=== PATIENT | male | born 1955 | race African-American/Black ===

== ENCOUNTER 2016-06-17 12:38 | Observation (INO) | payer OTHER ==
[2016-06-17] MEDS ORDERED: ADENOSINE 6 MG/2 ML VIAL IVPUSH ONE ×4 (13:07→13:23)
[2016-06-17 13:19] LABS: EOSINOPHIL 0.9 % (0-4.5); MCH 30.2 pg (25.7-33.7); MCHC 32.7 g/dl (32.0-35.9); MEAN CELL VOLUME 92.3 fl (80-96); MEAN PLT VOLUME 9.3 fl (7.5-11.1); NEUTROPHILS 72.1 % (42.8-82.8); PLATELET COUNT 75 K/MM3 (134-434); RDW 15.6 % (11.9-15.9); WHITE BLOOD COUNT 5.2 K/mm3 (4.0-10.0)
[2016-06-17 13:32] LABS: INR 1.28 (0.82-1.09); PROTHROMBIN TIME (PATIENT) 14.1 SEC (9.98-11.88)
[2016-06-17 13:36] LABS: ALBUMIN 2.8 g/dl (3.4-5.0); ANION GAP 9 (8-16); BILIRUBIN,TOTAL 0.4 mg/dL (0.2-1.0); CALCIUM 8.6 mg/dL (8.5-10.1); CO2 25 mmol/L (21-32); CREATININE 1.7 mg/dL (0.7-1.3); GLUCOSE,RANDOM 125 mg/dL (74-106); SGOT/AST 24 U/L (15-37); SGPT/ALT 16 U/L (12-78)
[2016-06-17 13:38] LABS: ALK PHOS 133 U/L (45-117); TROPONIN I < 0.02 ng/ml (0.00-0.05)
--- NOTE | 2016-06-17 14:32 | PDOC ---
History of Present Illness - General Chief Complaint: Irregular Heart Beat Stated Complaint: FAST HEARTBEAT Time Seen by Provider: 06/17/16 12:47 History Source: Patient Exam Limitations: No Limitations - History of Present Illness Initial Comments: 06/17/16 14:26 61-year-old male with the ED with complaints of palpitations, and dizziness. Patient states the past 2 days has been constipated and has been taking over-the -counter medication which did alleviate his constipation but today at his day program after leaving the bathroom he had felt suddenly hot and dizzy. The staff at the day program where he goes to for his methadone and therapy. He currently denies chest pain or dizziness upon arrival. Patient denies previous symptoms in the past and denies cardiac history. Patient does of his of HIV, hep C and IVDA with heroin but currently on methadone. Presenting Symptoms: Dizziness Timing/Duration: reports: resolved prior to arrival Prior Chest Pain/Cardiac Workup: reports: No prior chest pain Associated Symptoms: Yes: Dizziness, Palpitations Past History - Past Medical History Allergies/Adverse Reactions: Allergies Allergy/AdvReac Type Severity Reaction Status Date / Time No Known Allergies Allergy Verified 02/15/16 04:25 Home Medications: Ambulatory Orders Methadone [Dolophine] 40 mg PO DAILY 01/28/13 Abacavir/Dolutegravir/Lamivudi [Triumeq Tablet] 1 each PO DAILY #30 tablet 02/21 Oxycodone HCl/Acetaminophen [Oxycodone-Acetaminophen 10-325] 1 each PO DAILY #7 tablet MDD 1 02/22/16 Elbasvir/Grazoprevir [Zepatier 50-100 mg Tablet] 1 each PO DAILY 05/01/16 Hydrocortisone 1% Ointment [Hytone 1% Ointment -] 1 applic TP BID #1 tube Clotrimazole/Betamet Diprop [Lotrisone Cream (Small Tube)] 1 applic TP BID #1 tube 05/06/16 Loratadine [Claritin] 10 mg PO DAILY #30 tablet 06/09/16 Tamsulosin HCl [Flomax] 0.4 mg PO DAILY #30 cap.er.24h 06/09/16 Valsartan/Hydrochlorothiazide [Diovan Hct 160-25 mg Tablet] 1 combo PO DAILY # 30 tablet 06/13/16 Docusate Sodium [Colace -] 100 mg PO BID #60 capsule 06/16/16 Anemia: Yes Asthma: No Cancer: No Cardiac Disorders: No CVA: No COPD: No CHF: No Dementia: No Diabetes: No GI Disorders: No Disorders: Yes HTN: Yes Hypercholesterolemia: No HIV: Yes Kidney Stones: Yes Liver Disease: Yes (Elevated LFTs, Heroin, Hep C and Alcohol) Suicide Attempt (Hx): No Seizures: No Other medical history: hep C - Immunization History Td Vaccination: Yes TDAP Vaccination: Yes Immunization Up to Date: Yes (FLU AND PNA UP TO DATE) - Psycho/Social/Smoking Cessation Hx Anxiety: No Suicidal Ideation: No Smoking Status: No Smoking History: Former smoker Have you smoked in the past 12 months: No Number of Cigarettes Smoked Daily: 0 If you are a former smoker, when did you quit?: 2YRS Cigars Per Day: 0 Information on smoking cessation initiated: No Hx Alcohol Use: No Drug/Substance Use Hx: Yes Substance Use Type: Heroin Hx Substance Use Treatment: Yes Patient Lives Alone: No Cardiac Specific PMH - Complaint Specific PMHX Pacemaker: No Review of Systems - Review of Systems Able to Perform ROS?: Yes Constitutional: No: Symptoms Reported HEENTM: No: Symptoms Reported Respiratory: No: Symptoms reported Cardiac (ROS): Yes: Lightheadedness, Palpitations ABD/GI: No: Symptoms Reported Musculoskeletal: No: Symptoms Reported Integumentary: No: Symptoms Reported Neurological: Yes: Dizziness Endocrine: No: Symptoms Reported Hematologic/Lymphatic: No: Symptoms Reported *Physical Exam - Vital Signs Last Vital Signs Temp Pulse Resp BP Pulse Ox 98.1 F 98 H 18 138/87 100 06/17/16 12:59 06/17/16 13:46 06/17/16 13:38 06/17/16 13:38 06/17/16 13:38 - Physical Exam General Appearance: Yes: Nourished, Appropriately Dressed. No: Apparent Distress HEENT: negative: Pale Conjunctivae Neck: positive: Supple Respiratory/Chest: positive: Lungs Clear, Normal Breath Sounds. negative: Respiratory Distress, Accessory Muscle Use Cardiovascular: positive: Regular Rhythm, Tachycardia. negative: Murmur Gastrointestinal/Abdominal: positive: Soft. negative: Tenderness Extremity: positive: Normal Capillary Refill. negative: Pedal Edema Integumentary: positive: Normal Color, Warm, Moist Neurologic: positive: Normal Mood/Affect, Motor Strength 5/5 (ambulatory) Heart Score/ECG Review - ECG Impressions Tachycardia: Ventricullar Tachycardia (rate 150.) ED Treatment Course - LABORATORY CBC & Chemistry Diagram: 06/17/16 13:10 06/17/16 13:10 - ADDITIONAL ORDERS Additional order review: Laboratory Results 06/17/16 06/17/16 06/17/16 13:10 13:10 13:10 INR Sodium 137 Potassium 3.5 Chloride 103 Carbon Dioxide 25 Anion Gap 9 BUN 21 H D Creatinine 1.7 H Creat Clearance w eGFR 41.04 Random Glucose 125 H D Calcium 8.6 Total Bilirubin 0.4 D AST 24 D ALT 16 D Alkaline Phosphatase 133 H Creatine Kinase 182 D Creatine Kinase Index 1.3 CK-MB (CK-2) 2.443 CK-MB (CK-2) Rel Index Cancelled Troponin I < 0.02 Total Protein 8.0 Albumin 2.8 L Urine Color Urine Appearance Urine pH Ur Specific [place] Urine Protein Urine Glucose (UA) Urine Ketones Urine Blood Urine Nitrite Urine Bilirubin Urine Urobilinogen Ur Leukocyte Esterase Blood Type A NEGATIVE Antibody Screen Negative 06/17/16 06/17/16 13:10 13:10 INR 1.28 H Sodium Potassium Chloride Carbon Dioxide Anion Gap BUN Creatinine Creat Clearance w eGFR Random Glucose Calcium Total Bilirubin AST ALT Alkaline Phosphatase Creatine Kinase Creatine Kinase Index CK-MB (CK-2) CK-MB (CK-2) Rel Index Troponin I Total Protein Albumin Urine Color Straw Urine Appearance Clear Urine pH 6.0 Ur Specific [place] 1.006 Urine Protein Negative Urine Glucose (UA) Negative Urine Ketones Negative Urine Blood Negative Urine Nitrite Negative Urine Bilirubin Negative Urine Urobilinogen Negative Ur Leukocyte Esterase Negative Blood Type Antibody Screen 06/17/16 13:10 RBC 3.60 L MCV 92.3 MCHC 32.7 RDW 15.6 MPV 9.3 D Neutrophils % 72.1 Lymphocytes % 17.7 Monocytes % 8.3 Eosinophils % 0.9 Basophils % 1.0 - RADIOLOGY Radiology Studies Ordered: Category Date Time Status CHEST X-RAY PORTABLE* [RAD] Stat Radiology 06/17/16 13:08 Completed - Medications Given in the ED: ED Medications Discontinued Medications Generic Name Dose Route Start Last Admin Trade Name Freq PRN Reason Stop Dose Admin Adenosine 6 mg 06/17/16 13:07 06/17/16 13:20 Adenocard - IVPUSH 06/17/16 13:08 6 mg ONCE ONE Administration Adenosine 12 mg 06/17/16 13:23 06/17/16 13:25 Adenocard - IVPUSH 06/17/16 13:24 12 mg ONCE ONE Administration Diltiazem HCl 30 mg 06/17/16 14:41 06/17/16 15:02 Cardizem - PO 06/17/16 14:42 30 mg ONCE ONE Administration Medical Decision Making - Medical Decision Making 06/17/16 13:30 Patient arrives for evaluation of palpitations and elevated heart rate noted in day program where she receives her methadone. Patient denies previous symptoms and currently is asymptomatic. Patient initially had dizziness with palpitations after moving her bowels. Patient found to be in SVT on EKG and monitor. Attempted vagal manuever/massage with no improvment. IV access was established by EMS. Patient was ordered for adenosine 6 mg IVP, placed on EKG and oxygen. Patient with normal blood pressure. 06/17/16 13:37 Patient did not improve so was given an additional dose of adenosine 12 mg IV push. Patient then converted to normal sinus rhythm with a rate of 106. Patient remains asymptomatic. IV fluids running. Blood pressure 139/74. Call placed to Dr. Fernández. Will admit to the hospitalist. 06/17/16 14:40 chest x-ray negative Laboratory Tests 06/17/16 06/17/16 06/17/16 13:10 13:10 13:10 WBC 5.2 Hgb 10.9 L Hct 33.2 L Neutrophils % 72.1 INR 1.28 H Sodium Potassium Chloride Carbon Dioxide Anion Gap BUN Creatinine Creat Clearance w eGFR Random Glucose Calcium AST ALT Alkaline Phosphatase Troponin I Urine Ketones Negative Urine Nitrite Negative Ur Leukocyte Esterase Negative Blood Type 06/17/16 06/17/16 13:10 13:10 WBC Hgb Hct Neutrophils % INR Sodium 137 Potassium 3.5 Chloride 103 Carbon Dioxide 25 Anion Gap 9 BUN 21 H D Creatinine 1.7 H Creat Clearance w eGFR 41.04 Random Glucose 125 H D Calcium 8.6 AST 24 D ALT 16 D Alkaline Phosphatase 133 H Troponin I < 0.02 Urine Ketones Urine Nitrite Ur Leukocyte Esterase Blood Type A NEGATIVE Spoke to Dr. Fernández who states to give Cardizem 30 mg now by mouth and to continue every 6 hours *DC/Admit/Observation/Transfer Diagnosis at time of Disposition: SVT (supraventricular tachycardia) - Discharge Dispostion Admit: Yes Decision to Admit order Date/Time: Decision to Admit Order Category Date Time Status Decision to Admit to Hospital Routine Admission 06/17/16 14:42 Active
[2016-06-17 14:33] LABS: URINE APPEARANCE CLEAR; URINE BILIRUBIN NEGATIVE (NEGATIVE); URINE BLOOD NEGATIVE (NEGATIVE); URINE COLOR STRAW; URINE GLUCOSE (UA) NEGATIVE (NEGATIVE); URINE KETONE NEGATIVE (NEGATIVE); URINE LEUK ESTERASE NEGATIVE (NEGATIVE); URINE NITRITE NEGATIVE (NEGATIVE); URINE PROTEIN NEGATIVE (NEGATIVE); URINE UROBILINOGEN NEGATIVE E.U./dl (0.2-1.0)
[2016-06-17] MEDS ORDERED: dilTIAZem HCL 30 MG TABLET (FP) PO ONE (14:41)
--- NOTE | 2016-06-17 14:42 | PDOC ---
*Physical Exam - Vital Signs Last Vital Signs Temp Pulse Resp BP Pulse Ox 98.1 F 98 H 18 138/87 100 06/17/16 12:59 06/17/16 13:46 06/17/16 13:38 06/17/16 13:38 06/17/16 13:38 ED Treatment Course - LABORATORY CBC & Chemistry Diagram: 06/17/16 13:10 06/17/16 13:10 - ADDITIONAL ORDERS Additional order review: Laboratory Results 06/17/16 06/17/16 06/17/16 13:10 13:10 13:10 INR Sodium 137 Potassium 3.5 Chloride 103 Carbon Dioxide 25 Anion Gap 9 BUN 21 H D Creatinine 1.7 H Creat Clearance w eGFR 41.04 Random Glucose 125 H D Calcium 8.6 Total Bilirubin 0.4 D AST 24 D ALT 16 D Alkaline Phosphatase 133 H Creatine Kinase 182 D Creatine Kinase Index 1.3 CK-MB (CK-2) 2.443 CK-MB (CK-2) Rel Index Cancelled Troponin I < 0.02 Total Protein 8.0 Albumin 2.8 L Urine Color Urine Appearance Urine pH Ur Specific [place] Urine Protein Urine Glucose (UA) Urine Ketones Urine Blood Urine Nitrite Urine Bilirubin Urine Urobilinogen Ur Leukocyte Esterase Blood Type A NEGATIVE Antibody Screen Negative 06/17/16 06/17/16 13:10 13:10 INR 1.28 H Sodium Potassium Chloride Carbon Dioxide Anion Gap BUN Creatinine Creat Clearance w eGFR Random Glucose Calcium Total Bilirubin AST ALT Alkaline Phosphatase Creatine Kinase Creatine Kinase Index CK-MB (CK-2) CK-MB (CK-2) Rel Index Troponin I Total Protein Albumin Urine Color Straw Urine Appearance Clear Urine pH 6.0 Ur Specific [place] 1.006 Urine Protein Negative Urine Glucose (UA) Negative Urine Ketones Negative Urine Blood Negative Urine Nitrite Negative Urine Bilirubin Negative Urine Urobilinogen Negative Ur Leukocyte Esterase Negative Blood Type Antibody Screen 06/17/16 13:10 RBC 3.60 L MCV 92.3 MCHC 32.7 RDW 15.6 MPV 9.3 D Neutrophils % 72.1 Lymphocytes % 17.7 Monocytes % 8.3 Eosinophils % 0.9 Basophils % 1.0 - Medications Given in the ED: ED Medications Discontinued Medications Generic Name Dose Route Start Last Admin Trade Name Freq PRN Reason Stop Dose Admin Adenosine 6 mg 06/17/16 13:07 06/17/16 13:20 Adenocard - IVPUSH 06/17/16 13:08 6 mg ONCE ONE Administration Adenosine 12 mg 06/17/16 13:23 06/17/16 13:25 Adenocard - IVPUSH 06/17/16 13:24 12 mg ONCE ONE Administration Medical Decision Making - Medical Decision Making 06/17/16 14:41 61y M hx of HIV, HCV on meds, IVDA on methadone, presents with tachcyardia - pt was at his day program, was having a BM and was straining, then felt hot and dizzy. The staffa t the day program noted that he was tachycardic. ON arrival the pts HR was in the 150s, bp was normal. His EKG showed SVT. Vagal maneuvers were attemped without success. The pt was given 6mg of adenosine w/o improvement followed by 12mg of adenosine which broke the pts HR into a NSR. BP stable throughout. CRITICAL CARE DOCUMENTATION: I spent ~35 minutes of Critical Care time, excluding separately billable procedures, involving high complexity decision making to assess, manipulate and support vital system function(s) to treat single or multiple vital organ system failure and/or to prevent further life threatening deterioration of the patient' s condition. *DC/Admit/Observation/Transfer Diagnosis at time of Disposition: SVT (supraventricular tachycardia) - Referrals Referrals: Marcus Garza MD [Primary Care Provider] -
[2016-06-17] MEDS ORDERED: dilTIAZem HCL 30 MG TABLET (FP) ONE (14:59)
[2016-06-17 17:29] VITALS: BMI 27.7
--- NOTE | 2016-06-17 18:48 | CON.CARD ---
Consult Consult Specialty:: cardiology Reason for Consultation:: arrhythmia - History of Present Illness History of Present Illness: 61-year-old male came to the ER with complaints of palpitations and dizziness. Patient stated that for the past 2 days he has been constipated and has been taking a [id number] medication which helped, but today at his day program , after leaving the bathroom, he felt suddenly hot and dizzy, and had palpitations. He currently denies chest pain or dizziness upon arrival. Patient denies previous symptoms in the past and denies cardiac history. Patient has PMHx of HIV, hep C and IVDA with heroin; currently on methadone. Pt was found to be in SVT; the arrhythmia was converted to sinus rhythm with IV adenosine. - History Source History Provided By: Patient, Medical Record - Past Medical History Hepatobiliary: Yes: Hepatitis C Infectious Disease: Yes: HIV Psych: Yes: Other (substance abuse) - Alcohol/Substance Use Hx Alcohol Use: No - Smoking History Smoking history: Former smoker Have you smoked in the past 12 months: No Aproximately how many cigarettes per day: 0 If you are a former smoker, when did you quit?: 2YRS Home Medications - Allergies Allergies/Adverse Reactions: Allergies Allergy/AdvReac Type Severity Reaction Status Date / Time No Known Allergies Allergy Verified 02/15/16 04:25 - Home Medications Home Medications: Ambulatory Orders Methadone [Dolophine] 50 mg PO DAILY 01/28/13 Abacavir/Dolutegravir/Lamivudi [Triumeq Tablet] 1 each PO DAILY #30 tablet 02/21 Elbasvir/Grazoprevir [Zepatier 50-100 mg Tablet] 1 each PO DAILY 05/01/16 Tamsulosin HCl [Flomax] 0.4 mg PO DAILY #30 cap.er.24h 06/09/16 Valsartan/Hydrochlorothiazide [Diovan Hct 160-25 mg Tablet] 1 combo PO DAILY # 30 tablet 06/13/16 Vital Signs: Vital Signs Temperature 97.5 F L 06/17/16 17:00 Pulse Rate 85 06/17/16 17:00 Respiratory Rate 20 06/17/16 17:00 Blood Pressure 143/84 06/17/16 17:00 O2 Sat by Pulse Oximetry (%) 100 06/17/16 16:16 - Other Data Labs, Other Data: INR, PTT INR 1.28 (0.82-1.09) H 06/17/16 13:10 Imaging - Results Chest X-ray: Image Reviewed (normal study) Problem List - Problems (1) BPH (benign prostatic hyperplasia) Code(s): N40.0 - BENIGN PROSTATIC HYPERPLASIA WITHOUT LOWER URINRY TRACT SYMP (2) SVT (supraventricular tachycardia) Assessment/Plan: Start diltiazem 30 mg q6h; change to long-acting tomorrow if the medication is tolerated. ECHO for LVEF, chamber sizes, valve status. TSH Code(s): I47.1 - SUPRAVENTRICULAR TACHYCARDIA (3) HIV (human immunodeficiency virus infection) Assessment/Plan: f/u with ID. Code(s): Z21 - ASYMPTOMATIC HUMAN IMMUNODEFICIENCY VIRUS INFECTION STATUS (4) Hepatitis C Code(s): B19.20 - UNSPECIFIED VIRAL HEPATITIS C WITHOUT HEPATIC COMA (5) Hypertension Assessment/Plan: On valsartan/HCTZ at home (f/u renal insufficiency). Now on diltiazem for HR control; F/u BP and HR. ECHO for LVEF, wall motion thickness, chamber sizes. TSH WNL in 2016. Code(s): I10 - ESSENTIAL (PRIMARY) HYPERTENSION (6) Methadone maintenance therapy patient Code(s): F11.20 - OPIOID DEPENDENCE, UNCOMPLICATED (7) Hypotestosteronemia Code(s): E29.1 - TESTICULAR HYPOFUNCTION
--- NOTE | 2016-06-17 19:10 | HP ---
CHIEF COMPLAINT: Palpitations and dizziness PCP: Dr. Garza HISTORY OF PRESENT ILLNESS: 61 y/o M with PMH of HIV, HCV, hx of IVDA, on methadone presents to ER after c/ o palpitations and dizziness. Pt was at drug rehab program where he had to use bathroom and had BM after having 2 days of constipation. Pt got up from toilet and began feeling hot. Soon afterwards he began feeling dizziness and palpitations and nurse there measured his BP (systolic 140s), and pulse which he states was "fast" but does not recall the pulse rate. EMS was called when he did not begin to feel better. He denied any CP, SOB, pain radiating to jaw or arms, abd pain. He began feeling better before EMS arrived. He states he has been in the methadone program for 6-7 months but still intermittently uses heroin. Last time he used was 5 days ago via sniffing. He denies ever having similar symptoms. He says he is compliant with all his medications and follows with Dr. Garza regularly. In ER he was found to have SVT and was given 6mg adenosine with no conversion then given 12 mg adenosine with successful conversion to NSR. He currently feels back at baseline. Denies any CP, SOB, abd pain, N/V/F/C, palpitations, light-headedness, dizziness, and has no trouble ambulating currently. ER course was notable for: (1) Adenosine 6mg IV, Adenosine 12mg IV (2) (3) Recent Travel: denies PAST MEDICAL HISTORY: HIV, HCV, hx of IVDA PAST SURGICAL HISTORY: denies any surgeries Social History: Smoking: quit 2 years ago, smoked 1ppd for 20 years Alcohol: denies Drugs: heroin use, on methadone Family History: Mother: HTN Allergies No Known Allergies Allergy (Verified 02/15/16 04:25) HOME MEDICATIONS: Medication Instructions Recorded Methadone [Dolophine] 50 mg PO DAILY 01/28/13 Abacavir/Dolutegravir/Lamivudi 1 each PO DAILY #30 tablet 02/22/16 [Triumeq Tablet] Elbasvir/Grazoprevir [Zepatier 1 each PO DAILY 05/01/16 50-100 mg Tablet] Tamsulosin HCl [Flomax] 0.4 mg PO DAILY #30 cap.er.24h 01/23/17 Valsartan/Hydrochlorothiazide 1 combo PO DAILY #30 tablet 06/13/16 [Diovan Hct 160-25 mg Tablet] REVIEW OF SYSTEMS CONSTITUTIONAL: Absent: fever, chills, diaphoresis, generalized weakness, malaise, loss of appetite, weight change HEENT: Absent: rhinorrhea, nasal congestion, throat pain, throat swelling, difficulty swallowing, mouth swelling, ear pain, eye pain, visual changes CARDIOVASCULAR: Absent: chest pain, syncope, palpitations, irregular heart rate, lightheadedness , peripheral edema RESPIRATORY: Absent: cough, shortness of breath, dyspnea with exertion, orthopnea, wheezing, stridor, hemoptysis GASTROINTESTINAL: Absent: abdominal pain, abdominal distension, nausea, vomiting, diarrhea, constipation, melena, hematochezia GENITOURINARY: Absent: dysuria, frequency, urgency, hesitancy, hematuria, flank pain, genital pain MUSCULOSKELETAL: Absent: myalgia, arthralgia, joint swelling, back pain, neck pain SKIN: Absent: rash, itching, pallor HEMATOLOGIC/IMMUNOLOGIC: Absent: easy bleeding, easy bruising, lymphadenopathy, frequent infections ENDOCRINE: Absent: unexplained weight gain, unexplained weight loss, heat intolerance, cold intolerance NEUROLOGIC: Absent: headache, focal weakness or paresthesias, dizziness, unsteady gait, seizure, mental status changes, bladder or bowel incontinence PSYCHIATRIC: Absent: anxiety, depression, suicidal or homicidal ideation, hallucinations. PHYSICAL EXAMINATION Vital Signs - 24 hr 06/17/16 06/17/16 06/17/16 15:45 16:16 17:00 Temperature 97.5 F L Pulse Rate 105 H 85 Pulse Rate [ 105 H Apical] Respiratory 18 18 20 Rate Blood Pressure 148/92 143/84 Blood Pressure 148/92 [Right Arm] O2 Sat by Pulse 100 100 Oximetry (%) GENERAL: Awake, alert, and fully oriented, in no acute distress. HEAD: Normal with no signs of trauma. EYES: Pupils equal, round and reactive to light, extraocular movements intact, sclera anicteric, conjunctiva clear. No lid lag. EARS, NOSE, THROAT: Ears normal, nares patent, oropharynx clear without exudates. Moist mucous membranes. NECK: Normal range of motion, supple without lymphadenopathy, JVD, or masses. LUNGS: Breath sounds equal, clear to auscultation bilaterally. No wheezes, and no crackles. No accessory muscle use. HEART: Regular rate and rhythm, normal S1 and S2 without murmur, rub or gallop. ABDOMEN: Soft, nontender, not distended, normoactive bowel sounds, no guarding, no rebound, no masses. No hepatomegaly or splenomegaly. MUSCULOSKELETAL: Normal range of motion at all joints. No bony deformities or tenderness. No CVA tenderness. UPPER EXTREMITIES: 2+ pulses, warm, well-perfused. No cyanosis. No clubbing. Cap refill <2 seconds. No peripheral edema. LOWER EXTREMITIES: 2+ pulses, warm, well-perfused. No calf tenderness. No peripheral edema. NEUROLOGICAL: Cranial nerves II-XII intact. Normal speech. Normal gait. PSYCHIATRIC: Cooperative. Good eye contact. Appropriate mood and affect. SKIN: Warm, dry, normal turgor, no rashes or lesions noted. CBCD WBC 5.2 K/mm3 (4.0-10.0) 06/17/16 13:10 RBC 3.60 M/mm3 (4.00-5.60) L 06/17/16 13:10 Hgb 10.9 GM/dL (11.7-16.9) L 06/17/16 13:10 Hct 33.2 % (35.4-49) L 06/17/16 13:10 MCV 92.3 fl (80-96) 06/17/16 13:10 MCHC 32.7 g/dl (32.0-35.9) 06/17/16 13:10 RDW 15.6 % (11.9-15.9) 06/17/16 13:10 Plt Count 75 K/MM3 (134-434) L 06/17/16 13:10 MPV 9.3 fl (7.5-11.1) D 06/17/16 13:10 CMP Sodium 137 mmol/L (136-145) 06/17/16 13:10 Potassium 3.5 mmol/L (3.5-5.1) 06/17/16 13:10 Chloride 103 mmol/L (98-107) 06/17/16 13:10 Carbon Dioxide 25 mmol/L (21-32) 06/17/16 13:10 Anion Gap 9 (8-16) 06/17/16 13:10 BUN 21 mg/dL (7-18) H D 06/17/16 13:10 Creatinine 1.7 mg/dL (0.7-1.3) H 06/17/16 13:10 Creat Clearance w eGFR 41.04 (>60) 06/17/16 13:10 Random Glucose 125 mg/dL (74-106) H D 06/17/16 13:10 Calcium 8.6 mg/dL (8.5-10.1) 06/17/16 13:10 Total Bilirubin 0.4 mg/dL (0.2-1.0) D 06/17/16 13:10 AST 24 U/L (15-37) D 06/17/16 13:10 ALT 16 U/L (12-78) D 06/17/16 13:10 Alkaline Phosphatase 133 U/L (45-117) H 06/17/16 13:10 Total Protein 8.0 g/dl (6.4-8.2) 06/17/16 13:10 Albumin 2.8 g/dl (3.4-5.0) L 06/17/16 13:10 CARDIAC ENZYMES Creatine Kinase 182 IU/L (39-308) D 06/17/16 13:10 Troponin I < 0.02 ng/ml (0.00-0.05) 06/17/16 13:10 ASSESSMENT/PLAN: 61 y/o M w/PMH of HIV (on meds), HCV (on meds), IVDA, on methadone presented to ER with SVT and was successfully converted to NSR and currently in obs on tele. -SVT -Successful conversion via adenosine -Monitor on tele -Trops neg X1, will continue to trend -Echo ordered -Currently in NSR, denies any palpitations, CP -TSH -cardio on board -HTN -c/w diovan 160/25 po qd -HIV -c/w meds -HCV -c/w meds -Dispo: -Monitor on tele overnight, most likely will be able to discharge tomorrow if he continues to stay in NSR Visit type - Emergency Visit Emergency Visit: Yes ED Registration Date: 06/17/16 Care time: The patient presented to the Emergency Department on the above date and was hospitalized for further evaluation of their emergent condition. - New Patient This patient is new to me today: Yes Date on this admission: 06/17/16 - Critical Care Critical Care patient: No
--- NOTE | 2016-06-17 19:58 | PN ---
Teaching Attending Note Name of Resident: Jorge Luis Haynes ATTENDING PHYSICIAN STATEMENT I saw and evaluated the patient. I reviewed the resident's note and discussed the case with the resident. I agree with the resident's findings and plan as documented. SUBJECTIVE: This is a 61-year-old man with a history of HIV, hepatitis C, HTN, BPH, IV drug use who was at [facility] for Methadone today when he suddenly became hot and dizzy. He had palpitations. He was found to be tachycardic and was sent to the ER. In the ER, he was found to be in SVT. He was treated with Adenosine 6 mg IV without results then 12 mg IV, after which he converted to sinus rhythm. He currently feels well. OBJECTIVE: Vital Signs Period Temp Pulse Resp BP Sys/Skinner Pulse Ox Last 24 Hr 97.5 F-98.1 F 85-148 18-20 137-148/84-95 100-100 HEART: S1 S2, RRR LUNGS: Clear ABDOMEN: Soft, non-tender, non-distended, normal BS EXTREMITIES: No edema ASSESSMENT AND PLAN: 1. SVT - Converted to sinus rhythm with Adenosine - Observe on telemetry - Serial troponins - Echocardiogram - Cardiology consult 2. HIV - Continue Triumeq 3. Hepatitis C - Continue Zepatier 4. Hypertension - Continue Diovan HCT 5. Opiate dependence - Continue Methadone 6. BPH - Continue Flomax
--- NOTE | 2016-06-17 23:14 | EKG ---
Test Reason : Blood Pressure : / mmHG Vent. Rate : 145 BPM Atrial Rate : 147 BPM P-R Int : 000 ms QRS Dur : 086 ms QT Int : 290 ms P-R-T Axes : 000 040 -72 degrees QTc Int : 450 ms SUPRAVENTRICULAR TACHYCARDIA WITH OCCASIONAL PREMATURE VENTRICULAR COMPLEXES NONSPECIFIC ST AND T WAVE ABNORMALITY ABNORMAL ECG WHEN COMPARED WITH ECG OF 28-JAN-2013 21:38, NOTE RHYTHM CHANGE VENT. RATE HAS INCREASED Confirmed by MINE PADGETT, MCKINLEY ([id number]) on 06/17/2016 11:14:27 PM Referred By: Confirmed By:MCKINLEY BLOUNT MD
[2016-06-18 08:01] LABS: TROPONIN I 0.02 ng/ml (0.00-0.05)
[2016-06-18 08:21] LABS: THYROID STIMULATING HORMONE 3.78 uIU/ml (0.358-3.74)
[2016-06-18] MEDS ORDERED: TAMSULOSIN HCL 0.4 MG CAP.ER.24H (FP) PO SCH (10:00)
[2016-06-18] MEDS ORDERED: PATIENT'S OWN MEDICATION (NON-FORMULARY) (Valsartan/Hydrochlorothiazide [Diovan Hct 160-25 PO SCH (10:00)
[2016-06-18] MEDS ORDERED: METHADONE HCL 40 MG DISPERSABLE TABLET PO SCH (10:00)
[2016-06-18] MEDS ORDERED: HYDROCHLOROTHIAZIDE 25 MG TABLET (FP) PO SCH (10:00)
[2016-06-18] MEDS ORDERED: VALSARTAN 160 MG TABLET (UD) PO SCH (10:00)
--- NOTE | 2016-06-18 11:23 | PN ---
Progress Note, Physician History of Present Illness: 61-year-old male came to the ER with complaints of palpitations and dizziness. Patient stated that for the past 2 days he has been constipated and has been taking a [id number] medication which helped, but today at his day program , after leaving the bathroom, he felt suddenly hot and dizzy, and had palpitations. He currently denies chest pain or dizziness upon arrival. Patient denies previous symptoms in the past and denies cardiac history. Patient has PMHx of HIV, hep C and IVDA with heroin; currently on methadone. Pt was found to be in SVT; the arrhythmia was converted to sinus rhythm with IV adenosine. - Current Medication List Current Medications: Active Medications Hydrochlorothiazide (Hctz -) 25 mg PO DAILY [facility] Last Admin: 06/18/16 10:04 Dose: 25 mg Methadone HCl (Dolophine -) 50 mg PO DAILY [facility] Stop: 06/19/16 09:59 Tamsulosin HCl (Flomax -) 0.4 mg PO DAILY [facility] Last Admin: 06/18/16 10:04 Dose: 0.4 mg Valsartan (Diovan -) 160 mg PO DAILY [facility] Last Admin: 06/18/16 10:03 Dose: 160 mg - Objective Vital Signs: Vital Signs Temperature 98.2 F 06/18/16 10:00 Pulse Rate 76 06/18/16 10:00 Respiratory Rate 14 06/18/16 10:00 Blood Pressure 118/62 06/18/16 10:00 O2 Sat by Pulse Oximetry (%) 98 06/18/16 06:00 Eyes: Yes: WNL, Conjunctiva Clear, EOM Intact HENT: Yes: WNL, Atraumatic, Normocephalic Neck: Yes: WNL, Supple, Trachea Midline Cardiovascular: Yes: WNL, Regular Rate and Rhythm Respiratory: Yes: WNL, Regular, CTA Bilaterally Gastrointestinal: Yes: WNL, Normal Bowel Sounds Genitourinary: Yes: WNL Musculoskeletal: Yes: WNL Extremities: Yes: WNL Edema: No Integumentary: Yes: WNL Neurological: Yes: WNL, Alert, Oriented ...Motor Strength: WNL Psychiatric: Yes: WNL Labs: INR, PTT INR 1.28 (0.82-1.09) H 06/17/16 13:10 Assessment/Plan Problems (1) BPH (benign prostatic hyperplasia) Code(s): N40.0 - BENIGN PROSTATIC HYPERPLASIA WITHOUT LOWER URINRY TRACT SYMP (2) SVT (supraventricular tachycardia) Assessment/Plan: Start diltiazem 30 mg q6h; change to long-acting tomorrow if the medication is tolerated. ECHO for LVEF, chamber sizes, valve status. TSH Code(s): I47.1 - SUPRAVENTRICULAR TACHYCARDIA (3) HIV (human immunodeficiency virus infection) Assessment/Plan: f/u with ID. Code(s): Z21 - ASYMPTOMATIC HUMAN IMMUNODEFICIENCY VIRUS INFECTION STATUS (4) Hepatitis C Code(s): B19.20 - UNSPECIFIED VIRAL HEPATITIS C WITHOUT HEPATIC COMA (5) Hypertension Assessment/Plan: On valsartan/HCTZ at home (f/u renal insufficiency). Now on diltiazem for HR control; F/u BP and HR. ECHO for LVEF, wall motion thickness, chamber sizes. TSH WNL in 2016. Code(s): I10 - ESSENTIAL (PRIMARY) HYPERTENSION (6) Methadone maintenance therapy patient Code(s): F11.20 - OPIOID DEPENDENCE, UNCOMPLICATED (7) Hypotestosteronemia Code(s): E29.1 - TESTICULAR HYPOFUNCTION
[2016-06-18 13:22] VITALS: PULSE 74; TEMP 97.8
--- NOTE | 2016-06-18 13:42 | EKG ---
Test Reason : Blood Pressure : / mmHG Vent. Rate : 088 BPM Atrial Rate : 088 BPM P-R Int : 228 ms QRS Dur : 078 ms QT Int : 384 ms P-R-T Axes : 069 032 023 degrees QTc Int : 464 ms SINUS RHYTHM WITH 1ST DEGREE A-V BLOCK OTHERWISE NORMAL ECG WHEN COMPARED WITH ECG OF 17-JUN-2016 13:30, PREMATURE VENTRICULAR COMPLEXES ARE NO LONGER PRESENT Confirmed by DEBBIE PADGETT, SHILPA ([id number]) on 06/18/2016 1:41:47 PM Referred By: CLARISSE BOLDEN DR Confirmed By:SHILPA LEWIS MD
--- NOTE | 2016-06-18 14:16 | DS ---
Physical Exam: ATTENDING PHYSICIAN STATEMENT I saw and evaluated the patient. I reviewed the resident's note and discussed the case with the resident. I agree with the resident's findings and plan as documented. SUBJECTIVE: seen and evaluated at the bedside OBJECTIVE: resting comfortably in bed ASSESSMENT AND PLAN: 61 y/o M with PMH of HIV, HCV, hx of IVDA, on methadone admitted for SVT -pt converted to NSR after adenosine 6mg and then 12mg was given -remained in NSR on telemetry overnight -trops negative and no ischemic changes on EKG -no mention of gross valvular dysfunction or atrial dilation noted on 2D echo -recommendation from cardio attending yesterday was to start diltiazem 30 Q6 but this was not done and pt has still remained in NSR; follow up with cardio if this is still needed -pt is currently asymptomatic and will be discharged home today after discussing with cardio attending <Hever Gold - Last Filed: 06/18/16 15:29> Physical Exam: SUBJECTIVE: Patient seen and examined at bedside. Feels well today. Denies any chest pain, tightness, palpitations, N/V/F/C, light-headedness, dizziness. OBJECTIVE: Vital Signs Temperature 97.8 F 06/18/16 13:20 Pulse Rate 74 06/18/16 13:20 Respiratory Rate 14 06/18/16 13:20 Blood Pressure 154/79 06/18/16 13:20 O2 Sat by Pulse Oximetry (%) 96 06/18/16 10:00 PHYSICAL EXAM GENERAL: Awake, alert, and fully oriented, in no acute distress. HEAD: Normal with no signs of trauma. EYES: Pupils equal, round and reactive to light, extraocular movements intact, sclera anicteric, conjunctiva clear. No lid lag. EARS, NOSE, THROAT: Ears normal, nares patent, oropharynx clear without exudates. Moist mucous membranes. NECK: Normal range of motion, supple without lymphadenopathy, JVD, or masses. LUNGS: Breath sounds equal, clear to auscultation bilaterally. No wheezes, and no crackles. No accessory muscle use. HEART: Regular rate and rhythm, normal S1 and S2 without murmur, rub or gallop. ABDOMEN: Soft, nontender, not distended, normoactive bowel sounds, no guarding, no rebound, no masses. No hepatomegaly or splenomegaly. MUSCULOSKELETAL: Normal range of motion at all joints. No bony deformities or tenderness. No CVA tenderness. UPPER EXTREMITIES: 2+ pulses, warm, well-perfused. No cyanosis. No clubbing. Cap refill <2 seconds. No peripheral edema. LOWER EXTREMITIES: 2+ pulses, warm, well-perfused. No calf tenderness. No peripheral edema. NEUROLOGICAL: Cranial nerves II-XII intact. Normal speech. Normal gait. PSYCHIATRIC: Cooperative. Good eye contact. Appropriate mood and affect. SKIN: Warm, dry, normal turgor, no rashes or lesions noted. LABS Laboratory Results - last 24 hr 06/17/16 06/18/16 18:35 05:35 Troponin I 0.02 0.02 TSH 3.78 H D HOSPITAL COURSE: Date of Admission:06/17/16 Date of Discharge: 06/18/16 61 y/o M with PMH of HIV, HCV, hx of IVDA, on methadone presents to ER after c/ o palpitations and dizziness. Pt was at drug rehab program where he had to use bathroom and had BM after having 2 days of constipation. Pt got up from toilet and began feeling hot. Soon afterwards he began feeling dizziness and palpitations and nurse there measured his BP (systolic 140s), and pulse which he states was "fast" but does not recall the pulse rate. EMS was called when he did not begin to feel better. He denied any CP, SOB, pain radiating to jaw or arms, abd pain. He began feeling better before EMS arrived. He states he has been in the methadone program for 6-7 months but still intermittently uses heroin. Last time he used was 5 days ago via sniffing. He denies ever having similar symptoms. He says he is compliant with all his medications and follows with Dr. Garza regularly. In ER he was found to have SVT and was given 6mg adenosine with no conversion then given 12 mg adenosine with successful conversion to NSR. Pt was observed overnight in hospital and on tele monitor had no episodes of SVT , only PVCs were noted. He had echo done which was unremarkable with normal EF and no LV wall abnormalities. He did not have any symptoms over night or the next morning and felt that he was back at baseline. Pt was discharged and told to f/u with PCP in 1 week and Cardiology (Dr. Mascitelli) in 2 weeks. Minutes to complete discharge: 35 <Jorge Luis Haynes - Last Filed: 06/18/16 17:24> Discharge Summary Current Active Problems Hypertension complications (Acute) BPH (benign prostatic hyperplasia) (Chronic) HIV (human immunodeficiency virus infection) (Chronic) Hepatitis C (Chronic) Hypertension (Chronic) Methadone maintenance therapy patient (Chronic) - Home Medications Comprehensive Discharge Medication List: Ambulatory Orders Methadone [Dolophine] 50 mg PO DAILY 01/28/13 Abacavir/Dolutegravir/Lamivudi [Triumeq Tablet] 1 each PO DAILY #30 tablet 02/21 Elbasvir/Grazoprevir [Zepatier 50-100 mg Tablet] 1 each PO DAILY 05/01/16 Tamsulosin HCl [Flomax] 0.4 mg PO DAILY #30 cap.er.24h 06/09/16 Valsartan/Hydrochlorothiazide [Diovan Hct 160-25 mg Tablet] 1 combo PO DAILY # 30 tablet 06/13/16 <Hever Gold - Last Filed: 06/18/16 15:29> Reason For Visit: SUPRAVENTRICULAR TACYCARDIA Current Active Problems Hypertension complications (Acute) SVT (supraventricular tachycardia) (Acute) BPH (benign prostatic hyperplasia) (Chronic) HIV (human immunodeficiency virus infection) (Chronic) Hepatitis C (Chronic) Hypertension (Chronic) Hypotestosteronemia (Chronic) Methadone maintenance therapy patient (Chronic) - Home Medications Comprehensive Discharge Medication List: Ambulatory Orders Methadone [Dolophine] 50 mg PO DAILY 01/28/13 Abacavir/Dolutegravir/Lamivudi [Triumeq Tablet] 1 each PO DAILY #30 tablet 02/21 Elbasvir/Grazoprevir [Zepatier 50-100 mg Tablet] 1 each PO DAILY 05/01/16 Tamsulosin HCl [Flomax] 0.4 mg PO DAILY #30 cap.er.24h 06/09/16 Valsartan/Hydrochlorothiazide [Diovan Hct 160-25 mg Tablet] 1 combo PO DAILY # 30 tablet 06/13/16 <Jorge Luis Haynes - Last Filed: 06/18/16 17:24> Condition: Improved - Instructions Diet, Activity, Other Instructions: Please follow with your primary care doctor within 1 week. If you begin to feel chest pain, dizziness, feel faint please come back to the ER. Continue taking your medications as prescribed before coming to the hospital. Referrals: Marcus Garza MD [Primary Care Provider] - Disposition: HOME This patient is new to me today: No Emergency Visit: Yes ED Registration Date: 06/17/16 Care time: The patient presented to the Emergency Department on the above date and was hospitalized for further evaluation of their emergent condition. Critical Care patient: No - Discharge Referral Referred to [facility] No <Jorge Luis Haynes - Last Filed: 06/18/16 17:24>
[2016-06-18 14:43] VITALS: BP 154/79
--- NOTE | 2016-06-24 17:50 | EKG ---
Test Reason : Blood Pressure : / mmHG Vent. Rate : 106 BPM Atrial Rate : 106 BPM P-R Int : 208 ms QRS Dur : 068 ms QT Int : 336 ms P-R-T Axes : 064 044 031 degrees QTc Int : 446 ms SINUS TACHYCARDIA WITH OCCASIONAL PREMATURE VENTRICULAR COMPLEXES NONSPECIFIC T WAVE ABNORMALITY ABNORMAL ECG WHEN COMPARED WITH ECG OF 17-JUN-2016 13:00, T WAVE VARIATION Confirmed by MCKINLEY BLOUNT MD ([id number]) on 06/24/2016 5:49:48 PM Referred By: Confirmed By:MCKINLEY BLOUNT MD
== END 2016-06-18 15:02 | disposition home or self-care (01) ==
LOC: JER 12:38 → JERBED 14:42 → INTOOBSV 14:50 → UNDOADMOB 14:50 → J4W 17:15
PROVIDERS: ADMIT Internal Medicine; ATTEND Internal Medicine
DX: I47.1 Supraventricular tachycardia (principal); B19.20 Unspecified viral hepatitis C without hepatic coma; N40.0 Benign prostatic hyperplasia without lower urinary tract symptoms; Z21 Asymptomatic human immunodeficiency virus [HIV] infection status; I10 Essential (primary) hypertension; F11.20 Opioid dependence, uncomplicated
CPT/HCPCS: 36415; 71010-TC; 80053; 81003; 82550; 82553; 84443; 84484; 85025; 85610; 86850; 86900; 86901; 93005; 93010; 93306-TC; 99285-25; G0378

== ENCOUNTER 2017-10-15 14:24 | Inpatient (IN) | payer OTHER ==
[2017-10-15 17:57] VITALS: BMI 27.1
--- NOTE | 2017-10-15 20:47 | HP ---
Admission ROS [facility] Chief Complaint: COURT MANDATED TO INPATIENT REHAB FOR HX/O OPIATE USE Allergies/Adverse Reactions: Allergies Allergy/AdvReac Type Severity Reaction Status Date / Time No Known Allergies Allergy Verified 10/15/17 19:20 History of Present Illness: 62Y.O. MALE WITH LONG HX/O OPIOID DEPDENCE HERE FOR INPATIENT REHAB SERVICES. CLIENT REPORTS HE WAS DC FROM [place] YESTERDAY AND HAS BEEN COURT MANDATED TO INPATIENT REHAB. HE REPORTS HIS LAST USE OF HEROIN WAS A MONTH AGO. REPORTS LONGEST CLEAN TIME 5 YEARS WHILE INCARCERATED. DENIES PAST OD, SI/HI. PMHX: HIV, BPH, HTN PSYCH:DENIES Exam Limitations: No Limitations - Ebola screening Have you traveled outside of the country in the last 21 days: No Have you had contact with anyone from an Ebola affected area: No Have you been sick,other than usual withdrawal symptoms: No Do you have a fever: No - Review of Systems Constitutional: Changes in sleep EENT: reports: No Symptoms Reported Respiratory: reports: No Symptoms reported Cardiac: reports: No Symptoms Reported GI: reports: No Symptoms Reported : reports: Frequency Musculoskeletal: reports: No Symptoms Reported Integumentary: reports: No Symptoms Reported Neuro: reports: No Symptoms reported Endocrine: reports: No Symptoms Reported Hematology: reports: No Symptoms Reported Psychiatric: reports: No Sypmtoms Reported Other Systems: Reviewed and Negative Patient History - Patient Medical History Hx Anemia: Yes Hx Asthma: No Hx Chronic Obstructive Pulmonary Disease (COPD): No Hx Cancer: No Hx Cardiac Disorders: No Hx Congestive Heart Failure: No Hx Hypertension: Yes Hx Hypercholesterolemia: No Hx Pacemaker: No HX Cerebrovascular Accident: No Hx Seizures: No Hx Dementia: No Hx Diabetes: No Hx Gastrointestinal Disorders: No Hx Liver Disease: Yes (HX/O HEPC) Hx Genitourinary Disorders: No Hx Renal Disease (ESRD): No Hx Thyroid Disease: No Hx Human Immunodeficiency Virus (HIV): Yes (TRIUMEQ) Hx Hepatitis C: Yes (treated w/ zepatier x 12 wks) Hx Depression: No Hx Suicide Attempt: No Hx Bipolar Disorder: No Hx Schizophrenia: No Other Medical History: DENIES - Patient Surgical History Past Surgical History: No Anesthesia Reaction: No - PPD History Previous Implant?: Yes Documented Results: Negative w/proof Implanted On Prior R Admission?: Yes Date: 07/02/16 Results: 0MM PPD to be Administered?: Yes - Smoking Cessation Smoking history: Former smoker Have you smoked in the past 12 months: No Aproximately how many cigarettes per day: 0 If you are a former smoker, when did you quit?: 6 YEARS AGO Cigars Per Day: 0 Hx Chewing Tobacco Use: No Initiated information on smoking cessation: No 'Breaking Loose' booklet given: 10/15/17 - Substance & Tx. History Hx Alcohol Use: No Hx Substance Use: Yes Substance Use Type: Heroin Hx Substance Use Treatment: Yes ([facility]) - Substances Abused HEROIN Route: Inhalation Frequency: 1-2 times per week Amount used: 1 BAG Age of first use: 21 Date of Last Use: 09/14/17 Family Disease History - Family Disease History Family Disease History: Diabetes: Brother (d. DC, age 67), Heart Disease: Mother (CKD on HD, pacemaker), Brother, Other: Grandparent (MGM - d. CKD), Mother, Sister (multiple sclerosis), Daughter (lupus) Admission Physical Exam [facility] - Vital Signs Vital Signs: Vital Signs - 24 hr 10/15/17 17:55 Temperature 97.4 F L Pulse Rate 80 Respiratory 18 Rate Blood Pressure 149/93 - Physical General Appearance: Yes: No Apparent Distress, Appropriately Dressed HEENTM: Yes: Normocephalic, Normal Voice, VARSHA, Pharynx Normal, Other (MISSING TEETH) Respiratory: Yes: Chest Non-Tender, Lungs Clear, Normal Breath Sounds, No Respiratory Distress, No Accessory Muscle Use Neck: Yes: No masses,lesions,Nodules, Supple, Trachea in good position Breast: Yes: Breast Exam Deferred Cardiology: Yes: Regular Rhythm, Regular Rate, S1, S2 Abdominal: Yes: Normal Bowel Sounds, Non Tender, Soft, Protuberent Genitourinary: Yes: Within Normal Limits Back: Yes: Normal Inspection Musculoskeletal: Yes: full range of Motion, Gait Steady Extremities: Yes: Normal Capillary Refill, Normal Range of Motion, Non-Tender Neurological: Yes: Fully Oriented, Alert, Motor Strength 5/5 Integumentary: Yes: Normal Color, Dry, Warm Lymphatic: Yes: Within Normal Limits - Diagnostic (1) Uncomplicated opioid dependence Current Visit: Yes Status: Chronic (2) BPH (benign prostatic hyperplasia) Current Visit: Yes Status: Chronic (3) HIV (human immunodeficiency virus infection) Current Visit: Yes Status: Chronic (4) Hypertension Current Visit: Yes Status: Chronic Qualifiers: Hypertension type: essential hypertension Qualified Code(s): I10 - Essential (primary) hypertension Cleared for Admission [facility] - Detox or Rehab Detox Regimen/Protocol: Not Applicable Claeared for Rehab Admission: Yes [facility] Breath Alcohol Content Breath Alcohol Content: 0 Urine Drug Screen - Results Drug Screen Negative: Yes Inpatient Rehab Admission - Initial Determination Are CD services needed?: Yes Free of communicable disease: Yes Not in need of hospitalization: Yes - Rehab Admission Criteria Previous failed treatment: Yes Poor recovery environment: Yes Comorbidities: Yes Lacks judgement: Yes Patient is meeting Inpatient Rehab admission criteria:: Yes
[2017-10-15] MEDS ORDERED: MAGNESIUM HYDROX 2400MG/30ML ORAL SUSPENSION 30 ML CUP PO PRN (20:59)
[2017-10-15] MEDS ORDERED: hydrOXYzine PAMOATE 50 MG CAPSULE (FP) PO PRN (20:59)
[2017-10-15] MEDS ORDERED: IBUPROFEN 400 MG TABLET (FP) PO PRN (20:59)
[2017-10-15] MEDS ORDERED: MAGNESIUM CITRATE 300 ML BOTTLE PO PRN (20:59)
[2017-10-15] MEDS ORDERED: guaiFENesin/D-METHORPHAN HB 10 ML UNIT-DOSE CUPS PO PRN (20:59)
[2017-10-15] MEDS ORDERED: LOPERAMIDE HCL 2 MG CAPSULE PO PRN (20:59)
[2017-10-15] MEDS ORDERED: P-EPHED 60MG/TRIPROLIDI 2.5MG TABLET PO PRN (20:59)
[2017-10-15] MEDS ORDERED: MAG HYDROX/AL HYDROX/SIMETH 30 ML UNIT-DOSE CUP PO PRN (20:59)
[2017-10-15] MEDS ORDERED: MELATONIN 5 MG TABLETS PO PRN (22:00)
[2017-10-16] MEDS ORDERED: TUBERCULIN PPD 5 TU/0.1ML VIAL ID ONE (01:49)
[2017-10-16] MEDS: TAMSULOSIN HCL 0.4 MG CAP.ER.24H (FP) PO SCH ×3 (08:52→21:13)
[2017-10-16] MEDS: THIAMINE HCL 100 MG TABLET (FP) PO SCH ×2 (08:52→21:13)
[2017-10-16 10:07] LABS: HEMATOCRIT 37.5 % (35.4-49); HEMOGLOBIN 12.2 GM/dL (11.7-16.9); MCH 29.3 pg (25.7-33.7); MCHC 32.4 g/dl (32.0-35.9); MEAN CELL VOLUME 90.5 fl (80-96); MEAN PLT VOLUME 10.6 fl (7.5-11.1); PLATELET COUNT 78 K/MM3 (134-434); RBC 4.14 M/mm3 (4.00-5.60); RDW 14.8 % (11.9-15.9); WHITE BLOOD COUNT 5.9 K/mm3 (4.0-10.0)
[2017-10-16] MEDS: PRENATAL VITAMINS W/ FOLIC ACID TABLET (FP) PO SCH (10:08)
[2017-10-16] MEDS: ASPIRIN COATED 81 MG TABLET.EC PO SCH (10:08)
[2017-10-16 10:27] LABS: CHLORIDE 104 mmol/L (98-107); POTASSIUM 3.4 mmol/L (3.5-5.1); SODIUM 141 mmol/L (136-145)
[2017-10-16 10:53] LABS: ALBUMIN 3.9 g/dl (3.4-5.0); ALK PHOS 129 U/L (45-117); ANION GAP 11 (8-16); BILIRUBIN,TOTAL 0.4 mg/dL (0.2-1.0); BLOOD UREA NITROGEN 38 mg/dL (7-18); CALCIUM 8.7 mg/dL (8.5-10.1); CO2 26 mmol/L (21-32); CREATININE 2.4 mg/dL (0.7-1.3); GLUCOSE,RANDOM 96 mg/dL (74-106); SGOT/AST 27 U/L (15-37); SGPT/ALT 24 U/L (12-78); TOT PROT 7.7 g/dl (6.4-8.2)
[2017-10-16] MEDS: ABACAVIR/DOLUTEGRAVIR/LAMIVUDI (TRIUMEQ) TABLET -NF PO SCH (14:10)
[2017-10-16] MEDS: PATIENT'S OWN MEDICATION (NON-FORMULARY) (Valsartan/Hydrochlorothiazide [Valsartan-Hctz 16 PO SCH (14:11)
[2017-10-17] MEDS: TAMSULOSIN HCL 0.4 MG CAP.ER.24H (FP) PO SCH ×2 (09:55→21:17)
[2017-10-17] MEDS: PRENATAL VITAMINS W/ FOLIC ACID TABLET (FP) PO SCH (09:55)
[2017-10-17] MEDS: ASPIRIN COATED 81 MG TABLET.EC PO SCH (09:55)
[2017-10-17] MEDS: ABACAVIR/DOLUTEGRAVIR/LAMIVUDI (TRIUMEQ) TABLET -NF PO SCH (09:55)
[2017-10-17] MEDS: PATIENT'S OWN MEDICATION (NON-FORMULARY) (Valsartan/Hydrochlorothiazide [Valsartan-Hctz 16 PO SCH (09:56)
[2017-10-17] MEDS: THIAMINE HCL 100 MG TABLET (FP) PO SCH (21:17)
[2017-10-18] MEDS: PRENATAL VITAMINS W/ FOLIC ACID TABLET (FP) PO SCH (09:44)
[2017-10-18] MEDS: ASPIRIN COATED 81 MG TABLET.EC PO SCH (09:44)
[2017-10-18] MEDS: TAMSULOSIN HCL 0.4 MG CAP.ER.24H (FP) PO SCH ×2 (09:44→21:23)
[2017-10-18] MEDS: ABACAVIR/DOLUTEGRAVIR/LAMIVUDI (TRIUMEQ) TABLET -NF PO SCH (09:44)
[2017-10-18] MEDS: PATIENT'S OWN MEDICATION (NON-FORMULARY) (Valsartan/Hydrochlorothiazide [Valsartan-Hctz 16 PO SCH (09:46)
[2017-10-18] MEDS: THIAMINE HCL 100 MG TABLET (FP) PO SCH (21:23)
--- NOTE | 2017-10-18 22:47 | EKG ---
Test Reason : Blood Pressure : / mmHG Vent. Rate : 080 BPM Atrial Rate : 080 BPM P-R Int : 262 ms QRS Dur : 080 ms QT Int : 398 ms P-R-T Axes : 066 052 026 degrees QTc Int : 459 ms SINUS RHYTHM WITH 1ST DEGREE A-V BLOCK NONSPECIFIC T WAVE ABNORMALITY ABNORMAL ECG WHEN COMPARED WITH ECG OF 02-SEP-2016 09:59, PREMATURE VENTRICULAR COMPLEXES ARE NO LONGER PRESENT AL INTERVAL HAS INCREASED Confirmed by INGRID MARQUEZ MD ([id number]) on 10/18/2017 10:47:09 PM Referred By: Confirmed By:INGRID MARQUEZ MD
[2017-10-19] MEDS: TAMSULOSIN HCL 0.4 MG CAP.ER.24H (FP) PO SCH ×2 (10:00→21:30)
[2017-10-19] MEDS: ASPIRIN COATED 81 MG TABLET.EC PO SCH (10:00)
[2017-10-19] MEDS: PRENATAL VITAMINS W/ FOLIC ACID TABLET (FP) PO SCH (10:00)
[2017-10-19] MEDS: ABACAVIR/DOLUTEGRAVIR/LAMIVUDI (TRIUMEQ) TABLET -NF PO SCH (10:01)
[2017-10-19] MEDS: PATIENT'S OWN MEDICATION (NON-FORMULARY) (Valsartan/Hydrochlorothiazide [Valsartan-Hctz 16 PO SCH (10:01)
[2017-10-19] MEDS: THIAMINE HCL 100 MG TABLET (FP) PO SCH (21:30)
[2017-10-20] MEDS: ASPIRIN COATED 81 MG TABLET.EC PO SCH (10:13)
[2017-10-20] MEDS: PATIENT'S OWN MEDICATION (NON-FORMULARY) (Valsartan/Hydrochlorothiazide [Valsartan-Hctz 16 PO SCH (10:13)
[2017-10-20] MEDS: ABACAVIR/DOLUTEGRAVIR/LAMIVUDI (TRIUMEQ) TABLET -NF PO SCH (10:13)
[2017-10-20] MEDS: PRENATAL VITAMINS W/ FOLIC ACID TABLET (FP) PO SCH (10:13)
[2017-10-20] MEDS: TAMSULOSIN HCL 0.4 MG CAP.ER.24H (FP) PO SCH ×2 (10:13→21:23)
[2017-10-20] MEDS: THIAMINE HCL 100 MG TABLET (FP) PO SCH (21:23)
[2017-10-21] MEDS: PRENATAL VITAMINS W/ FOLIC ACID TABLET (FP) PO SCH (10:13)
[2017-10-21] MEDS: ASPIRIN COATED 81 MG TABLET.EC PO SCH (10:13)
[2017-10-21] MEDS: TAMSULOSIN HCL 0.4 MG CAP.ER.24H (FP) PO SCH ×2 (10:13→21:13)
[2017-10-21] MEDS: ABACAVIR/DOLUTEGRAVIR/LAMIVUDI (TRIUMEQ) TABLET -NF PO SCH (10:14)
[2017-10-21] MEDS: PATIENT'S OWN MEDICATION (NON-FORMULARY) (Valsartan/Hydrochlorothiazide [Valsartan-Hctz 16 PO SCH (10:39)
--- NOTE | 2017-10-21 11:45 | HP ---
Psychiatrist Admission - Data Date of interview: 10/21/17 Admission source: [facility] Identifying data: Patient is a 62 year old single male, father of five, unemployed (collecting SSI), and living with mother. This is patient's first admission to rehab. Patient admitted to for heroin dependence. Medical History: HIV, Anemia, hypertension, Hep C (treated) Psychiatric History: Pt. denies h/o psychiatric hospitalizations, outpatient care, and suicide attempt. Physical/Sexual Abuse/Trauma History: Denies. Vital Signs: Vital Signs - 24 hr 10/21/17 10/21/17 10/21/17 00:30 03:30 06:39 Temperature 98.0 F Pulse Rate 78 Respiratory 18 18 18 Rate Blood Pressure 131/89 Allergies/Adverse Reactions: Allergies Allergy/AdvReac Type Severity Reaction Status Date / Time No Known Allergies Allergy Verified 10/15/17 19:20 Date of last physical exam: 10/15/17 Concur with the findings of this exam: Yes - Substance Abuse/Tx History Hx Alcohol Use: No Hx Substance Use: Yes (Heroin- one bag daily. ) Substance Use Type: Heroin Hx Substance Use Treatment: Yes Mental Status Exam - Mental Status Exam Alert and Oriented to: Time, Place, Person Cognitive Function: Good Patient Appearance: Well Groomed Mood: Hopeful Affect: Mood Congruent Patient Behavior: Appropriate, Cooperative Speech Pattern: Clear, Appropriate Voice Loudness: Normal Thought Process: Intact, Goal Oriented Thought Disorder: Not Present Hallucinations: Denies Suicidal Ideation: Denies Homicidal Ideation: Denies Insight/Judgement: Poor Sleep: Well Appetite: Good Muscle strength/Tone: Normal Gait/Station: Normal Psychiatric Findings - Problem List ([place] 1, 2,3) (1) Uncomplicated opioid dependence Current Visit: Yes Status: Chronic - Initial Treatment Plan Initial Treatment Plan: Psychoeducation provided. Detoxification in [facility].
[2017-10-21] MEDS ORDERED: COLLOIDAL OATMEAL 1 BAR EACH TP PRN (13:22)
[2017-10-21] MEDS: THIAMINE HCL 100 MG TABLET (FP) PO SCH (21:13)
[2017-10-21] MEDS: MINERAL OIL/PETROLAT/WATER TOPICAL CREAM 113 GM JAR TP SCH (21:14)
--- NOTE | 2017-10-22 09:48 | PN ---
[facility] Progress Note Note: Laboratory Last Values WBC 5.9 K/mm3 (4.0-10.0) 10/16/17 07:30 RBC 4.14 M/mm3 (4.00-5.60) 10/16/17 07:30 Hgb 12.2 GM/dL (11.7-16.9) 10/16/17 07:30 Hct 37.5 % (35.4-49) 10/16/17 07:30 MCV 90.5 fl (80-96) 10/16/17 07:30 MCH 29.3 pg (25.7-33.7) 10/16/17 07:30 MCHC 32.4 g/dl (32.0-35.9) 10/16/17 07:30 RDW 14.8 % (11.9-15.9) 10/16/17 07:30 Plt Count 78 K/MM3 (134-434) L 10/16/17 07:30 MPV 10.6 fl (7.5-11.1) 10/16/17 07:30 Sodium 141 mmol/L (136-145) 10/16/17 07:30 Potassium 3.4 mmol/L (3.5-5.1) L 10/16/17 07:30 Chloride 104 mmol/L (98-107) 10/16/17 07:30 Carbon Dioxide 26 mmol/L (21-32) 10/16/17 07:30 Anion Gap 11 (8-16) 10/16/17 07:30 BUN 38 mg/dL (7-18) H D 10/16/17 07:30 Creatinine 2.4 mg/dL (0.7-1.3) H D 10/16/17 07:30 Creat Clearance w eGFR 27.48 (>60) 10/16/17 07:30 Random Glucose 96 mg/dL (74-106) 10/16/17 07:30 Calcium 8.7 mg/dL (8.5-10.1) 10/16/17 07:30 Total Bilirubin 0.4 mg/dL (0.2-1.0) D 10/16/17 07:30 AST 27 U/L (15-37) 10/16/17 07:30 ALT 24 U/L (12-78) 10/16/17 07:30 Alkaline Phosphatase 129 U/L (45-117) H 10/16/17 07:30 Total Protein 7.7 g/dl (6.4-8.2) 10/16/17 07:30 Albumin 3.9 g/dl (3.4-5.0) 10/16/17 07:30 RPR Titer Nonreactive (NONREACTIVE) 10/16/17 07:30 encourage oral fluid repeat cmp now
[2017-10-22] MEDS: TAMSULOSIN HCL 0.4 MG CAP.ER.24H (FP) PO SCH ×2 (10:05→21:31)
[2017-10-22] MEDS: ASPIRIN COATED 81 MG TABLET.EC PO SCH (10:05)
[2017-10-22] MEDS: ABACAVIR/DOLUTEGRAVIR/LAMIVUDI (TRIUMEQ) TABLET -NF PO SCH (10:05)
[2017-10-22] MEDS: PRENATAL VITAMINS W/ FOLIC ACID TABLET (FP) PO SCH (10:05)
[2017-10-22] MEDS: MINERAL OIL/PETROLAT/WATER TOPICAL CREAM 113 GM JAR TP SCH ×2 (10:07→21:31)
[2017-10-22] MEDS: PATIENT'S OWN MEDICATION (NON-FORMULARY) (Valsartan/Hydrochlorothiazide [Valsartan-Hctz 16 PO SCH (10:07)
[2017-10-22 15:15] LABS: CHLORIDE 105 mmol/L (98-107); POTASSIUM 4.3 mmol/L (3.5-5.1); SODIUM 141 mmol/L (136-145)
[2017-10-22 15:28] LABS: ALBUMIN 3.6 g/dl (3.4-5.0); ALK PHOS 122 U/L (45-117); ANION GAP 9 (8-16); BILIRUBIN,TOTAL 0.3 mg/dL (0.2-1.0); BLOOD UREA NITROGEN 25 mg/dL (7-18); CALCIUM 9.3 mg/dL (8.5-10.1); CO2 27 mmol/L (21-32); CREATININE 1.7 mg/dL (0.7-1.3); GLUCOSE,RANDOM 85 mg/dL (74-106); SGOT/AST 20 U/L (15-37); SGPT/ALT 25 U/L (12-78); TOT PROT 7.3 g/dl (6.4-8.2)
[2017-10-22] MEDS: THIAMINE HCL 100 MG TABLET (FP) PO SCH (21:31)
[2017-10-23] MEDS: ASPIRIN COATED 81 MG TABLET.EC PO SCH (10:05)
[2017-10-23] MEDS: PRENATAL VITAMINS W/ FOLIC ACID TABLET (FP) PO SCH (10:05)
[2017-10-23] MEDS: ABACAVIR/DOLUTEGRAVIR/LAMIVUDI (TRIUMEQ) TABLET -NF PO SCH (10:05)
[2017-10-23] MEDS: MINERAL OIL/PETROLAT/WATER TOPICAL CREAM 113 GM JAR TP SCH ×2 (10:05→21:22)
[2017-10-23] MEDS: TAMSULOSIN HCL 0.4 MG CAP.ER.24H (FP) PO SCH ×2 (10:05→21:21)
[2017-10-23] MEDS: PATIENT'S OWN MEDICATION (NON-FORMULARY) (Valsartan/Hydrochlorothiazide [Valsartan-Hctz 16 PO SCH (10:05)
--- NOTE | 2017-10-23 14:35 | PN ---
[facility] Progress Note Note: CMP results reviewed. BUN/Creatnine level improved but still elevated. Will repeat CMP in one week. Continue to monitor clinically. Laboratory Tests 10/16/17 10/16/17 10/16/17 07:30 07:30 07:30 WBC 5.9 RBC 4.14 Hgb 12.2 Hct 37.5 MCV 90.5 MCH 29.3 MCHC 32.4 RDW 14.8 Plt Count 78 L MPV 10.6 Sodium 141 Potassium 3.4 L Chloride 104 Carbon Dioxide 26 Anion Gap 11 BUN 38 H D Creatinine 2.4 H D Creat Clearance w eGFR 27.48 Random Glucose 96 Calcium 8.7 Total Bilirubin 0.4 D AST 27 ALT 24 Alkaline Phosphatase 129 H Total Protein 7.7 Albumin 3.9 RPR Titer Nonreactive 10/22/17 10:00 WBC RBC Hgb Hct MCV MCH MCHC RDW Plt Count MPV Sodium 141 Potassium 4.3 D Chloride 105 Carbon Dioxide 27 Anion Gap 9 BUN 25 H D Creatinine 1.7 H D Creat Clearance w eGFR 40.91 Random Glucose 85 Calcium 9.3 Total Bilirubin 0.3 D AST 20 D ALT 25 Alkaline Phosphatase 122 H Total Protein 7.3 Albumin 3.6 RPR Titer Vital Signs Temperature 97.9 F 10/23/17 06:59 Pulse Rate 80 10/23/17 06:59 Respiratory Rate 20 10/23/17 06:59 Blood Pressure 142/93 10/23/17 06:59 O2 Sat by Pulse Oximetry (%)
[2017-10-23] MEDS: THIAMINE HCL 100 MG TABLET (FP) PO SCH (21:21)
[2017-10-24] MEDS: TAMSULOSIN HCL 0.4 MG CAP.ER.24H (FP) PO SCH ×2 (10:12→21:17)
[2017-10-24] MEDS: ASPIRIN COATED 81 MG TABLET.EC PO SCH (10:12)
[2017-10-24] MEDS: ABACAVIR/DOLUTEGRAVIR/LAMIVUDI (TRIUMEQ) TABLET -NF PO SCH (10:13)
[2017-10-24] MEDS: PRENATAL VITAMINS W/ FOLIC ACID TABLET (FP) PO SCH (10:13)
[2017-10-24] MEDS: MINERAL OIL/PETROLAT/WATER TOPICAL CREAM 113 GM JAR TP SCH ×2 (10:13→21:18)
[2017-10-24] MEDS: PATIENT'S OWN MEDICATION (NON-FORMULARY) (Valsartan/Hydrochlorothiazide [Valsartan-Hctz 16 PO SCH (10:14)
[2017-10-24] MEDS: THIAMINE HCL 100 MG TABLET (FP) PO SCH (21:18)
[2017-10-25] MEDS: MINERAL OIL/PETROLAT/WATER TOPICAL CREAM 113 GM JAR TP SCH ×2 (10:01→21:19)
[2017-10-25] MEDS: ASPIRIN COATED 81 MG TABLET.EC PO SCH (10:01)
[2017-10-25] MEDS: TAMSULOSIN HCL 0.4 MG CAP.ER.24H (FP) PO SCH ×2 (10:01→21:19)
[2017-10-25] MEDS: PRENATAL VITAMINS W/ FOLIC ACID TABLET (FP) PO SCH (10:01)
[2017-10-25] MEDS: ABACAVIR/DOLUTEGRAVIR/LAMIVUDI (TRIUMEQ) TABLET -NF PO SCH (10:02)
[2017-10-25] MEDS: PATIENT'S OWN MEDICATION (NON-FORMULARY) (Valsartan/Hydrochlorothiazide [Valsartan-Hctz 16 PO SCH (10:02)
[2017-10-25] MEDS: THIAMINE HCL 100 MG TABLET (FP) PO SCH (21:19)
[2017-10-26] MEDS: TAMSULOSIN HCL 0.4 MG CAP.ER.24H (FP) PO SCH ×2 (10:04→21:28)
[2017-10-26] MEDS: PRENATAL VITAMINS W/ FOLIC ACID TABLET (FP) PO SCH (10:04)
[2017-10-26] MEDS: ASPIRIN COATED 81 MG TABLET.EC PO SCH (10:04)
[2017-10-26] MEDS: ABACAVIR/DOLUTEGRAVIR/LAMIVUDI (TRIUMEQ) TABLET -NF PO SCH (10:05)
[2017-10-26] MEDS: PATIENT'S OWN MEDICATION (NON-FORMULARY) (Valsartan/Hydrochlorothiazide [Valsartan-Hctz 16 PO SCH (10:05)
[2017-10-26] MEDS: MINERAL OIL/PETROLAT/WATER TOPICAL CREAM 113 GM JAR TP SCH ×2 (10:06→21:29)
[2017-10-26] MEDS: THIAMINE HCL 100 MG TABLET (FP) PO SCH (21:28)
[2017-10-27] MEDS: HYDROCHLOROTHIAZIDE 12.5 MG CAPSULE (FP) PO SCH (10:06)
[2017-10-27] MEDS: ASPIRIN COATED 81 MG TABLET.EC PO SCH (10:06)
[2017-10-27] MEDS: VALSARTAN 160 MG TABLET (UD) PO SCH (10:06)
[2017-10-27] MEDS: ABACAVIR/DOLUTEGRAVIR/LAMIVUDI (TRIUMEQ) TABLET -NF PO SCH (10:06)
[2017-10-27] MEDS: TAMSULOSIN HCL 0.4 MG CAP.ER.24H (FP) PO SCH ×2 (10:06→21:22)
[2017-10-27] MEDS: PRENATAL VITAMINS W/ FOLIC ACID TABLET (FP) PO SCH (10:06)
[2017-10-27] MEDS: MINERAL OIL/PETROLAT/WATER TOPICAL CREAM 113 GM JAR TP SCH ×2 (10:08→21:22)
[2017-10-27] MEDS: THIAMINE HCL 100 MG TABLET (FP) PO SCH (21:22)
[2017-10-28] MEDS: TAMSULOSIN HCL 0.4 MG CAP.ER.24H (FP) PO SCH ×2 (10:10→21:13)
[2017-10-28] MEDS: VALSARTAN 160 MG TABLET (UD) PO SCH (10:11)
[2017-10-28] MEDS: MINERAL OIL/PETROLAT/WATER TOPICAL CREAM 113 GM JAR TP SCH ×2 (10:11→21:13)
[2017-10-28] MEDS: ASPIRIN COATED 81 MG TABLET.EC PO SCH (10:11)
[2017-10-28] MEDS: PRENATAL VITAMINS W/ FOLIC ACID TABLET (FP) PO SCH (10:11)
[2017-10-28] MEDS: HYDROCHLOROTHIAZIDE 12.5 MG CAPSULE (FP) PO SCH (10:11)
[2017-10-28 10:23] LABS: CHLORIDE 106 mmol/L (98-107); POTASSIUM 4.2 mmol/L (3.5-5.1); SODIUM 142 mmol/L (136-145)
[2017-10-28] MEDS: ABACAVIR/DOLUTEGRAVIR/LAMIVUDI (TRIUMEQ) TABLET -NF PO SCH ×2 (11:00→11:14)
[2017-10-28 11:26] LABS: ALBUMIN 3.6 g/dl (3.4-5.0); ALK PHOS 128 U/L (45-117); ANION GAP 9 (8-16); BILIRUBIN,TOTAL 0.5 mg/dL (0.2-1.0); BLOOD UREA NITROGEN 22 mg/dL (7-18); CALCIUM 9.2 mg/dL (8.5-10.1); CO2 27 mmol/L (21-32); CREATININE 1.6 mg/dL (0.7-1.3); GLUCOSE,RANDOM 85 mg/dL (74-106); SGOT/AST 24 U/L (15-37); SGPT/ALT 29 U/L (12-78); TOT PROT 7.4 g/dl (6.4-8.2)
--- NOTE | 2017-10-28 14:41 | PN ---
[facility] COWS - Scale Resting Pulse: 0= NC 80 or Below Sweatin= No chills or Flushing Restless Observation: 0= Sits Still Pupil Size: 0= Normal to Room Light Bone or Joint Aches: 0= None Runny Nose/ Eye Tearin= None GI Upset > 30mins: 0= None Tremor Observation of Outstretched Hands: 0= None Yawning Observation: 0= None Anxiety or Irritability: 1=Feels Anxious/Irritable [facility] Progress Note (SOAP) Subjective: I'm here because the court says I have to take the vivitrol or naltrexone - I don't want it but I have to take it. I don't have a drug problem. Objective: alert, oriented, lungs clear, no edema urine tox negative for all substances last time of heroin use 09/14/17 - used 1 bad by snorting Has been in [facility] rehab since 10/15/17 - prior to [facility]. Patient states he is court mandated to get naltrexone - he is willing to take it because the alternative is to go back to [facility]. He would rather not take the Vivitrol injection as is afraid of a 'needle in the butt'. CBCD WBC 5.9 K/mm3 (4.0-10.0) 10/16/17 07:30 RBC 4.14 M/mm3 (4.00-5.60) 10/16/17 07:30 Hgb 12.2 GM/dL (11.7-16.9) 10/16/17 07:30 Hct 37.5 % (35.4-49) 10/16/17 07:30 MCV 90.5 fl (80-96) 10/16/17 07:30 MCHC 32.4 g/dl (32.0-35.9) 10/16/17 07:30 RDW 14.8 % (11.9-15.9) 10/16/17 07:30 Plt Count 78 K/MM3 (134-434) L 10/16/17 07:30 MPV 10.6 fl (7.5-11.1) 10/16/17 07:30 CMP Sodium 142 mmol/L (136-145) 10/28/17 08:30 Potassium 4.2 mmol/L (3.5-5.1) 10/28/17 08:30 Chloride 106 mmol/L (98-107) 10/28/17 08:30 Carbon Dioxide 27 mmol/L (21-32) 10/28/17 08:30 Anion Gap 9 (8-16) 10/28/17 08:30 BUN 22 mg/dL (7-18) H 10/28/17 08:30 Creatinine 1.6 mg/dL (0.7-1.3) H 10/28/17 08:30 Creat Clearance w eGFR 43.87 (>60) 10/28/17 08:30 Calcium 9.2 mg/dL (8.5-10.1) 10/28/17 08:30 Total Bilirubin 0.5 mg/dL (0.2-1.0) D 10/28/17 08:30 AST 24 U/L (15-37) 10/28/17 08:30 ALT 29 U/L (12-78) 10/28/17 08:30 Alkaline Phosphatase 128 U/L (45-117) H 10/28/17 08:30 Total Protein 7.4 g/dl (6.4-8.2) 10/28/17 08:30 Albumin 3.6 g/dl (3.4-5.0) 10/28/17 08:30 Vital Signs Period Temp Pulse Resp BP Sys/Skinner Pulse Ox Last 24 Hr 98.0 F 80 18-18 137/84 Assessment: opiate abuse, in remission HIV thrombocytopenia renal insufficiency Plan: naltrexone 50mg po daily to f/u in [place] upon discharge cont HIV meds, BP meds fluids, hydration
--- NOTE | 2017-10-28 15:43 | PN ---
Psychiatric Progress Note Vital Signs: Vital Signs Period Temp Pulse Resp BP Sys/Skinner Pulse Ox Last 24 Hr 98.0 F 80 18-18 137/84 Date of Session: 10/28/17 Chief Complaint:: Patient is court mandated for Vivitrol treatment HPI: Opioid dependence . ROS: Significant for HIV+,HTN,Hepatitis C,Liver cirrhosis.Renal insufficiency. Current Medications: Active Medications Generic Name Dose Route Start Last Admin Trade Name Freq PRN Reason Stop Dose Admin Abacavir/Dolutegravir/Lamivudine 1 each 10/28/17 10:00 10/28/17 11:00 Triumeq (Non-Formulary) PO 1 each DAILY ALLAN Administration Acetaminophen 650 mg 10/15/17 20:59 Tylenol - PO Q4H PRN FEVER Al Hydroxide/Mg Hydroxide 30 ml 10/15/17 20:59 Mylanta Oral Suspension - PO Q6H PRN DYSPEPSIA Aspirin 81 mg 10/16/17 10:00 10/28/17 10:11 Ecotrin - PO 81 mg DAILY ALLAN Administration Colloidal Oatmeal 1 applic 10/21/17 13:22 10/28/17 10:13 Aveeno Soap - TP 1 applic DAILY PRN Administration HYGEINE Eucalyptus/Menthol/Phenol/Sorbitol 1 each 10/15/17 20:59 Cepastat Lozenge - MM Q4H PRN SORE THROAT Guaifenesin 10 ml 10/15/17 20:59 Robitussin Dm - PO Q6H PRN COUGH Hydrochlorothiazide 12.5 mg 10/27/17 10:00 10/28/17 10:11 Hctz - PO 12.5 mg DAILY ALLAN Administration Hydroxyzine Pamoate 50 mg 10/15/17 20:59 Vistaril - PO Q4H PRN AGITATION Loperamide HCl 4 mg 10/15/17 20:59 Imodium - PO Q6H PRN DIARRHEA Melatonin 5 mg 10/15/17 22:00 Melatonin PO HS PRN INSOMNIA Multi-Ingredient Lotion 1 applic 10/21/17 22:00 10/28/17 10:11 Eucerin (Small Jar) - TP Not Given BID ALLAN Naltrexone HCl 50 mg 10/29/17 10:00 Revia - PO DAILY ALLAN Multivit/Folic Acid/Iron 1 tab 10/16/17 10:00 10/28/17 10:11 Vitamins (Sjr) - PO 1 tab DAILY ALLAN Administration Pseudoephedrine/Triprolidine 1 combo 10/15/17 20:59 Actifed - PO TID PRN NASAL CONGESTION Tamsulosin HCl 0.4 mg 10/15/17 22:00 10/28/17 10:10 Flomax - PO 0.4 mg BID ALLAN Administration Thiamine HCl 100 mg 10/15/17 22:00 10/27/17 21:22 Vitamin B1 - PO 100 mg HS ALLAN Administration Valsartan 160 mg 10/27/17 10:00 10/28/17 10:11 Diovan - PO 160 mg DAILY ALLAN Administration Current Side Effect: No Lab tests ordered: No Lab tests reviewed: Yes Provider note:: Chart was revuewed,Attending admission notes appreciated.Patient was reevaluated regarding Vivitrol protocol which is Court mandated.Considering his medical history which is significant for liver( cirrhosis) and recent kidney disease as well as HIV+,HTN and abnormal labs(high Alcaline phosphatase,BUN,Creatinine) Naltrexone is not indicated to start at this time .patient needs medical consult for further treatment options. Total face to face time:: 35 Mental Status Exam - Mental Status Exam Alert and Oriented to: Time, Place, Person Cognitive Function: Grossly Intact Patient Appearance: Well Groomed Mood: Euthymic Affect: Appropriate, Mood Congruent Patient Behavior: Cooperative Speech Pattern: Clear Voice Loudness: Normal Thought Process: Goal Oriented Thought Disorder: Not Present Hallucinations: Denies Suicidal Ideation: Denies Homicidal Ideation: Denies Insight/Judgement: Good Sleep: Fair Appetite: Good Muscle strength/Tone: Normal Gait/Station: Normal Psychiatric Treatment Plan - Problem List (1) BPH (benign prostatic hyperplasia) Current Visit: Yes (2) HIV (human immunodeficiency virus infection) Current Visit: Yes (3) Hypertension Current Visit: Yes Qualifiers: Hypertension type: essential hypertension Qualified Code(s): I10 - Essential (primary) hypertension (4) Cirrhosis Current Visit: Yes
[2017-10-28] MEDS: THIAMINE HCL 100 MG TABLET (FP) PO SCH (21:13)
[2017-10-29] MEDS: PRENATAL VITAMINS W/ FOLIC ACID TABLET (FP) PO SCH (10:07)
[2017-10-29] MEDS: HYDROCHLOROTHIAZIDE 12.5 MG CAPSULE (FP) PO SCH (10:07)
[2017-10-29] MEDS: TAMSULOSIN HCL 0.4 MG CAP.ER.24H (FP) PO SCH ×2 (10:07→21:18)
[2017-10-29] MEDS: VALSARTAN 160 MG TABLET (UD) PO SCH (10:07)
[2017-10-29] MEDS: ASPIRIN COATED 81 MG TABLET.EC PO SCH (10:07)
[2017-10-29] MEDS: MINERAL OIL/PETROLAT/WATER TOPICAL CREAM 113 GM JAR TP SCH ×2 (10:07→21:18)
[2017-10-29] MEDS: ABACAVIR/DOLUTEGRAVIR/LAMIVUDI (TRIUMEQ) TABLET -NF PO SCH (10:10)
[2017-10-29] MEDS: NALTREXONE HCL 50 MG TABLET PO SCH (10:10)
[2017-10-29] MEDS: THIAMINE HCL 100 MG TABLET (FP) PO SCH (21:18)
[2017-10-30] MEDS: MINERAL OIL/PETROLAT/WATER TOPICAL CREAM 113 GM JAR TP SCH ×2 (10:12→21:27)
[2017-10-30] MEDS: PRENATAL VITAMINS W/ FOLIC ACID TABLET (FP) PO SCH (10:12)
[2017-10-30] MEDS: HYDROCHLOROTHIAZIDE 12.5 MG CAPSULE (FP) PO SCH (10:12)
[2017-10-30] MEDS: TAMSULOSIN HCL 0.4 MG CAP.ER.24H (FP) PO SCH ×2 (10:12→21:27)
[2017-10-30] MEDS: ASPIRIN COATED 81 MG TABLET.EC PO SCH (10:12)
[2017-10-30] MEDS: VALSARTAN 160 MG TABLET (UD) PO SCH (10:12)
[2017-10-30] MEDS: NALTREXONE HCL 50 MG TABLET PO SCH (10:13)
[2017-10-30] MEDS: ABACAVIR/DOLUTEGRAVIR/LAMIVUDI (TRIUMEQ) TABLET -NF PO SCH (12:18)
[2017-10-30] MEDS: THIAMINE HCL 100 MG TABLET (FP) PO SCH (21:27)
[2017-10-31] MEDS: ABACAVIR/DOLUTEGRAVIR/LAMIVUDI (TRIUMEQ) TABLET -NF PO SCH (10:05)
[2017-10-31] MEDS: NALTREXONE HCL 50 MG TABLET PO SCH (10:06)
[2017-10-31] MEDS: HYDROCHLOROTHIAZIDE 12.5 MG CAPSULE (FP) PO SCH (10:06)
[2017-10-31] MEDS: ASPIRIN COATED 81 MG TABLET.EC PO SCH (10:06)
[2017-10-31] MEDS: PRENATAL VITAMINS W/ FOLIC ACID TABLET (FP) PO SCH (10:06)
[2017-10-31] MEDS: TAMSULOSIN HCL 0.4 MG CAP.ER.24H (FP) PO SCH ×2 (10:06→21:35)
[2017-10-31] MEDS: VALSARTAN 160 MG TABLET (UD) PO SCH (10:06)
[2017-10-31] MEDS: MINERAL OIL/PETROLAT/WATER TOPICAL CREAM 113 GM JAR TP SCH ×2 (10:07→21:36)
[2017-10-31] MEDS: THIAMINE HCL 100 MG TABLET (FP) PO SCH (21:35)
[2017-11-01] MEDS: TAMSULOSIN HCL 0.4 MG CAP.ER.24H (FP) PO SCH ×2 (10:17→21:24)
[2017-11-01] MEDS: HYDROCHLOROTHIAZIDE 12.5 MG CAPSULE (FP) PO SCH (10:17)
[2017-11-01] MEDS: VALSARTAN 160 MG TABLET (UD) PO SCH (10:17)
[2017-11-01] MEDS: ABACAVIR/DOLUTEGRAVIR/LAMIVUDI (TRIUMEQ) TABLET -NF PO SCH (10:17)
[2017-11-01] MEDS: ASPIRIN COATED 81 MG TABLET.EC PO SCH (10:17)
[2017-11-01] MEDS: MINERAL OIL/PETROLAT/WATER TOPICAL CREAM 113 GM JAR TP SCH ×2 (10:18→21:25)
[2017-11-01] MEDS: NALTREXONE HCL 50 MG TABLET PO SCH (10:18)
[2017-11-01] MEDS: PRENATAL VITAMINS W/ FOLIC ACID TABLET (FP) PO SCH (10:18)
[2017-11-01] MEDS: THIAMINE HCL 100 MG TABLET (FP) PO SCH (21:24)
[2017-11-02] MEDS: PRENATAL VITAMINS W/ FOLIC ACID TABLET (FP) PO SCH (10:26)
[2017-11-02] MEDS: ABACAVIR/DOLUTEGRAVIR/LAMIVUDI (TRIUMEQ) TABLET -NF PO SCH (10:26)
[2017-11-02] MEDS: VALSARTAN 160 MG TABLET (UD) PO SCH (10:27)
[2017-11-02] MEDS: MINERAL OIL/PETROLAT/WATER TOPICAL CREAM 113 GM JAR TP SCH ×2 (10:27→21:24)
[2017-11-02] MEDS: NALTREXONE HCL 50 MG TABLET PO SCH (10:27)
[2017-11-02] MEDS: TAMSULOSIN HCL 0.4 MG CAP.ER.24H (FP) PO SCH ×2 (10:27→21:24)
[2017-11-02] MEDS: HYDROCHLOROTHIAZIDE 12.5 MG CAPSULE (FP) PO SCH (10:27)
[2017-11-02] MEDS: ASPIRIN COATED 81 MG TABLET.EC PO SCH (10:27)
[2017-11-02] MEDS: THIAMINE HCL 100 MG TABLET (FP) PO SCH (21:24)
[2017-11-03] MEDS: ACETAMINOPHEN 325 MG TABLET (FP) PO PRN ×2 (02:07→06:59)
[2017-11-03] MEDS: VALSARTAN 160 MG TABLET (UD) PO SCH (10:40)
[2017-11-03] MEDS: PRENATAL VITAMINS W/ FOLIC ACID TABLET (FP) PO SCH (10:40)
[2017-11-03] MEDS: TAMSULOSIN HCL 0.4 MG CAP.ER.24H (FP) PO SCH ×2 (10:40→21:26)
[2017-11-03] MEDS: ABACAVIR/DOLUTEGRAVIR/LAMIVUDI (TRIUMEQ) TABLET -NF PO SCH (10:40)
[2017-11-03] MEDS: HYDROCHLOROTHIAZIDE 12.5 MG CAPSULE (FP) PO SCH (10:40)
[2017-11-03] MEDS: ASPIRIN COATED 81 MG TABLET.EC PO SCH (10:40)
[2017-11-03] MEDS: NALTREXONE HCL 50 MG TABLET PO SCH (10:41)
[2017-11-03] MEDS: MINERAL OIL/PETROLAT/WATER TOPICAL CREAM 113 GM JAR TP SCH ×2 (10:41→21:26)
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
[2017-11-03] MEDS: METHYL SALICYLATE/MENTHOL OINT 30 GM TUBE TP SCH (16:14)
[2017-11-03] MEDS: THIAMINE HCL 100 MG TABLET (FP) PO SCH (21:26)
[2017-11-03] MEDS: IBUPROFEN 400 MG TABLET (FP) PO PRN (21:28)
[2017-11-04] MEDS: PRENATAL VITAMINS W/ FOLIC ACID TABLET (FP) PO SCH (10:47)
[2017-11-04] MEDS: HYDROCHLOROTHIAZIDE 12.5 MG CAPSULE (FP) PO SCH (10:47)
[2017-11-04] MEDS: TAMSULOSIN HCL 0.4 MG CAP.ER.24H (FP) PO SCH ×2 (10:47→21:19)
[2017-11-04] MEDS: ABACAVIR/DOLUTEGRAVIR/LAMIVUDI (TRIUMEQ) TABLET -NF PO SCH (10:47)
[2017-11-04] MEDS: VALSARTAN 160 MG TABLET (UD) PO SCH (10:48)
[2017-11-04] MEDS: IBUPROFEN 400 MG TABLET (FP) PO PRN ×2 (10:48→21:19)
[2017-11-04] MEDS: ASPIRIN COATED 81 MG TABLET.EC PO SCH (10:48)
[2017-11-04] MEDS: METHYL SALICYLATE/MENTHOL OINT 30 GM TUBE TP SCH (10:48)
[2017-11-04] MEDS: MINERAL OIL/PETROLAT/WATER TOPICAL CREAM 113 GM JAR TP SCH ×2 (10:48→21:19)
[2017-11-04] MEDS: NALTREXONE HCL 50 MG TABLET PO SCH (12:41)
[2017-11-04] MEDS: THIAMINE HCL 100 MG TABLET (FP) PO SCH (21:19)
[2017-11-05] MEDS: TAMSULOSIN HCL 0.4 MG CAP.ER.24H (FP) PO SCH ×2 (10:20→22:12)
[2017-11-05] MEDS: ABACAVIR/DOLUTEGRAVIR/LAMIVUDI (TRIUMEQ) TABLET -NF PO SCH (10:20)
[2017-11-05] MEDS: ASPIRIN COATED 81 MG TABLET.EC PO SCH (10:20)
[2017-11-05] MEDS: PRENATAL VITAMINS W/ FOLIC ACID TABLET (FP) PO SCH (10:20)
[2017-11-05] MEDS: HYDROCHLOROTHIAZIDE 12.5 MG CAPSULE (FP) PO SCH (10:20)
[2017-11-05] MEDS: VALSARTAN 160 MG TABLET (UD) PO SCH (10:20)
[2017-11-05] MEDS: METHYL SALICYLATE/MENTHOL OINT 30 GM TUBE TP SCH (10:21)
[2017-11-05] MEDS: NALTREXONE HCL 50 MG TABLET PO SCH (10:22)
[2017-11-05] MEDS: MINERAL OIL/PETROLAT/WATER TOPICAL CREAM 113 GM JAR TP SCH ×2 (10:22→22:11)
[2017-11-05] MEDS: IBUPROFEN 400 MG TABLET (FP) PO PRN ×2 (11:06→19:55)
[2017-11-05] MEDS: THIAMINE HCL 100 MG TABLET (FP) PO SCH (22:12)
[2017-11-06] MEDS: IBUPROFEN 400 MG TABLET (FP) PO PRN ×2 (06:09→20:04)
[2017-11-06] MEDS: PRENATAL VITAMINS W/ FOLIC ACID TABLET (FP) PO SCH (10:11)
[2017-11-06] MEDS: HYDROCHLOROTHIAZIDE 12.5 MG CAPSULE (FP) PO SCH (10:11)
[2017-11-06] MEDS: MINERAL OIL/PETROLAT/WATER TOPICAL CREAM 113 GM JAR TP SCH ×2 (10:11→21:34)
[2017-11-06] MEDS: METHYL SALICYLATE/MENTHOL OINT 30 GM TUBE TP SCH (10:11)
[2017-11-06] MEDS: ASPIRIN COATED 81 MG TABLET.EC PO SCH (10:11)
[2017-11-06] MEDS: TAMSULOSIN HCL 0.4 MG CAP.ER.24H (FP) PO SCH ×2 (10:11→21:34)
[2017-11-06] MEDS: NALTREXONE HCL 50 MG TABLET PO SCH (10:11)
[2017-11-06] MEDS: VALSARTAN 160 MG TABLET (UD) PO SCH (10:11)
[2017-11-06] MEDS: ABACAVIR/DOLUTEGRAVIR/LAMIVUDI (TRIUMEQ) TABLET -NF PO SCH (10:14)
--- NOTE | 2017-11-06 15:21 | PN ---
S Progress Note Note: TC from Billy Duarte RN - patient does not wish to take naltrexone and asking for it to be discontinued. Same done.
[2017-11-06] MEDS: MENTHOL/PHENOL 1 EACH UD MM PRN (21:34)
[2017-11-06] MEDS: THIAMINE HCL 100 MG TABLET (FP) PO SCH (21:34)
[2017-11-07] MEDS: IBUPROFEN 400 MG TABLET (FP) PO PRN ×2 (05:59→13:19)
[2017-11-07] MEDS: MENTHOL/PHENOL 1 EACH UD MM PRN ×2 (06:00→20:41)
[2017-11-07] MEDS: TAMSULOSIN HCL 0.4 MG CAP.ER.24H (FP) PO SCH ×2 (10:14→21:14)
[2017-11-07] MEDS: ASPIRIN COATED 81 MG TABLET.EC PO SCH (10:14)
[2017-11-07] MEDS: VALSARTAN 160 MG TABLET (UD) PO SCH (10:14)
[2017-11-07] MEDS: METHYL SALICYLATE/MENTHOL OINT 30 GM TUBE TP SCH (10:14)
[2017-11-07] MEDS: PRENATAL VITAMINS W/ FOLIC ACID TABLET (FP) PO SCH (10:14)
[2017-11-07] MEDS: MINERAL OIL/PETROLAT/WATER TOPICAL CREAM 113 GM JAR TP SCH ×2 (10:15→21:14)
[2017-11-07] MEDS: ABACAVIR/DOLUTEGRAVIR/LAMIVUDI (TRIUMEQ) TABLET -NF PO SCH (10:16)
[2017-11-07] MEDS: HYDROCHLOROTHIAZIDE 12.5 MG CAPSULE (FP) PO SCH (10:18)
[2017-11-07] MEDS: IBUPROFEN 600 MG TABLET (FP) PO PRN (20:40)
[2017-11-07] MEDS: THIAMINE HCL 100 MG TABLET (FP) PO SCH (21:14)
[2017-11-08] MEDS: MENTHOL/PHENOL 1 EACH UD MM PRN ×3 (02:20→17:06)
[2017-11-08] MEDS: IBUPROFEN 600 MG TABLET (FP) PO PRN (03:41)
[2017-11-08] MEDS: ACETAMINOPHEN 325 MG TABLET (FP) PO PRN (08:47)
[2017-11-08] MEDS: VALSARTAN 160 MG TABLET (UD) PO SCH (10:19)
[2017-11-08] MEDS: TAMSULOSIN HCL 0.4 MG CAP.ER.24H (FP) PO SCH (10:19)
[2017-11-08] MEDS: HYDROCHLOROTHIAZIDE 12.5 MG CAPSULE (FP) PO SCH (10:19)
[2017-11-08] MEDS: PRENATAL VITAMINS W/ FOLIC ACID TABLET (FP) PO SCH (10:19)
[2017-11-08] MEDS: MINERAL OIL/PETROLAT/WATER TOPICAL CREAM 113 GM JAR TP SCH (10:20)
[2017-11-08] MEDS: ASPIRIN COATED 81 MG TABLET.EC PO SCH (10:20)
[2017-11-08] MEDS: ABACAVIR/DOLUTEGRAVIR/LAMIVUDI (TRIUMEQ) TABLET -NF PO SCH (10:20)
[2017-11-08] MEDS: METHYL SALICYLATE/MENTHOL OINT 30 GM TUBE TP SCH (10:20)
[2017-11-08] MEDS ORDERED: CEPHALEXIN MONOHYDRATE 500 MG CAPSULE (UD) PO ONE (14:04)
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
[2017-11-08] MEDS: CEPHALEXIN MONOHYDRATE 500 MG CAPSULE (UD) PO SCH (17:05)
[2017-11-09] MEDS: MINERAL OIL/PETROLAT/WATER TOPICAL CREAM 113 GM JAR TP SCH ×3 (00:23→21:19)
[2017-11-09] MEDS: TAMSULOSIN HCL 0.4 MG CAP.ER.24H (FP) PO SCH ×3 (00:23→21:18)
[2017-11-09] MEDS: THIAMINE HCL 100 MG TABLET (FP) PO SCH ×2 (00:24→21:18)
[2017-11-09] MEDS: CEPHALEXIN MONOHYDRATE 500 MG CAPSULE (UD) PO SCH ×5 (02:25→23:46)
[2017-11-09] MEDS: IBUPROFEN 600 MG TABLET (FP) PO PRN ×2 (06:14→14:21)
[2017-11-09] MEDS: MENTHOL/PHENOL 1 EACH UD MM PRN ×3 (06:16→23:47)
[2017-11-09] MEDS: METHYL SALICYLATE/MENTHOL OINT 30 GM TUBE TP SCH (10:01)
[2017-11-09] MEDS: HYDROCHLOROTHIAZIDE 12.5 MG CAPSULE (FP) PO SCH (10:01)
[2017-11-09] MEDS: PRENATAL VITAMINS W/ FOLIC ACID TABLET (FP) PO SCH (10:01)
[2017-11-09] MEDS: VALSARTAN 160 MG TABLET (UD) PO SCH (10:01)
[2017-11-09] MEDS: ABACAVIR/DOLUTEGRAVIR/LAMIVUDI (TRIUMEQ) TABLET -NF PO SCH (10:01)
[2017-11-09] MEDS: ASPIRIN COATED 81 MG TABLET.EC PO SCH (10:03)
[2017-11-09] MEDS: ACETAMINOPHEN 325 MG TABLET (FP) PO PRN (17:07)
[2017-11-09] MEDS: IBUPROFEN 400 MG TABLET (FP) PO PRN (21:18)
[2017-11-10] MEDS: CEPHALEXIN MONOHYDRATE 500 MG CAPSULE (UD) PO SCH ×3 (06:11→23:49)
[2017-11-10] MEDS: IBUPROFEN 400 MG TABLET (FP) PO PRN (06:13)
[2017-11-10] MEDS: MENTHOL/PHENOL 1 EACH UD MM PRN (06:15)
[2017-11-10 06:40] VITALS: TEMP 99.5
[2017-11-10] MEDS: PRENATAL VITAMINS W/ FOLIC ACID TABLET (FP) PO SCH (09:57)
[2017-11-10] MEDS: ASPIRIN COATED 81 MG TABLET.EC PO SCH (09:57)
[2017-11-10] MEDS: TAMSULOSIN HCL 0.4 MG CAP.ER.24H (FP) PO SCH ×2 (09:57→23:48)
[2017-11-10] MEDS: HYDROCHLOROTHIAZIDE 12.5 MG CAPSULE (FP) PO SCH (09:57)
[2017-11-10] MEDS: VALSARTAN 160 MG TABLET (UD) PO SCH (09:57)
[2017-11-10] MEDS: ABACAVIR/DOLUTEGRAVIR/LAMIVUDI (TRIUMEQ) TABLET -NF PO SCH (09:57)
[2017-11-10] MEDS: MINERAL OIL/PETROLAT/WATER TOPICAL CREAM 113 GM JAR TP SCH ×2 (09:57→23:48)
[2017-11-10] MEDS: METHYL SALICYLATE/MENTHOL OINT 30 GM TUBE TP SCH (09:57)
--- NOTE | 2017-11-10 12:53 | PN ---
[facility] Progress Note Note: Patient c/o of worsening right hand swelling. Patient was evaluated by Dr. Yousif on 11/08/17 and treated with keflex. Today swelling has worsen and spread from the right hand on the right forearm. Vital Signs Temperature 99.5 F 11/10/17 06:39 Pulse Rate 83 11/10/17 06:39 Respiratory Rate 18 11/10/17 06:39 Blood Pressure 120/82 11/10/17 06:39 O2 Sat by Pulse Oximetry (%) Laboratory Last Values WBC 5.9 K/mm3 (4.0-10.0) 10/16/17 07:30 RBC 4.14 M/mm3 (4.00-5.60) 10/16/17 07:30 Hgb 12.2 GM/dL (11.7-16.9) 10/16/17 07:30 Hct 37.5 % (35.4-49) 10/16/17 07:30 MCV 90.5 fl (80-96) 10/16/17 07:30 MCH 29.3 pg (25.7-33.7) 10/16/17 07:30 MCHC 32.4 g/dl (32.0-35.9) 10/16/17 07:30 RDW 14.8 % (11.9-15.9) 10/16/17 07:30 Plt Count 78 K/MM3 (134-434) L 10/16/17 07:30 MPV 10.6 fl (7.5-11.1) 10/16/17 07:30 Sodium 142 mmol/L (136-145) 10/28/17 08:30 Potassium 4.2 mmol/L (3.5-5.1) 10/28/17 08:30 Chloride 106 mmol/L (98-107) 10/28/17 08:30 Carbon Dioxide 27 mmol/L (21-32) 10/28/17 08:30 Anion Gap 9 (8-16) 10/28/17 08:30 BUN 22 mg/dL (7-18) H 10/28/17 08:30 Creatinine 1.6 mg/dL (0.7-1.3) H 10/28/17 08:30 Creat Clearance w eGFR 43.87 (>60) 10/28/17 08:30 Random Glucose 85 mg/dL (74-106) 10/28/17 08:30 Calcium 9.2 mg/dL (8.5-10.1) 10/28/17 08:30 Total Bilirubin 0.5 mg/dL (0.2-1.0) D 10/28/17 08:30 AST 24 U/L (15-37) 10/28/17 08:30 ALT 29 U/L (12-78) 10/28/17 08:30 Alkaline Phosphatase 128 U/L (45-117) H 10/28/17 08:30 Total Protein 7.4 g/dl (6.4-8.2) 10/28/17 08:30 Albumin 3.6 g/dl (3.4-5.0) 10/28/17 08:30 RPR Titer Nonreactive (NONREACTIVE) 10/16/17 07:30 Patient AOx3, no distress s1 , s2, no JVD no adventitious breath sounds + right hand swelling spreading on to the right forearm, skin intact warm to touch Plan: Patient sent via [facility] to [facility], [place] for further evaluation. Patient endorsed to Dr. Larsen.
[2017-11-10 15:20] VITALS: BP 110/68; PULSE 86
[2017-11-10] MEDS: THIAMINE HCL 100 MG TABLET (FP) PO SCH (23:49)
[2017-11-11] MEDS: CEPHALEXIN MONOHYDRATE 500 MG CAPSULE (UD) PO SCH (04:59)
== END 2017-11-11 | disposition home or self-care (01) | DRG 772 ==
LOC: YASAS 14:24 → Y5N 19:41
PROVIDERS: ADMIT Psychiatry & Neurology Psychiatry; ATTEND Psychiatry & Neurology Psychiatry
PROC: HZ42ZZZ Group Counseling for Substance Abuse Treatment, Cognitive-Behavioral (ICD-10-PCS; principal; 2017-10-15)
DX: F11.20 Opioid dependence, uncomplicated (principal); Z21 Asymptomatic human immunodeficiency virus [HIV] infection status; I10 Essential (primary) hypertension; K74.60 Unspecified cirrhosis of liver; N40.0 Benign prostatic hyperplasia without lower urinary tract symptoms; B18.2 Chronic viral hepatitis C; D64.9 Anemia, unspecified; S69.81XD Other specified injuries of right wrist, hand and finger(s), subsequent encounter; M79.641 Pain in right hand; X58.XXXD Exposure to other specified factors, subsequent encounter
CPT/HCPCS: 36415; 73110-TC-RT-FY; 73130-TC-RT-FY; 80053; 85027; 86593; 93005; 93010

== ENCOUNTER 2018-04-26 10:44 | Inpatient (IN) | payer OTHER ==
[2018-04-26 11:10] VITALS: BMI 27.4
--- NOTE | 2018-04-26 12:24 | HP ---
CIWA Score - Admission Criteria OASAS Guidelines: Admission for Medically Managed Detox: Requires at least one of the followin. CIWA greater than 12 2. Seizures within the past 24 hours 3. Delirium tremens within the past 24 hours 4. Hallucinations within the past 24 hours 5. Acute intervention needed for co occurring medical disorder 6. Acute intervention needed for co occurring psychiatric disorder 7. Severe withdrawal that cannot be handled at a lower level of care (continued vomiting, continued diarrhea, abnormal vital signs) requiring intravenous medication and/or fluids 8. Admission ROS [facility] - HPI Allergies/Adverse Reactions: Allergies Allergy/AdvReac Type Severity Reaction Status Date / Time No Known Allergies Allergy Verified 04/26/18 12:00 - Ebola screening Have you traveled outside of the country in the last 21 days: No Have you had contact with anyone from an Ebola affected area: No Have you been sick,other than usual withdrawal symptoms: No Patient History - Patient Medical History Hx Anemia: Yes Hx Asthma: No Hx Chronic Obstructive Pulmonary Disease (COPD): No Hx Cancer: No Hx Cardiac Disorders: No Hx Congestive Heart Failure: No Hx Hypertension: Yes Hx Hypercholesterolemia: No Hx Pacemaker: No HX Cerebrovascular Accident: No Hx Seizures: No Hx Dementia: No Hx Diabetes: No Hx Gastrointestinal Disorders: Yes (acid reflux) Hx Liver Disease: Yes (HX/O HEPC) Hx Genitourinary Disorders: No Hx Sexually Transmitted Disorders: Yes (gonorrhea at age 27) Hx Renal Disease (ESRD): No Hx Thyroid Disease: No Hx Human Immunodeficiency Virus (HIV): Yes (TRIUMEQ) Hx Hepatitis C: Yes Hx Depression: No Hx Suicide Attempt: No Hx Bipolar Disorder: No Hx Schizophrenia: No - Patient Surgical History Past Surgical History: No Hx Neurologic Surgery: No Hx Cataract Extraction: No Hx Cardiac Surgery: No Hx Lung Surgery: No Hx Breast Surgery: No Hx Breast Biopsy: No Hx Abdominal Surgery: No Hx Appendectomy: No Hx Cholecystectomy: No Hx Genitourinary Surgery: No Hx Section: No Hx Orthopedic Surgery: No Anesthesia Reaction: No - PPD History Previous Implant?: Yes Documented Results: Negative w/proof Implanted On Prior R Admission?: Yes Date: 04/22/18 Results: 0 mm - Smoking Cessation Smoking history: Former smoker Have you smoked in the past 12 months: No Aproximately how many cigarettes per day: 0 If you are a former smoker, when did you quit?: 2010 Cigars Per Day: 0 Hx Chewing Tobacco Use: No Initiated information on smoking cessation: No - Substances Abused Heroin Route: Inhalation Frequency: Daily Amount used: 2-3 bags Age of first use: 21 Date of Last Use: 04/25/18 Family Disease History - Family Disease History Family Disease History: Diabetes: Brother (agustina APONTE, age 67), Heart Disease: Mother (CKD on HD, pacemaker), Brother, Other: Grandparent (MGM - d. CKD), Father (decd age 76 yrs cause unk), Mother, Sister (multiple sclerosis), Son ( 3 sons a&w), Daughter (lupus) Admission Physical Exam [facility] - Vital Signs Vital Signs: Vital Signs - 24 hr 04/26/18 11:07 Temperature 96.5 F L Pulse Rate 83 Respiratory 20 Rate Blood Pressure 147/97 Screened but not Admitted - Documentation of Visit Screened but not Admitted: Yes Left Prior to Completion of Assessment: Yes Additional Information/Explanation: this 63 years old male with heroin dependence,sseking detox,form heroin. bp 147/97,p83,r20,t96.5. izzy 0,000. during waitng for evaluation and treatment and admission,. patient changed his mind,did not want to come in for detox,. left [facility] in good and stable condition, left [facility] in good and stable condition [facility] Breath Alcohol Content Breath Alcohol Content: 0 Urine Drug Screen - Results Drug Screen Negative: No Urine Drug Screen Results: OPI-Opiates, MTD-Methadone, OXY-Oxycodone
--- NOTE | 2018-04-26 16:49 | HP ---
COWS - Scale Resting Pulse: 1= [place] 81-100 Sweatin=Flushed/Facial Moisture Restless Observation: 1= Difficult to Sit Still Pupil Size: 1= Pupils >than Normal Bone or Joint Aches: 0= None Runny Nose/ Eye Tearin= Runny Nose/Eyes GI Upset > 30mins: 2= Nausea/Diarrhea (Diarrhea) Tremor Observation: 4= Gross Tremor/Twitching Yawning Observation: 0= None Anxiety or Irritability: 0= None Goose Flesh Skin: 0=Smooth Skin COWS Score: 13 CIWA Score - Admission Criteria OASAS Guidelines: Admission for Medically Managed Detox: Requires at least one of the followin. CIWA greater than 12 2. Seizures within the past 24 hours 3. Delirium tremens within the past 24 hours 4. Hallucinations within the past 24 hours 5. Acute intervention needed for co occurring medical disorder 6. Acute intervention needed for co occurring psychiatric disorder 7. Severe withdrawal that cannot be handled at a lower level of care (continued vomiting, continued diarrhea, abnormal vital signs) requiring intravenous medication and/or fluids 8. Admission ROS [facility] Chief Complaint: Here for heroin withdrawal. Allergies/Adverse Reactions: Allergies Allergy/AdvReac Type Severity Reaction Status Date / Time No Known Allergies Allergy Verified 04/26/18 12:00 History of Present Illness: States here for heroin detox. Denies methadone program. States took street methadone 4 days ago. Heroin use since age 21. Hx. [facility] x 15 months - left 2017 (withdrew while incarcerated) States not currently interested in MAT at this time. Denies hx seizures, blackouts or overdoses. Hx: HTN, Acid reflux, low platelets and HIV(+): States compliant w/ medications PDMP - negative Exam Limitations: No Limitations - Ebola screening Have you traveled outside of the country in the last 21 days: No Have you had contact with anyone from an Ebola affected area: No Have you been sick,other than usual withdrawal symptoms: No - Review of Systems Constitutional: Diaphoresis, Changes in sleep (Difficulty falling asleep) EENT: reports: Nose Congestion Respiratory: reports: No Symptoms reported Cardiac: reports: No Symptoms Reported GI: reports: Diarrhea (Diarrhea now, but ususally constipated), Indigestion ( Acid reflux) : reports: Other (No problems now because on Flomax) Musculoskeletal: reports: No Symptoms Reported Integumentary: reports: No Symptoms Reported Neuro: reports: No Symptoms reported Endocrine: reports: No Symptoms Reported Hematology: reports: Easy Bruising (Bruising when bumps into things. States low platelets.), Other (HIV (+)) Psychiatric: reports: Mood/Affect Appropiate, Orientated x3, Depressed Patient History - Patient Medical History Hx Anemia: Yes (unknown - years ago ) Hx Asthma: No Hx Chronic Obstructive Pulmonary Disease (COPD): No Hx Cancer: No Hx Cardiac Disorders: No Hx Congestive Heart Failure: No Hx Hypertension: Yes Hx Hypercholesterolemia: No Hx Pacemaker: No HX Cerebrovascular Accident: No Hx Seizures: No Hx Dementia: No Hx Diabetes: No Hx Gastrointestinal Disorders: Yes (acid reflux) Hx Liver Disease: Yes (HX/O HEPC) Hx Genitourinary Disorders: No Hx Sexually Transmitted Disorders: Yes (gonorrhea at age 27) Hx Renal Disease (ESRD): No Hx Thyroid Disease: No Hx Human Immunodeficiency Virus (HIV): Yes (TRIUMEQ) Hx Hepatitis C: Yes (Tx'd) Hx Depression: No Hx Suicide Attempt: No Hx Bipolar Disorder: No Hx Schizophrenia: No - Patient Surgical History Past Surgical History: No Hx Neurologic Surgery: No Hx Cataract Extraction: No Hx Cardiac Surgery: No Hx Lung Surgery: No Hx Breast Surgery: No Hx Breast Biopsy: No Hx Abdominal Surgery: No Hx Appendectomy: No Hx Cholecystectomy: No Hx Genitourinary Surgery: No Hx Section: No Hx Orthopedic Surgery: No Anesthesia Reaction: No - PPD History Previous Implant?: Yes Documented Results: Negative w/o proof Implanted On Prior R Admission?: Yes Date: 04/22/18 Results: 0 mm PPD to be Administered?: Yes - Smoking Cessation Smoking history: Former smoker Have you smoked in the past 12 months: No Aproximately how many cigarettes per day: 0 If you are a former smoker, when did you quit?: 2010 Cigars Per Day: 0 Hx Chewing Tobacco Use: No Initiated information on smoking cessation: No - Substance & Tx. History Hx Alcohol Use: No Hx Substance Use: Yes Substance Use Type: Heroin Hx Substance Use Treatment: Yes (rehab, past use [facility]) - Substances Abused Heroin Route: Inhalation Frequency: Daily Amount used: 2-3 bags Age of first use: 21 Date of Last Use: 04/25/18 Family Disease History - Family Disease History Family Disease History: Diabetes: Brother (agustina APONTE, age 67), Heart Disease: Mother (CKD on HD, pacemaker), Brother, Other: Grandparent (MGM - d. CKD), Father (dec'd age 76 yrs cause unk), Mother, Sister (multiple sclerosis), Son ( 3 sons a&w), Daughter (lupus) Admission Physical Exam [facility] - Vital Signs Vital Signs: Vital Signs - 24 hr 04/26/18 11:07 Temperature 96.5 F L Pulse Rate 83 Respiratory 20 Rate Blood Pressure 147/97 - Physical General Appearance: Yes: Mild Distress, Tremorous HEENTM: Yes: EOMI, Hearing grossly Normal, VARSHA (Pupils = 2 mm), Pharynx Normal , Tm's normal Respiratory: Yes: Lungs Clear, Normal Breath Sounds, No Respiratory Distress Neck: Yes: No masses,lesions,Nodules, Supple Breast: Yes: Breast Exam Deferred Cardiology: Yes: Regular Rhythm, Regular Rate, S1, S2 Abdominal: Yes: Non Tender, Soft, Increased Bowel Sounds Genitourinary: Yes: Within Normal Limits Back: Yes: Normal Inspection Musculoskeletal: Yes: full range of Motion, Gait Steady Extremities: Yes: Normal Capillary Refill, Normal Range of Motion, Non-Tender, Tremors (Tremors of hands when arms extended) 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 NML intact, Fully Oriented, Alert, Motor Strength 5/5 Integumentary: Yes: Normal Color, Dry (Decreased skin turgor), Warm, Other (Taut , thickened, leathery skin toes to below knees.) Lymphatic: Yes: Within Normal Limits - Diagnostic (1) Opioid dependence with withdrawal Current Visit: Yes Status: Acute (2) Dehydration Current Visit: Yes Status: Acute (3) BPH (benign prostatic hyperplasia) Current Visit: Yes Status: Chronic Qualifiers: Lower urinary tract symptom presence: unspecified whether lower urinary tract symptoms present Qualified Code(s): N40.0 - Benign prostatic hyperplasia without lower urinary tract symptoms Comment: cont meds and f/u as per urolology. (4) HIV (human immunodeficiency virus infection) Current Visit: Yes Status: Chronic Comment: Patient brought in current medications (5) Hypertension Current Visit: Yes Status: Chronic Qualifiers: Hypertension type: essential hypertension Qualified Code(s): I10 - Essential (primary) hypertension Cleared for Admission [facility] - Detox or Rehab [facility] Level of Care: Medically Managed Detox Regimen/Protocol: Methadone [facility] Breath Alcohol Content Breath Alcohol Content: 0 Urine Drug Screen - Results Drug Screen Negative: No Urine Drug Screen Results: OPI-Opiates, MTD-Methadone, OXY-Oxycodone
[2018-04-26] MEDS ORDERED: ACETAMINOPHEN 325 MG TABLET (FP) PO PRN (18:41)
[2018-04-26] MEDS ORDERED: MAG HYDROX/AL HYDROX/SIMETH 30 ML UNIT-DOSE CUP PO PRN (18:41)
[2018-04-26] MEDS ORDERED: IBUPROFEN 400 MG TABLET (FP) PO PRN (18:41)
[2018-04-26] MEDS ORDERED: LOPERAMIDE HCL 2 MG CAPSULE PO PRN (18:41)
[2018-04-26] MEDS ORDERED: MENTHOL/PHENOL 1 EACH UD MM PRN (18:41)
[2018-04-26] MEDS ORDERED: MAGNESIUM HYDROX 2400MG/30ML ORAL SUSPENSION 30 ML CUP PO PRN (18:41)
[2018-04-26] MEDS ORDERED: MAGNESIUM CITRATE 300 ML BOTTLE PO PRN (18:41)
[2018-04-26] MEDS ORDERED: MELATONIN 5 MG TABLETS PO PRN (22:00)
[2018-04-26] MEDS: TAMSULOSIN HCL 0.4 MG CAP PO SCH (22:21)
[2018-04-26] MEDS: BISACODYL 5 MG TABLET.DR (FP) PO SCH ×2 (22:22→23:49)
[2018-04-26] MEDS: THIAMINE HCL 100 MG TABLET (FP) PO SCH (22:25)
[2018-04-26] MEDS ORDERED: METHADONE HCL 10 MG TABLET (FOR DETOX USE ONLY) PO ONE (23:00)
[2018-04-27 00:57] LABS: URINE APPEARANCE CLEAR; URINE BILIRUBIN NEGATIVE (<2.0 mg/dL); URINE COLOR LTYELLOW; URINE GLUCOSE (UA) NEGATIVE (NEGATIVE); URINE KETONE NEGATIVE (NEGATIVE); URINE LEUK ESTERASE NEGATIVE (NEGATIVE); URINE NITRITE NEGATIVE (NEGATIVE); URINE PROTEIN NEGATIVE (NEGATIVE); URINE UROBILINOGEN NEGATIVE mg/dL (0.2-1.0)
[2018-04-27] MEDS ORDERED: PATIENT'S OWN MEDICATION (NON-FORMULARY) (Valsartan/Hydrochlorothiazide [Valsartan-Hctz 16 PO SCH (10:00)
[2018-04-27] MEDS ORDERED: PATIENT'S OWN MEDICATION (NON-FORMULARY) (Omeprazole 20 MG) PO SCH (10:00)
[2018-04-27] MEDS ORDERED: FOLIC ACID 1 MG TABLET (FP) PO SCH (10:00)
[2018-04-27] MEDS ORDERED: METHADONE HCL 10 MG TABLET (FOR DETOX USE ONLY) PO ONE (10:00)
[2018-04-27] MEDS: PATIENT'S OWN MEDICATION (NON-FORMULARY) (Abacavir/Dolutegravir/Lamivudi [Triumeq 600-50-3 PO SCH (10:22)
[2018-04-27] MEDS: ASPIRIN COATED 81 MG TABLET.EC PO SCH (10:23)
[2018-04-27] MEDS: HYDROCHLOROTHIAZIDE 12.5 MG CAPSULE (FP) PO SCH (10:23)
[2018-04-27] MEDS: PANTOPRAZOLE 20 MG TABLET (FP) PO SCH (10:23)
[2018-04-27] MEDS: TAMSULOSIN HCL 0.4 MG CAP PO SCH ×2 (10:23→22:12)
[2018-04-27] MEDS: PRENATAL VITAMINS W/ FOLIC ACID TABLET (FP) PO SCH (10:23)
[2018-04-27 10:59] LABS: ALBUMIN 3.3 g/dl (3.4-5.0); ALK PHOS 93 U/L (45-117); ANION GAP 7 MMOL/L (8-16); BILIRUBIN,TOTAL 0.4 mg/dL (0.2-1); BLOOD UREA NITROGEN 30 mg/dL (7-18); CALCIUM 8.5 mg/dL (8.5-10.1); CHLORIDE 104 mmol/L (98-107); CO2 28 mmol/L (21-32); CREATININE 1.6 mg/dL (0.55-1.3); GLUCOSE,RANDOM 91 mg/dL (74-106); POTASSIUM 3.7 mmol/L (3.5-5.1); SGOT/AST 24 U/L (15-37); SGPT/ALT 20 U/L (13-61); SODIUM 139 mmol/L (136-145); TOT PROT 6.6 g/dl (6.4-8.2)
[2018-04-27 11:01] LABS: HEMATOCRIT 39.4 % (35.4-49); HEMOGLOBIN 12.5 GM/dL (11.7-16.9); MCH 28.5 pg (25.7-33.7); MCHC 31.8 g/dl (32.0-35.9); MEAN CELL VOLUME 89.7 fl (80-96); MEAN PLT VOLUME 10.7 fl (7.5-11.1); PLATELET COUNT 90 K/MM3 (134-434); RDW 14.9 % (11.9-15.9)
[2018-04-27] MEDS: MINERAL OIL/PETROLAT/WATER TOPICAL CREAM 113 GM JAR TP SCH (11:18)
[2018-04-27] MEDS: VALSARTAN 160 MG TABLET (UD) PO SCH (11:45)
--- NOTE | 2018-04-27 12:44 | PN ---
[facility] COWS - Scale Resting Pulse: 0= [place] 80 or Below Sweatin= Chills/Flushing Restless Observation: 0= Sits Still Pupil Size: 1= Pupils >than Normal Bone or Joint Aches: 2= Severe Diffuse Aches Runny Nose/ Eye Tearin= Nasal Congestion GI Upset > 30mins: 1= Stomach Cramp Tremor Observation of Outstretched Hands: 1= Tremor Hope, Not Seen Yawning Observation: 2= >3x During Session Anxiety or Irritability: 2=Irritable/Anxious Goose Flesh Skin: 0=Smooth Skin COWS Score: 11 S Progress Note (SOAP) Subjective: trouble sleep at night tremor body aches joints pain sweat Objective: 04/27/18 12:43 Vital Signs Temperature 98.3 F 04/27/18 09:35 Pulse Rate 99 H 04/27/18 09:35 Respiratory Rate 18 04/27/18 09:35 Blood Pressure 120/77 04/27/18 09:35 O2 Sat by Pulse Oximetry (%) Laboratory Last Values WBC 4.0 K/mm3 (4.0-10.0) 04/27/18 07:00 RBC 4.40 M/mm3 (4.00-5.60) 04/27/18 07:00 Hgb 12.5 GM/dL (11.7-16.9) 04/27/18 07:00 Hct 39.4 % (35.4-49) 04/27/18 07:00 MCV 89.7 fl (80-96) 04/27/18 07:00 MCH 28.5 pg (25.7-33.7) 04/27/18 07:00 MCHC 31.8 g/dl (32.0-35.9) L 04/27/18 07:00 RDW 14.9 % (11.9-15.9) 04/27/18 07:00 Plt Count 90 K/MM3 (134-434) L 04/27/18 07:00 MPV 10.7 fl (7.5-11.1) 04/27/18 07:00 Sodium 139 mmol/L (136-145) 04/27/18 07:00 Potassium 3.7 mmol/L (3.5-5.1) 04/27/18 07:00 Chloride 104 mmol/L (98-107) 04/27/18 07:00 Carbon Dioxide 28 mmol/L (21-32) 04/27/18 07:00 Anion Gap 7 MMOL/L (8-16) L 04/27/18 07:00 BUN 30 mg/dL (7-18) H 04/27/18 07:00 Creatinine 1.6 mg/dL (0.55-1.3) H 04/27/18 07:00 Creat Clearance w eGFR 43.74 (>60) 04/27/18 07:00 Random Glucose 91 mg/dL (74-106) 04/27/18 07:00 Calcium 8.5 mg/dL (8.5-10.1) 04/27/18 07:00 Total Bilirubin 0.4 mg/dL (0.2-1) 04/27/18 07:00 AST 24 U/L (15-37) 04/27/18 07:00 ALT 20 U/L (13-61) 04/27/18 07:00 Alkaline Phosphatase 93 U/L (45-117) 04/27/18 07:00 Total Protein 6.6 g/dl (6.4-8.2) 04/27/18 07:00 Albumin 3.3 g/dl (3.4-5.0) L 04/27/18 07:00 Urine Color Ltyellow 04/26/18 23:38 Urine Appearance Clear 04/26/18 23:38 Urine pH 5.0 (5.0-8.0) 04/26/18 23:38 Ur Specific Reader 1.020 (1.010-1.035) 04/26/18 23:38 Urine Protein Negative (NEGATIVE) 04/26/18 23:38 Urine Glucose (UA) Negative (NEGATIVE) 04/26/18 23:38 Urine Ketones Negative (NEGATIVE) 04/26/18 23:38 Urine Blood Negative (NEGATIVE) 04/26/18 23:38 Urine Nitrite Negative (NEGATIVE) 04/26/18 23:38 Urine Bilirubin Negative (<2.0 mg/dL) 04/26/18 23:38 Urine Urobilinogen Negative mg/dL (0.2-1.0) 04/26/18 23:38 Ur Leukocyte Esterase Negative (NEGATIVE) 04/26/18 23:38 RPR Titer Nonreactive (NONREACTIVE) 04/27/18 07:00 lab noted discontinue motrim Assessment: 04/27/18 12:45 withdrawal sx low platelle Plan: continue detox
[2018-04-27] MEDS: THIAMINE HCL 100 MG TABLET (FP) PO SCH (22:12)
[2018-04-27] MEDS: BISACODYL 5 MG TABLET.DR (FP) PO SCH (22:12)
[2018-04-27] MEDS: diazePAM 5 MG TABLET PO PRN (22:12)
[2018-04-28] MEDS: diazePAM 5 MG TABLET PO PRN ×2 (05:25→09:31)
[2018-04-28 09:30] VITALS: BP 154/99; PULSE 73; TEMP 98.5
[2018-04-28] MEDS: VALSARTAN 160 MG TABLET (UD) PO SCH (09:31)
[2018-04-28] MEDS: PATIENT'S OWN MEDICATION (NON-FORMULARY) (Abacavir/Dolutegravir/Lamivudi [Triumeq 600-50-3 PO SCH (09:31)
[2018-04-28] MEDS: ASPIRIN COATED 81 MG TABLET.EC PO SCH (09:31)
[2018-04-28] MEDS: TAMSULOSIN HCL 0.4 MG CAP PO SCH (09:31)
[2018-04-28] MEDS: PANTOPRAZOLE 20 MG TABLET (FP) PO SCH (09:31)
[2018-04-28] MEDS: PRENATAL VITAMINS W/ FOLIC ACID TABLET (FP) PO SCH (09:31)
[2018-04-28] MEDS: HYDROCHLOROTHIAZIDE 12.5 MG CAPSULE (FP) PO SCH (09:31)
[2018-04-28] MEDS: MINERAL OIL/PETROLAT/WATER TOPICAL CREAM 113 GM JAR TP SCH (09:32)
[2018-04-28] MEDS ORDERED: METHADONE HCL 5 MG TABLET (FOR DETOX USE ONLY) PO ONE (10:00)
[2018-04-28] MEDS ORDERED: LIDOCAINE 5% TOPICAL PATCH TP SCH (10:00)
--- NOTE | 2018-04-28 14:01 | DS ---
[facility] Detox Discharge Summary Admission Date: 04/26/18 Discharge Date: 04/28/18 - History Present History: Opioid Dependence Additional Comments: 63 years old male admitted on 04/26/18 for opiate withdrawal stability patient is ambivalent to opiate detox patient stated that he has 15 mg of methadone at home that he bought from the "street" [facility] "as long I give them clean urine" patient insists to leave the detox unit today discuss negative consequences of opiate addiction Pertinent Past History: encourage the patient to follow up with infectious disease specialist for medical mental and addiction issues - Physical Exam Results Vital Signs: Vital Signs Temperature 98.5 F 04/28/18 09:30 Pulse Rate 73 04/28/18 09:30 Respiratory Rate 18 04/28/18 09:30 Blood Pressure 154/99 04/28/18 09:30 O2 Sat by Pulse Oximetry (%) Pertinent Admission Physical Exam Findings: opiate withdrawal sx Vital Signs Temperature 98.5 F 04/28/18 09:30 Pulse Rate 73 04/28/18 09:30 Respiratory Rate 18 04/28/18 09:30 Blood Pressure 154/99 04/28/18 09:30 O2 Sat by Pulse Oximetry (%) Laboratory Last Values WBC 4.0 K/mm3 (4.0-10.0) 04/27/18 07:00 RBC 4.40 M/mm3 (4.00-5.60) 04/27/18 07:00 Hgb 12.5 GM/dL (11.7-16.9) 04/27/18 07:00 Hct 39.4 % (35.4-49) 04/27/18 07:00 MCV 89.7 fl (80-96) 04/27/18 07:00 MCH 28.5 pg (25.7-33.7) 04/27/18 07:00 MCHC 31.8 g/dl (32.0-35.9) L 04/27/18 07:00 RDW 14.9 % (11.9-15.9) 04/27/18 07:00 Plt Count 90 K/MM3 (134-434) L 04/27/18 07:00 MPV 10.7 fl (7.5-11.1) 04/27/18 07:00 Sodium 139 mmol/L (136-145) 04/27/18 07:00 Potassium 3.7 mmol/L (3.5-5.1) 04/27/18 07:00 Chloride 104 mmol/L (98-107) 04/27/18 07:00 Carbon Dioxide 28 mmol/L (21-32) 04/27/18 07:00 Anion Gap 7 MMOL/L (8-16) L 04/27/18 07:00 BUN 30 mg/dL (7-18) H 04/27/18 07:00 Creatinine 1.6 mg/dL (0.55-1.3) H 04/27/18 07:00 Creat Clearance w eGFR 43.74 (>60) 04/27/18 07:00 Random Glucose 91 mg/dL (74-106) 04/27/18 07:00 Calcium 8.5 mg/dL (8.5-10.1) 04/27/18 07:00 Total Bilirubin 0.4 mg/dL (0.2-1) 04/27/18 07:00 AST 24 U/L (15-37) 04/27/18 07:00 ALT 20 U/L (13-61) 04/27/18 07:00 Alkaline Phosphatase 93 U/L (45-117) 04/27/18 07:00 Total Protein 6.6 g/dl (6.4-8.2) 04/27/18 07:00 Albumin 3.3 g/dl (3.4-5.0) L 04/27/18 07:00 Urine Color Ltyellow 04/26/18 23:38 Urine Appearance Clear 04/26/18 23:38 Urine pH 5.0 (5.0-8.0) 04/26/18 23:38 Ur Specific [place] 1.020 (1.010-1.035) 04/26/18 23:38 Urine Protein Negative (NEGATIVE) 04/26/18 23:38 Urine Glucose (UA) Negative (NEGATIVE) 04/26/18 23:38 Urine Ketones Negative (NEGATIVE) 04/26/18 23:38 Urine Blood Negative (NEGATIVE) 04/26/18 23:38 Urine Nitrite Negative (NEGATIVE) 04/26/18 23:38 Urine Bilirubin Negative (<2.0 mg/dL) 04/26/18 23:38 Urine Urobilinogen Negative mg/dL (0.2-1.0) 04/26/18 23:38 Ur Leukocyte Esterase Negative (NEGATIVE) 04/26/18 23:38 RPR Titer Nonreactive (NONREACTIVE) 04/27/18 07:00 lab noted strong recommend the patient to bring in discharge lab results to [facility] or any follow up arrangement - Treatment Hospital Course: Detox Protocol Followed, Responded well Patient has Accepted a Rehab Referral to: community self help meeting and group - Medication Discharge Medications: Ambulatory Orders Abacavir/Dolutegravir/Lamivudi [Triumeq 600-50-300 mg Tablet] 1 each PO DAILY # 30 tablet 04/20/18 Aspirin [Aspirin EC] 81 mg PO DAILY #30 tablet. 04/20/18 Bisacodyl [Bisacodyl -] 1 tab PO HS #30 tablet. 04/20/18 Folic Acid - 1 mg PO DAILY #30 tablet 04/20/18 Tamsulosin HCl [Flomax] 0.4 mg PO BID #60 capsule 04/20/18 Valsartan/Hydrochlorothiazide [Valsartan-Hctz 160-12.5 mg Tab] 1 each PO DAILY # 30 tablet 04/20/18 Omeprazole 20 mg PO DAILY 04/26/18 - Diagnosis (1) Opioid dependence with withdrawal Status: Acute (2) BPH (benign prostatic hyperplasia) Status: Chronic Qualifiers: Lower urinary tract symptom presence: unspecified whether lower urinary tract symptoms present Qualified Code(s): N40.0 - Benign prostatic hyperplasia without lower urinary tract symptoms (3) HIV (human immunodeficiency virus infection) Status: Chronic (4) Hepatitis C Status: Chronic Qualifiers: Viral hepatitis chronicity: chronic Hepatic coma status: without hepatic coma Qualified Code(s): B18.2 - Chronic viral hepatitis C (5) Hypertension Status: Chronic Qualifiers: Hypertension type: essential hypertension Qualified Code(s): I10 - Essential (primary) hypertension - AMA Did Patient Leave Against Medical Advice: Yes
[2018-04-28] MEDS ORDERED: LIDOCAINE PATCH REMOVAL MC SCH (22:00)
[2018-04-29] MEDS ORDERED: METHADONE HCL 5 MG TABLET (FOR DETOX USE ONLY) PO ONE (10:00)
[2018-04-30] MEDS ORDERED: METHADONE HCL 10 MG TABLET (FOR DETOX USE ONLY) PO ONE (10:00)
[2018-05-01] MEDS ORDERED: METHADONE HCL 5 MG TABLET (FOR DETOX USE ONLY) PO ONE (06:00)
== END 2018-04-28 10:36 | disposition left against medical advice (07) | DRG 770 ==
LOC: YASAS 10:44 → Y3N 19:19
PROC: HZ2ZZZZ Detoxification Services for Substance Abuse Treatment (ICD-10-PCS; principal; 2018-04-26)
DX: F11.23 Opioid dependence with withdrawal (principal); Z21 Asymptomatic human immunodeficiency virus [HIV] infection status; D69.6 Thrombocytopenia, unspecified; I10 Essential (primary) hypertension; E86.0 Dehydration; K21.9 Gastro-esophageal reflux disease without esophagitis; N40.0 Benign prostatic hyperplasia without lower urinary tract symptoms; Z86.19 Personal history of other infectious and parasitic diseases
CPT/HCPCS: 36415; 80053; 81003; 85027; 86593

== ENCOUNTER 2020-08-26 14:11 | Inpatient (IN) | payer OTHER ==
[2020-08-26 14:16] VITALS: BMI 30.9
[2020-08-26 15:26] LABS: BASO % 0.4 % (0-2.0); EOS % 0.2 % (0-4.5); HEMATOCRIT 40.1 % (35.4-49); HEMOGLOBIN 13.2 GM/dL (11.7-16.9); LYMPH % 4.8 % (8-40); MCH 29.1 pg (25.7-33.7); MEAN CELL VOLUME 88.2 fl (80-96); MONO % 7.7 % (3.8-10.2); NEUT % 86.9 % (42.8-82.8); PLATELET COUNT 97 K/MM3 (134-434); RBC 4.54 M/mm3 (4.00-5.60); RDW 14.8 % (11.9-15.9); WHITE BLOOD COUNT 11.2 K/mm3 (4.0-10.0)
[2020-08-26 15:31] LABS: INR 1.18 (0.83-1.09); PROTHROMBIN TIME (PATIENT) 14.2 SEC (9.7-13.0)
[2020-08-26 15:34] LABS: ACTIVATED PTT 30.3 SECONDS (25.2-36.5)
[2020-08-26 15:38] LABS: CHLORIDE 97 mmol/L (98-107); SODIUM 132 mmol/L (136-145)
[2020-08-26 15:41] LABS: ALBUMIN 3.3 g/dl (3.4-5.0); ANION GAP 7 MMOL/L (8-16); BLOOD UREA NITROGEN 38.6 mg/dL (7-18); CALCIUM 8.9 mg/dL (8.5-10.1); CO2 29 mmol/L (21-32); GLUCOSE,RANDOM 113 mg/dL (74-106)
[2020-08-26 15:44] LABS: CREATININE 1.8 mg/dL (0.55-1.3); SGOT/AST 22 U/L (15-37); SGPT/ALT 22 U/L (13-61)
[2020-08-26 15:45] LABS: BILIRUBIN,TOTAL 0.4 mg/dL (0.2-1); TOT PROT 7.5 g/dl (6.4-8.2)
[2020-08-26 15:46] LABS: ALK PHOS 94 U/L (45-117)
[2020-08-26] MEDS ORDERED: LACTATED RINGERS SOLUTION 1000 ML INFUS.BAG IV ONE (16:14)
[2020-08-26] MEDS ORDERED: HEPARIN NA (PORCINE) 5,000 UNITS/ML 1ML VIAL IVPUSH PRN ×2 (19:17)
[2020-08-26] MEDS ORDERED: HEPARIN NA (PORCINE) 5,000 UNITS/ML 1ML VIAL IVPUSH ONE (19:17)
[2020-08-26] MEDS ORDERED: AZITHROMYCIN IVPB 500 MG in DEXTROSE 5%-WATER - 250 ML IVPB ONE (19:22)
[2020-08-26] MEDS ORDERED: CEFTRIAXONE 1,000 MG in DEXTROSE 5%-WATER - 50 ML IVPB ONE (19:37)
[2020-08-26] MEDS ORDERED: ACETAMINOPHEN 325 MG TABLET (FP) PO ONE (19:38)
[2020-08-26] MEDS ORDERED: CEFTRIAXONE 1 GM/50 ML BAG ONE (19:44)
[2020-08-26] MEDS ORDERED: ACETAMINOPHEN 325 MG TABLET (FP) ONE (19:44)
[2020-08-26] MEDS ORDERED: HEPARIN NA (PORCINE) 5,000 UNITS/ML 1ML VIAL ONE (20:04)
[2020-08-26] MEDS ORDERED: HEPARIN INFUSION - 25,000 UNITS/500 ML INFUS.BAG IVPB ONE (20:05)
[2020-08-26] MEDS ORDERED: AZITHROMYCIN IVPB 500 MG/250 ML BAG IVPB ONE (20:05)
[2020-08-26] MEDS: HEPARIN INFUSION - 25,000 UNITS/500 ML INFUS.BAG IVPB SCH (20:17)
[2020-08-26] MEDS ORDERED: amLODIPine BESYLATE 5 MG TABLET (FP) PO ONE (22:12)
[2020-08-26] MEDS ORDERED: BENZOCAINE/MENTH/CETYLPYRD CL 1 EACH LOZENGE MM PRN (22:27)
[2020-08-26] MEDS: LACTATED RINGERS SOLUTION 1,000 ML/1,000 ML INFUS.BAG IV SCH (22:32)
[2020-08-26 22:49] LABS: EPI CELLS 1 /uL (0-25.1); HYALINE CASTS 0 /uL (0-3.1); PH,URINE 7.5 (5.0-8.0); URINE APPEARANCE CLEAR; URINE BACTERIA 84 /uL (0-1359); URINE BILIRUBIN NEGATIVE (NEGATIVE); URINE COLOR YELLOW; URINE GLUCOSE (UA) NEGATIVE (NEGATIVE); URINE KETONE NEGATIVE (NEGATIVE); URINE LEUK ESTERASE NEGATIVE (NEGATIVE); URINE NITRITE NEGATIVE (NEGATIVE); URINE PROTEIN TRACE (NEGATIVE); URINE RBC 29 /uL (0-23.9); URINE UROBILINOGEN 0.2 mg/dL (0.2-1.0); URINE WBC 1 /uL (0-25.8)
[2020-08-26] MEDS ORDERED: amLODIPine BESYLATE 5 MG TABLET (FP) ONE (22:52)
[2020-08-26 22:54] LABS: COCAINE, UR NEGATIVE ng/ml (CUTOFF=300); URINE BENZODIAZEPINES NEGATIVE ng/ml (CUTOFF=200)
[2020-08-26 22:55] LABS: METHADONE, UR NEGATIVE ng/ml (CUTOFF=300); PHENCYCLIDINE,URINE NEGATIVE ng/ml (CUTOFF=25); URINE AMPHETAMINES NEGATIVE ng/ml (CUTOFF=500)
[2020-08-26 22:57] LABS: OPIATES, URI POSITIVE ng/ml (CUTOFF=300); URINE BARBITURATES NEGATIVE ng/ml (CUTOFF=200)
[2020-08-27] MEDS ORDERED: METHADONE HCL 10 MG TABLET ONE (05:44)
[2020-08-27] MEDS ORDERED: METHADONE HCL 10 MG TABLET PO ONE (06:00)
[2020-08-27] MEDS: LACTATED RINGERS SOLUTION 1,000 ML/1,000 ML INFUS.BAG IV SCH ×2 (06:53→21:00)
[2020-08-27 08:52] LABS: BASO % 0.5 % (0-2.0); EOS % 1.1 % (0-4.5); HEMATOCRIT 41.4 % (35.4-49); HEMOGLOBIN 13.6 GM/dL (11.7-16.9); LYMPH % 9.1 % (8-40); MCH 29.2 pg (25.7-33.7); MCHC 32.8 g/dl (32.0-35.9); MEAN CELL VOLUME 89.1 fl (80-96); MEAN PLT VOLUME 10.7 fl (7.5-11.1); MONO % 7.7 % (3.8-10.2); NEUT % 81.6 % (42.8-82.8); PLATELET COUNT 101 K/MM3 (134-434); RBC 4.65 M/mm3 (4.00-5.60); RDW 14.1 % (11.9-15.9); WHITE BLOOD COUNT 8.7 K/mm3 (4.0-10.0)
[2020-08-27] MEDS ORDERED: CHOLECALCIFEROL (VIT D3) 1,000 UNIT (25 MCG) TABLET ONE (09:31)
[2020-08-27] MEDS ORDERED: PANTOPRAZOLE 20 MG TABLET PO ONE (09:31)
[2020-08-27] MEDS ORDERED: FOLIC ACID 1 MG TABLET (FP) ONE (09:31)
[2020-08-27] MEDS ORDERED: TAMSULOSIN HCL 0.4 MG CAP ONE (09:31)
[2020-08-27] MEDS ORDERED: PT OWN MED DRAWER 7, Y5N ONE (09:32)
[2020-08-27 10:07] LABS: CALCIUM 8.9 mg/dL (8.5-10.1)
[2020-08-27 10:18] LABS: CREATININE 1.4 mg/dL (0.55-1.3); MAGNESIUM 2.1 mg/dL (1.8-2.4); PHOSPHOROUS 2.5 mg/dL (2.5-4.9); TOT PROT 7.2 g/dl (6.4-8.2)
[2020-08-27] MEDS: TAMSULOSIN HCL 0.4 MG CAP PO SCH (10:40)
[2020-08-27] MEDS: FOLIC ACID 1 MG TABLET (FP) PO SCH (10:40)
[2020-08-27] MEDS: PANTOPRAZOLE 20 MG TABLET PO SCH (10:40)
[2020-08-27] MEDS: CHOLECALCIFEROL (VIT D3) 1,000 UNIT (25 MCG) TABLET PO SCH (10:40)
[2020-08-27] MEDS: BICTEGRAV/EMTRICIT/TENOFOV (BIKTARVY) 50-200-25 MG TABLET PO SCH (10:41)
[2020-08-27] MEDS ORDERED: HEPARIN INFUSION - 25,000 UNITS/500 ML INFUS.BAG IVPB ONE (18:15)
[2020-08-27] MEDS ORDERED: cefTRIAXone SODIUM 1 GM VIAL ONE (21:04)
[2020-08-27] MEDS ORDERED: DEXTROSE 5%-WATER - 50 ML IVPB ONE (21:05)
[2020-08-27] MEDS: HEPARIN INFUSION - 25,000 UNITS/500 ML INFUS.BAG IVPB SCH (21:13)
[2020-08-27] MEDS: AZITHROMYCIN IVPB 500 MG/250 ML BAG IVPB SCH (21:14)
[2020-08-27] MEDS: CEFTRIAXONE 1 GM in DEXTROSE 5%-WATER - 50 ML IVPB SCH (21:14)
[2020-08-27] MEDS ORDERED: BISACODYL 5 MG TABLET.DR (FP) PO SCH (22:00)
[2020-08-28] MEDS ORDERED: amLODIPine BESYLATE 5 MG TABLET (FP) PO ONE (02:37)
[2020-08-28] MEDS ORDERED: DEXTROSE 5%-WATER - 50 ML IVPB ONE (09:00)
[2020-08-28] MEDS ORDERED: cefTRIAXone SODIUM 1 GM VIAL ONE (09:00)
[2020-08-28] MEDS: CEFTRIAXONE 1 GM in DEXTROSE 5%-WATER - 50 ML IVPB SCH (09:07)
[2020-08-28] MEDS: TAMSULOSIN HCL 0.4 MG CAP PO SCH (09:09)
[2020-08-28] MEDS: PANTOPRAZOLE 20 MG TABLET PO SCH (09:09)
[2020-08-28] MEDS: CHOLECALCIFEROL (VIT D3) 1,000 UNIT (25 MCG) TABLET PO SCH (09:09)
[2020-08-28] MEDS: BICTEGRAV/EMTRICIT/TENOFOV (BIKTARVY) 50-200-25 MG TABLET PO SCH (09:10)
[2020-08-28] MEDS: FOLIC ACID 1 MG TABLET (FP) PO SCH (09:10)
[2020-08-28 09:17] LABS: BASO % 0.5 % (0-2.0); EOS % 0.4 % (0-4.5); HEMATOCRIT 46.1 % (35.4-49); HEMOGLOBIN 15.5 GM/dL (11.7-16.9); LYMPH % 7.9 % (8-40); MCH 29.7 pg (25.7-33.7); MCHC 33.6 g/dl (32.0-35.9); MEAN CELL VOLUME 88.3 fl (80-96); NEUT % 85.2 % (42.8-82.8); PLATELET COUNT 138 K/MM3 (134-434); RBC 5.23 M/mm3 (4.00-5.60); RDW 14.2 % (11.9-15.9); WHITE BLOOD COUNT 11.6 K/mm3 (4.0-10.0)
[2020-08-28] MEDS: AZITHROMYCIN IVPB 500 MG/250 ML BAG IVPB SCH (09:37)
[2020-08-28] MEDS ORDERED: amLODIPine BESYLATE 5 MG TABLET (FP) PO SCH (10:00)
[2020-08-28] MEDS ORDERED: amLODIPine BESYLATE 10 MG TABLET (FP) PO SCH (10:00)
[2020-08-28 10:42] LABS: ALBUMIN 3.2 g/dl (3.4-5.0); BILIRUBIN,TOTAL 0.7 mg/dL (0.2-1); BLOOD UREA NITROGEN 17.9 mg/dL (7-18); CALCIUM 9.6 mg/dL (8.5-10.1); CREATININE 1.4 mg/dL (0.55-1.3); TOT PROT 8.3 g/dl (6.4-8.2)
[2020-08-28 13:09] LABS: MYCOPLASMA PNEUMONIAE,IG G AB 338 U/mL (0-99); MYCOPLASMA PNEUMONIAE,IGM AB <770 U/mL (0-769)
[2020-08-28 14:50] VITALS: BP 165/106; PULSE 94; TEMP 98.5
== END 2020-08-28 18:20 | disposition home or self-care (01) | DRG 175 ==
LOC: JER 14:11 → JERBED 19:59 → J6WEST-2 08-27 20:16
PROVIDERS: ADMIT Hospitalist; ATTEND Student in an Organized Health Care Education/Training Program
DX: I26.99 Other pulmonary embolism without acute cor pulmonale (principal); J18.9 Pneumonia, unspecified organism; F11.20 Opioid dependence, uncomplicated; N17.9 Acute kidney failure, unspecified; I82.411 Acute embolism and thrombosis of right femoral vein; I82.431 Acute embolism and thrombosis of right popliteal vein; N40.0 Benign prostatic hyperplasia without lower urinary tract symptoms; I12.9 Hypertensive chronic kidney disease with stage 1 through stage 4 chronic kidney disease, or unspecified chronic kidney disease; N18.9 Chronic kidney disease, unspecified; K21.9 Gastro-esophageal reflux disease without esophagitis; Z87.891 Personal history of nicotine dependence; B19.20 Unspecified viral hepatitis C without hepatic coma; I16.0 Hypertensive urgency; D63.8 Anemia in other chronic diseases classified elsewhere; Z86.16 Personal history of COVID-19; Z21 Asymptomatic human immunodeficiency virus [HIV] infection status; K74.60 Unspecified cirrhosis of liver
CPT/HCPCS: 36415; 71046-TC-FY; 71275-TC; 80053; 80061; 80307; 81003; 82272; 82550; 83036; 83721; 83735; 84100; 84484; 85025; 85610; 85730; 86359; 86360; 86738; 87536; 87899; 93005; 93010; 93306-TC; 93970-TC; 97116-GP; 97162-GP; 99285-25; C9803; J1644; U0003; U0005

== ENCOUNTER 2021-02-21 05:04 | Emergency (ER) | payer OTHER ==
[2021-02-21 05:30] VITALS: BP 139/88; PULSE 76; TEMP 97.8; BMI 30.4
[2021-02-21] MEDS ORDERED: PANTOPRAZOLE SODIUM 40 MG VIAL IVPUSH ONE (05:56)
[2021-02-21] MEDS ORDERED: PANTOPRAZOLE SODIUM 40 MG VIAL ONE (06:20)
[2021-02-21 07:34] LABS: BASO % 0.4 % (0-2.0); EOS % 3.1 % (0-4.5); HEMATOCRIT 34.8 % (35.4-49); HEMOGLOBIN 11.4 GM/dL (11.7-16.9); LYMPH % 20.9 % (8-40); MCH 28.9 pg (25.7-33.7); MCHC 32.8 g/dl (32.0-35.9); MEAN PLT VOLUME 10.3 fl (7.5-11.1); MONO % 5.7 % (3.8-10.2); NEUT % 69.9 % (42.8-82.8); PLATELET COUNT 94 10^3/uL (134-434); RBC 3.96 M/mm3 (4.00-5.60); RDW 15.3 % (11.9-15.9); WHITE BLOOD COUNT 7.9 K/mm3 (4.0-10.0)
[2021-02-21 07:40] LABS: CHLORIDE 104 mmol/L (98-107); SODIUM 128 mmol/L (136-145)
[2021-02-21 07:42] LABS: CALCIUM 7.9 mg/dL (8.5-10.1)
[2021-02-21 07:43] LABS: ALBUMIN 2.9 g/dl (3.4-5.0); CO2 25 mmol/L (21-32); GLUCOSE,RANDOM 90 mg/dL (74-106)
[2021-02-21 07:46] LABS: CREATININE 1.7 mg/dL (0.55-1.3); INR 1.13 (0.83-1.09); PROTHROMBIN TIME (PATIENT) 13.9 SEC (9.7-13.0)
[2021-02-21 07:48] LABS: TOT PROT 8.4 g/dl (6.4-8.2)
[2021-02-21 07:49] LABS: ACTIVATED PTT 20.8 SECONDS (25.2-36.5); ALK PHOS 75 U/L (45-117)
[2021-02-21 07:51] LABS: ANION GAP -1 MMOL/L (8-16); SGOT/AST 105 U/L (15-37)
[2021-02-21] MEDS ORDERED: SODIUM CHLORIDE 1,000 ML IV STA (08:09)
[2021-02-21 08:45] LABS: ALBUMIN 2.8 g/dl (3.4-5.0); BLOOD UREA NITROGEN 30.9 mg/dL (7-18); CALCIUM 8.3 mg/dL (8.5-10.1)
[2021-02-21 08:48] LABS: CREATININE 1.7 mg/dL (0.55-1.3)
[2021-02-21 08:50] LABS: BILIRUBIN,TOTAL 0.8 mg/dL (0.2-1); TOT PROT 6.4 g/dl (6.4-8.2)
[2021-02-21 10:45] LABS: PLATELET ESTIMATE DECREASED
== END 2021-02-21 12:04 | disposition home or self-care (01) ==
LOC: JER 05:04
PROC: 3E033GC Introduction of Other Therapeutic Substance into Peripheral Vein, Percutaneous Approach (ICD-10-PCS; principal; 2021-02-21)
DX: K62.5 Hemorrhage of anus and rectum (principal)
CPT/HCPCS: 36415; 74177-TC; 80053; 85025; 85610; 85730; 86850; 86900; 86901; 93005; 93010; 96361; 96374; 99285-25; C9803; U0003; U0005

== ENCOUNTER 2021-02-26 16:57 | Observation (INO) | payer OTHER ==
[2021-02-26 18:33] LABS: BASO % 0.9 % (0-2.0); EOS % 1.7 % (0-4.5); HEMATOCRIT 24.9 % (35.4-49); HEMOGLOBIN 8.3 GM/dL (11.7-16.9); LYMPH % 12.5 % (8-40); MCHC 33.4 g/dl (32.0-35.9); MEAN PLT VOLUME 9.5 fl (7.5-11.1); MONO % 4.7 % (3.8-10.2); NEUT % 80.2 % (42.8-82.8); PLATELET COUNT 118 10^3/uL (134-434); RBC 2.87 M/mm3 (4.00-5.60); RDW 15.5 % (11.9-15.9); WHITE BLOOD COUNT 7.6 K/mm3 (4.0-10.0)
[2021-02-26 18:56] LABS: CALCIUM 8.5 mg/dL (8.5-10.1)
[2021-02-26 18:57] LABS: ALBUMIN 2.9 g/dl (3.4-5.0); BLOOD UREA NITROGEN 18.2 mg/dL (7-18)
[2021-02-26 19:00] LABS: CREATININE 1.8 mg/dL (0.55-1.3)
[2021-02-26 19:01] LABS: BILIRUBIN,TOTAL 0.2 mg/dL (0.2-1); TOT PROT 6.8 g/dl (6.4-8.2)
[2021-02-27 01:06] VITALS: BMI 30.2
[2021-02-27 01:49] LABS: HEMATOCRIT 24.5 % (35.4-49); HEMOGLOBIN 8.2 GM/dL (11.7-16.9); MCH 29.4 pg (25.7-33.7); MCHC 33.7 g/dl (32.0-35.9); MEAN CELL VOLUME 87.4 fl (80-96); MEAN PLT VOLUME 9.3 fl (7.5-11.1); PLATELET COUNT 103 10^3/uL (134-434); RDW 15.6 % (11.9-15.9)
[2021-02-27 08:09] LABS: HEMATOCRIT 28.9 % (35.4-49); HEMOGLOBIN 9.8 GM/dL (11.7-16.9); MCH 29.6 pg (25.7-33.7); MEAN PLT VOLUME 9.8 fl (7.5-11.1); PLATELET COUNT 117 10^3/uL (134-434); RBC 3.32 M/mm3 (4.00-5.60); RDW 15.8 % (11.9-15.9); WHITE BLOOD COUNT 7.5 K/mm3 (4.0-10.0)
[2021-02-27 08:23] LABS: BLOOD UREA NITROGEN 17.8 mg/dL (7-18); CALCIUM 8.9 mg/dL (8.5-10.1); MAGNESIUM 2.1 mg/dL (1.8-2.4)
[2021-02-27 08:27] LABS: CREATININE 1.5 mg/dL (0.55-1.3); PHOSPHOROUS 2.7 mg/dL (2.5-4.9)
[2021-02-27] MEDS ORDERED: TAMSULOSIN HCL 0.4 MG CAP PO SCH (08:30)
[2021-02-27 08:55] LABS: INR 1.01 (0.83-1.09); PROTHROMBIN TIME (PATIENT) 12.2 SEC (9.7-13.0)
[2021-02-27 08:58] LABS: ACTIVATED PTT 29.5 SECONDS (25.2-36.5)
[2021-02-27] MEDS ORDERED: LOSARTAN POTASSIUM 25 MG TABLET PO SCH (10:00)
[2021-02-27] MEDS ORDERED: FOLIC ACID 1 MG TABLET (FP) PO SCH (10:00)
[2021-02-27] MEDS ORDERED: PANTOPRAZOLE SODIUM 40 MG VIAL IVPUSH SCH ×2 (10:00)
[2021-02-27] MEDS ORDERED: BICTEGRAV/EMTRICIT/TENOFOV (BIKTARVY) 50-200-25 MG TABLET PO SCH (10:00)
[2021-02-27] MEDS ORDERED: HYDROCHLOROTHIAZIDE 25 MG TABLET (FP) PO SCH (10:00)
[2021-02-27] MEDS ORDERED: PT OWN MED DRAWER 7, Y5N ONE ×2 (10:27→15:52)
[2021-02-27] MEDS ORDERED: IRON SUCROSE INJECTION 200 MG in SODIUM CHLORIDE 90 ML IVPB ONE (13:55)
[2021-02-27 15:19] VITALS: BP 124/73; PULSE 71; TEMP 98.1
== END 2021-02-27 16:56 | disposition home or self-care (01) ==
LOC: JER 16:57 → JERBED 19:42 → UNDOADMOB 19:42 → INTOOBSV 21:50 → OBSVTOIN 21:50 → J5S 23:22 → JERBED 23:22 → J5S 02-27 11:43
PROVIDERS: ADMIT Internal Medicine; ATTEND Nurse Practitioner Family
PROC: 3E033GC Introduction of Other Therapeutic Substance into Peripheral Vein, Percutaneous Approach (ICD-10-PCS; principal; 2021-02-27)
PROC: 30233N1 Transfusion of Nonautologous Red Blood Cells into Peripheral Vein, Percutaneous Approach (ICD-10-PCS; 2021-02-27)
DX: K62.5 Hemorrhage of anus and rectum (principal); D64.9 Anemia, unspecified; K21.9 Gastro-esophageal reflux disease without esophagitis; I10 Essential (primary) hypertension; B20 Human immunodeficiency virus [HIV] disease; F11.20 Opioid dependence, uncomplicated; Z87.891 Personal history of nicotine dependence; Z86.718 Personal history of other venous thrombosis and embolism; B19.20 Unspecified viral hepatitis C without hepatic coma; E66.9 Obesity, unspecified; N28.9 Disorder of kidney and ureter, unspecified; Z68.30 Body mass index [BMI] 30.0-30.9, adult
CPT/HCPCS: 36415; 36430; 80048; 80053; 82272; 83540; 83550; 83735; 84100; 85025; 85027; 85610; 85730; 86850; 86900; 86901; 86922; 93005; 93010; 96365; 96375; 97116-GP; 97162-GP; 99285-25; C9803; G0378; J1756; P9058; U0003; U0005

== ENCOUNTER 2021-07-19 20:49 | Inpatient (IN) | payer OTHER ==
[2021-07-19] MEDS ORDERED: VANCOMYCIN 1 GM in D5W (PRE-DOCKED) 1,000 MG/250 ML IVPB ONE (21:20)
[2021-07-19] MEDS ORDERED: PIPERACILLIN/TAZOB 3.375 GM 3.375 GM in DEXTROSE 5%-WATER - 50 ML IVPB ONE (21:27)
[2021-07-19] MEDS ORDERED: VANCOMYCIN 1 GRAM (PRE-DOCKED) 1,000 MG/250 ML BAG IVPB ONE (22:02)
[2021-07-19] MEDS ORDERED: PIPERACILLIN/TAZOB 3.375 GM 3.375 GM/50 ML BAG IVPB ONE (22:03)
[2021-07-19 22:23] LABS: BASO % 0.5 % (0-2.0); EOS % 1.6 % (0-4.5); HEMATOCRIT 34.7 % (35.4-49); HEMOGLOBIN 11.4 GM/dL (11.7-16.9); LYMPH % 10.1 % (8-40); MCH 26.9 pg (25.7-33.7); MCHC 32.9 g/dl (32.0-35.9); MEAN CELL VOLUME 81.7 fl (80-96); MEAN PLT VOLUME 9.5 fl (7.5-11.1); NEUT % 81.8 % (42.8-82.8); PLATELET COUNT 101 10^3/uL (134-434); RBC 4.25 M/mm3 (4.00-5.60); RDW 16.4 % (11.9-15.9); WHITE BLOOD COUNT 8.8 K/mm3 (4.0-10.0)
[2021-07-19 22:35] LABS: INR 1.22 (0.83-1.09); PROTHROMBIN TIME (PATIENT) 14.1 SEC (9.7-13.0)
[2021-07-19 22:43] LABS: CALCIUM 8.4 mg/dL (8.5-10.1)
[2021-07-19 22:44] LABS: BLOOD UREA NITROGEN 30.6 mg/dL (7-18)
[2021-07-19 22:47] LABS: CREATININE 1.8 mg/dL (0.55-1.3)
[2021-07-19 22:48] LABS: BILIRUBIN,TOTAL 0.3 mg/dL (0.2-1); TOT PROT 7.4 g/dl (6.4-8.2)
[2021-07-19 23:07] LABS: ERYTHROCYTE SEDIMENTATION RATE 43 mm/hr (0-20)
[2021-07-19] MEDS ORDERED: ONDANSETRON 4 MG/2 ML VIAL IVPUSH ONE (23:17)
[2021-07-19] MEDS ORDERED: LIDOCAINE HCL 2% JELLY 10 ML CARTRIDGE UR ONE (23:17)
[2021-07-20] MEDS ORDERED: SODIUM CHLORIDE 1,000 ML IV SCH (01:15)
[2021-07-20] MEDS: CEFAZOLIN 2 GM in SODIUM CHLORIDE 100 ML IVPB SCH ×3 (03:36→18:28)
[2021-07-20 03:55] VITALS: BMI 31.8
[2021-07-20 09:09] LABS: BASO % 0.8 % (0-2.0); EOS % 3.4 % (0-4.5); HEMATOCRIT 34.4 % (35.4-49); HEMOGLOBIN 11.2 GM/dL (11.7-16.9); INR 1.24 (0.83-1.09); LYMPH % 9.9 % (8-40); MCH 26.5 pg (25.7-33.7); MCHC 32.6 g/dl (32.0-35.9); MEAN CELL VOLUME 81.3 fl (80-96); MEAN PLT VOLUME 9.6 fl (7.5-11.1); MONO % 7.3 % (3.8-10.2); NEUT % 78.6 % (42.8-82.8); PLATELET COUNT 106 10^3/uL (134-434); PROTHROMBIN TIME (PATIENT) 14.3 SEC (9.7-13.0); RBC 4.23 M/mm3 (4.00-5.60); RDW 16.3 % (11.9-15.9); WHITE BLOOD COUNT 7.3 K/mm3 (4.0-10.0)
[2021-07-20 09:11] LABS: ACTIVATED PTT 28.8 SECONDS (25.2-36.5)
[2021-07-20 09:29] LABS: MAGNESIUM 2.1 mg/dL (1.8-2.4)
[2021-07-20 09:30] LABS: BLOOD UREA NITROGEN 23.2 mg/dL (7-18); CALCIUM 8.1 mg/dL (8.5-10.1)
[2021-07-20 09:31] LABS: ALBUMIN 2.6 g/dl (3.4-5.0)
[2021-07-20 09:33] LABS: CREATININE 1.5 mg/dL (0.55-1.3); PHOSPHOROUS 2.2 mg/dL (2.5-4.9); TOT PROT 6.5 g/dl (6.4-8.2)
[2021-07-20 09:35] LABS: BILIRUBIN,TOTAL 0.4 mg/dL (0.2-1)
[2021-07-20] MEDS ORDERED: amLODIPine BESYLATE 10 MG TABLET (FP) PO SCH (10:00)
[2021-07-20] MEDS ORDERED: methaDONE HCL 10 MG TABLET PO ONE (10:00)
[2021-07-20] MEDS: DOCUSATE SODIUM 100 MG CAPSULE (FP) PO SCH ×2 (10:09→21:28)
[2021-07-20] MEDS: TAMSULOSIN HCL 0.4 MG CAP PO SCH (10:09)
[2021-07-20] MEDS: FOLIC ACID 1 MG TABLET (FP) PO SCH (10:11)
[2021-07-20] MEDS: LOSARTAN POTASSIUM 25 MG TABLET PO SCH (10:11)
[2021-07-20] MEDS: HYDROCHLOROTHIAZIDE 25 MG TABLET (FP) PO SCH (10:11)
[2021-07-20] MEDS: BICTEGRAV/EMTRICIT/TENOFOV (BIKTARVY) 50-200-25 MG TABLET PO SCH (10:42)
[2021-07-20] MEDS ORDERED: POTASSIUM CHLORIDE TABS 20 MEQ TABLET.ER (FP) PO ONE (11:48)
[2021-07-20] MEDS: NAPH,MB-DB/K PH,MBDB POWDER PACKET PO SCH ×2 (12:26→21:28)
[2021-07-20] MEDS: predniSONE 20 MG TABLET (UD) PO SCH (15:16)
[2021-07-20 17:59] LABS: URINE APPEARANCE CLEAR; URINE BILIRUBIN NEGATIVE (NEGATIVE); URINE COLOR YELLOW; URINE GLUCOSE (UA) NEGATIVE (NEGATIVE); URINE KETONE NEGATIVE (NEGATIVE); URINE LEUK ESTERASE NEGATIVE (NEGATIVE); URINE NITRITE NEGATIVE (NEGATIVE); URINE PROTEIN NEGATIVE (NEGATIVE); URINE UROBILINOGEN 0.2 mg/dL (0.2-1.0)
[2021-07-21] MEDS: CEFAZOLIN 2 GM in SODIUM CHLORIDE 100 ML IVPB SCH ×3 (01:36→17:18)
[2021-07-21] MEDS ORDERED: methaDONE HCL 10 MG TABLET PO SCH (06:00)
[2021-07-21 08:48] LABS: CALCIUM 8.8 mg/dL (8.5-10.1)
[2021-07-21 08:49] LABS: ALBUMIN 2.6 g/dl (3.4-5.0); BLOOD UREA NITROGEN 22.7 mg/dL (7-18)
[2021-07-21 08:52] LABS: CREATININE 1.6 mg/dL (0.55-1.3); URIC ACID 6.8 mg/dL (2.6-7.2)
[2021-07-21 08:54] LABS: BILIRUBIN,TOTAL 0.2 mg/dL (0.2-1); TOT PROT 6.9 g/dl (6.4-8.2)
[2021-07-21] MEDS ORDERED: methaDONE HCL 10 MG TABLET PO ONE (10:00)
[2021-07-21] MEDS: LOSARTAN POTASSIUM 25 MG TABLET PO SCH (11:02)
[2021-07-21] MEDS: DOCUSATE SODIUM 100 MG CAPSULE (FP) PO SCH ×2 (11:03→21:05)
[2021-07-21] MEDS: FOLIC ACID 1 MG TABLET (FP) PO SCH (11:03)
[2021-07-21] MEDS: HYDROCHLOROTHIAZIDE 25 MG TABLET (FP) PO SCH (11:03)
[2021-07-21] MEDS: TAMSULOSIN HCL 0.4 MG CAP PO SCH (11:03)
[2021-07-21] MEDS: NAPH,MB-DB/K PH,MBDB POWDER PACKET PO SCH ×2 (11:03→20:59)
[2021-07-21] MEDS: BICTEGRAV/EMTRICIT/TENOFOV (BIKTARVY) 50-200-25 MG TABLET PO SCH (11:03)
[2021-07-21] MEDS: predniSONE 20 MG TABLET (UD) PO SCH (11:46)
[2021-07-21 19:24] VITALS: BP 135/79; PULSE 75; TEMP 98.7
[2021-07-21] MEDS ORDERED: ACETAMINOPHEN 325 MG TABLET (FP) PO PRN (20:27)
[2021-07-22] MEDS: CEFAZOLIN 2 GM in SODIUM CHLORIDE 100 ML IVPB SCH (03:25)
== END 2021-07-22 05:11 | disposition left against medical advice (07) | DRG 603 ==
LOC: JER 20:49 → JERBED 23:50 → J5S 07-20 03:06
PROVIDERS: ADMIT Hospitalist; ATTEND Internal Medicine
DX: L03.113 Cellulitis of right upper limb (principal); N17.9 Acute kidney failure, unspecified; F11.20 Opioid dependence, uncomplicated; I44.0 Atrioventricular block, first degree; I12.9 Hypertensive chronic kidney disease with stage 1 through stage 4 chronic kidney disease, or unspecified chronic kidney disease; N18.9 Chronic kidney disease, unspecified; N40.0 Benign prostatic hyperplasia without lower urinary tract symptoms; Z86.711 Personal history of pulmonary embolism; Z86.718 Personal history of other venous thrombosis and embolism; E87.6 Hypokalemia; Z21 Asymptomatic human immunodeficiency virus [HIV] infection status; Z53.29 Procedure and treatment not carried out because of patient's decision for other reasons; M10.9 Gout, unspecified
CPT/HCPCS: 36415; 73130-TC-RT-FY; 76775-TC; 80053; 81003; 82570; 82962; 83605; 83735; 84100; 84156; 84550; 85025; 85610; 85651; 85730; 86140; 87040; 93005; 93010; 93971; 97116-GP; 97161-GP; 99285-25; C9803; U0003; U0005

== ENCOUNTER 2023-11-03 12:48 | Inpatient (IN) | payer OTHER ==
[2023-11-03 12:57] VITALS: BMI 28.6
[2023-11-03] MEDS ORDERED: ONDANSETRON 4 MG/2 ML VIAL ONE (13:34)
[2023-11-03] MEDS ORDERED: MAG HYDROX/AL HYDROX/SIMETH 30 ML UNIT-DOSE CUP ONE (13:34)
[2023-11-03] MEDS ORDERED: FAMOTIDINE 20 MG/50 ML IVPB 20 MG/50 ML MG IVPB ONE (13:35)
[2023-11-03] MEDS: SODIUM CHLORIDE 0.9% 500 ML INFUS.BAG IV ONE ×2 (14:00→16:36)
[2023-11-03] MEDS: FAMOTIDINE 20 MG/50 ML IVPB 20 MG/50 ML MG IVPB ONE (14:05)
[2023-11-03] MEDS: ONDANSETRON 4 MG/2 ML VIAL IVPUSH ONE (14:05)
[2023-11-03 14:23] LABS: HEMATOCRIT 44.3 % (35.4-49); HEMOGLOBIN 14.6 GM/dL (11.7-16.9); MCH 28.1 pg (25.7-33.7); MEAN CELL VOLUME 85.1 fl (80-96); MEAN PLT VOLUME 9.7 fl (7.5-11.1); PLATELET COUNT 188 10^3/uL (134-434); RBC 5.21 M/mm3 (4.00-5.60); RDW 15.4 % (11.9-15.9); WHITE BLOOD COUNT 11.5 K/mm3 (4.0-10.0)
[2023-11-03] MEDS: MAG HYDROX/AL HYDROX/SIMETH 30 ML UNIT-DOSE CUP PO ONE (14:33)
[2023-11-03] MEDS: CEFTRIAXONE 1 GM in DEXTROSE 5%-WATER - 100 ML IVPB ONE (14:34)
[2023-11-03 14:42] LABS: CHLORIDE 94 mmol/L (98-107); POTASSIUM 5.1 mmol/L (3.5-5.1); SODIUM 132 mmol/L (136-145)
[2023-11-03 14:44] LABS: ALBUMIN 3.3 g/dl (3.4-5.0); ANION GAP 13 mmol/L (4-13); CO2 25 mmol/L (21-32); GLUCOSE,RANDOM 143 mg/dL (74-106)
[2023-11-03 14:45] LABS: BLOOD UREA NITROGEN 39.7 mg/dL (7-18)
[2023-11-03 14:46] LABS: CREATININE 2.3 mg/dL (0.55-1.3); SGPT/ALT 346 U/L (13-61)
[2023-11-03 14:49] LABS: TOT PROT 9.2 g/dl (6.4-8.2)
[2023-11-03 14:50] LABS: ALK PHOS 492 U/L (45-117)
[2023-11-03 14:51] LABS: LACTIC ACID 3.3 mmol/L (0.4-2.0)
[2023-11-03 14:56] LABS: SGOT/AST 455 U/L (15-37)
[2023-11-03 15:19] LABS: CALCIUM 16.1 mg/dL (8.5-10.1)
[2023-11-03] MEDS ORDERED: DOCUSATE SODIUM 100 MG CAPSULE (FP) PO PRN (23:27)
[2023-11-04] MEDS ORDERED: traMADol HCL 50 MG TABLET PO PRN (00:15)
[2023-11-04] MEDS ORDERED: MORPHINE SULFATE 2 MG/ML SYRINGE IVPUSH PRN (00:16)
[2023-11-04] MEDS ORDERED: morphine SULFATE 4 MG/ML VIAL ONE (01:13)
[2023-11-04] MEDS: SODIUM CHLORIDE 1,000 ML IV SCH ×2 (01:20→21:10)
[2023-11-04] MEDS: MORPHINE SULFATE 2 MG/ML SYRINGE IVPUSH ONE (01:20)
[2023-11-04 01:48] LABS: HEMATOCRIT 46.2 % (35.4-49); HEMOGLOBIN 15.1 GM/dL (11.7-16.9); MCHC 32.7 g/dl (32.0-35.9); MEAN CELL VOLUME 85.7 fl (80-96); MEAN PLT VOLUME 8.6 fl (7.5-11.1); PLATELET COUNT 160 10^3/uL (134-434); RBC 5.39 M/mm3 (4.00-5.60); RDW 16.1 % (11.9-15.9); WHITE BLOOD COUNT 12.4 K/mm3 (4.0-10.0)
[2023-11-04 02:15] LABS: CHLORIDE 101 mmol/L (98-107); POTASSIUM 3.4 mmol/L (3.5-5.1); SODIUM 135 mmol/L (136-145); SODIUM 136 mmol/L (136-145)
[2023-11-04 02:16] LABS: ANION GAP 9 mmol/L (4-13); BLOOD UREA NITROGEN 35.7 mg/dL (7-18); CO2 26 mmol/L (21-32); GLUCOSE,RANDOM 133 mg/dL (74-106)
[2023-11-04 02:18] LABS: ALBUMIN 2.8 g/dl (3.4-5.0); ANION GAP 9 mmol/L (4-13); BLOOD UREA NITROGEN 35.4 mg/dL (7-18); CO2 26 mmol/L (21-32); GLUCOSE,RANDOM 133 mg/dL (74-106); MAGNESIUM 1.7 mg/dL (1.8-2.4)
[2023-11-04 02:20] LABS: PHOSPHOROUS 3.2 mg/dL (2.5-4.9); SGOT/AST 319 U/L (15-37); SGPT/ALT 281 U/L (13-61)
[2023-11-04 02:23] LABS: BILIRUBIN,TOTAL 0.8 mg/dL (0.2-1); TOT PROT 7.6 g/dl (6.4-8.2)
[2023-11-04 02:30] LABS: CALCIUM 14.2 mg/dL (8.5-10.1)
[2023-11-04 02:31] LABS: ALK PHOS 455 U/L (45-117); CALCIUM 14.8 mg/dL (8.5-10.1)
[2023-11-04] MEDS: MAGNESIUM 2GM/50ML STERILE WATER IVPB IVPB ONE (03:15)
[2023-11-04] MEDS: KCL 10 MEQ IVPB 10 MEQ/100 ML INFUS.BAG IVPB SCH (04:31)
[2023-11-04] MEDS: HEPARIN NA (PORCINE) 5,000 UNITS/ML 1ML VIAL SQ SCH (06:15)
[2023-11-04] MEDS: TAMSULOSIN HCL 0.4 MG CAP PO SCH (08:11)
[2023-11-04 08:30] LABS: CHLORIDE 100 mmol/L (98-107); HEMATOCRIT 46.6 % (35.4-49); HEMOGLOBIN 15.8 GM/dL (11.7-16.9); MCH 28.4 pg (25.7-33.7); MCHC 33.8 g/dl (32.0-35.9); MEAN CELL VOLUME 83.9 fl (80-96); POTASSIUM 3.8 mmol/L (3.5-5.1); RBC 5.55 M/mm3 (4.00-5.60); RDW 15.8 % (11.9-15.9); SODIUM 134 mmol/L (136-145); WHITE BLOOD COUNT 13.5 K/mm3 (4.0-10.0)
[2023-11-04 08:35] LABS: GLUCOSE,RANDOM 129 mg/dL (74-106)
[2023-11-04 08:36] LABS: ALBUMIN 2.8 g/dl (3.4-5.0); ANION GAP 9 mmol/L (4-13); CO2 25 mmol/L (21-32); MAGNESIUM 2.5 mg/dL (1.8-2.4)
[2023-11-04 08:38] LABS: PHOSPHOROUS 2.5 mg/dL (2.5-4.9); SGOT/AST 281 U/L (15-37); SGPT/ALT 260 U/L (13-61)
[2023-11-04 08:41] LABS: ALK PHOS 455 U/L (45-117); BILIRUBIN,TOTAL 0.9 mg/dL (0.2-1); TOT PROT 7.3 g/dl (6.4-8.2)
[2023-11-04 08:41] LABS: METHADONE, UR NEGATIVE (NEGATIVE); PHENCYCLIDINE,URINE NEGATIVE (NEGATIVE); URINE BARBITURATES NEGATIVE (NEGATIVE); URINE BENZODIAZEPINES NEGATIVE (NEGATIVE)
[2023-11-04 08:49] LABS: COCAINE, UR NEGATIVE (NEGATIVE); OPIATES, URI POSITIVE (NEGATIVE); URINE AMPHETAMINES NEGATIVE (NEGATIVE)
[2023-11-04] MEDS: LOSARTAN POTASSIUM 50 MG TABLET PO SCH (09:57)
[2023-11-04] MEDS: PANTOPRAZOLE 20 MG TABLET PO SCH (09:57)
[2023-11-04] MEDS: FOLIC ACID 1 MG TABLET (FP) PO SCH (09:57)
[2023-11-04] MEDS: POLYETHYLENE GLYCOL (HEALTHYLAX) 3350 17 GM PACKET PO SCH (09:57)
[2023-11-04] MEDS: LIDOCAINE 4% PATCH TP SCH (09:57)
[2023-11-04] MEDS: ZOLEDRONIC ACID 4 MG in SODIUM CHLORIDE 100 ML IVPB ONE (09:58)
[2023-11-04] MEDS ORDERED: AMMONIUM LACTATE 12% CREAM 140 GM TUBE TP SCH (10:00)
[2023-11-04] MEDS: BICTEGRAV/EMTRICIT/TENOFOV (BIKTARVY) 50-200-25 MG TABLET PO SCH (11:34)
[2023-11-04] MEDS: amLODIPine BESYLATE 5 MG TABLET (FP) PO ONE ×2 (14:04→17:15)
[2023-11-04] MEDS: AMMONIUM LACTATE 12% LOTION 225 GM BOTTLE TP SCH (15:11)
[2023-11-04] MEDS: CALCITONIN - SALMON SYNTHETIC 400 UNIT/2 ML VIAL IM SCH (15:21)
[2023-11-04] MEDS: methaDONE HCL 10 MG TABLET PO ONE (15:21)
[2023-11-04] MEDS: hydrALAZINE HCL 10 MG TABLET PO SCH ×2 (16:04→17:30)
[2023-11-04] MEDS: LABETALOL HCL 100 MG TABLET (FP) PO ONE (16:09)
[2023-11-04] MEDS: FUROSEMIDE 40 MG/4 ML INJECTABLE VIAL IVPUSH ONE (17:30)
[2023-11-04] MEDS: LIDOCAINE PATCH REMOVAL MC SCH (21:55)
[2023-11-04] MEDS ORDERED: LABETALOL HCL 100 MG TABLET (FP) PO SCH (22:00)
[2023-11-04] MEDS ORDERED: amLODIPine BESYLATE 5 MG TABLET (FP) PO SCH (22:00)
[2023-11-05] MEDS: methaDONE HCL 10 MG TABLET PO SCH (05:46)
[2023-11-05] MEDS: amLODIPine BESYLATE 10 MG TABLET (FP) PO SCH (11:54)
[2023-11-05 15:46] LABS: BASO % 0.4 % (0-2.0); EOS % 0.2 % (0-4.5); HEMATOCRIT 46.6 % (35.4-49); HEMOGLOBIN 15.2 GM/dL (11.7-16.9); LYMPH % 4.8 % (8-40); MCH 27.8 pg (25.7-33.7); MCHC 32.6 g/dl (32.0-35.9); MEAN CELL VOLUME 85.2 fl (80-96); MEAN PLT VOLUME 9.4 fl (7.5-11.1); MONO % 8.8 % (3.8-10.2); NEUT % 85.8 % (42.8-82.8); PLATELET COUNT 128 10^3/uL (134-434); RBC 5.47 M/mm3 (4.00-5.60); RDW 16.4 % (11.9-15.9); WHITE BLOOD COUNT 11.8 K/mm3 (4.0-10.0)
[2023-11-05 16:12] LABS: POTASSIUM 3.8 mmol/L (3.5-5.1)
[2023-11-05 16:17] LABS: ALBUMIN 2.5 g/dl (3.4-5.0); BLOOD UREA NITROGEN 46.1 mg/dL (7-18); CALCIUM 13.6 mg/dL (8.5-10.1)
[2023-11-05 16:20] LABS: CREATININE 2.2 mg/dL (0.55-1.3)
[2023-11-05 16:22] LABS: BILIRUBIN,TOTAL 0.6 mg/dL (0.2-1); TOT PROT 6.6 g/dl (6.4-8.2)
[2023-11-05] MEDS: MULTIVITAMINS (DAILY MVI) TABLET (FP) PO SCH (17:08)
[2023-11-05] MEDS: AMINO ACIDS/PROTEIN HYDROLYS 30 ML LIQUID.PKT PO SCH (17:08)
[2023-11-06 09:28] LABS: BASO % 0.3 % (0-2.0); EOS % 0.1 % (0-4.5); HEMATOCRIT 42.7 % (35.4-49); HEMOGLOBIN 14.1 GM/dL (11.7-16.9); LYMPH % 4.9 % (8-40); MEAN CELL VOLUME 84.9 fl (80-96); MEAN PLT VOLUME 9.5 fl (7.5-11.1); MONO % 7.5 % (3.8-10.2); NEUT % 87.2 % (42.8-82.8); PLATELET COUNT 124 10^3/uL (134-434); RBC 5.03 M/mm3 (4.00-5.60); WHITE BLOOD COUNT 11.7 K/mm3 (4.0-10.0)
[2023-11-06 09:51] LABS: POTASSIUM 3.7 mmol/L (3.5-5.1)
[2023-11-06 10:01] LABS: ALBUMIN 2.4 g/dl (3.4-5.0); CALCIUM 12.9 mg/dL (8.5-10.1)
[2023-11-06 10:02] LABS: BLOOD UREA NITROGEN 46.6 mg/dL (7-18); MAGNESIUM 2.1 mg/dL (1.8-2.4)
[2023-11-06 10:05] LABS: CREATININE 2.2 mg/dL (0.55-1.3)
[2023-11-06 10:06] LABS: BILIRUBIN,TOTAL 0.8 mg/dL (0.2-1)
[2023-11-06 10:07] LABS: TOT PROT 6.3 g/dl (6.4-8.2)
[2023-11-07 08:08] LABS: BASO % 0.4 % (0-2.0); EOS % 0.6 % (0-4.5); HEMOGLOBIN 13.6 GM/dL (11.7-16.9); LYMPH % 4.9 % (8-40); MCH 27.7 pg (25.7-33.7); MCHC 32.4 g/dl (32.0-35.9); MEAN CELL VOLUME 85.5 fl (80-96); MEAN PLT VOLUME 9.7 fl (7.5-11.1); MONO % 7.4 % (3.8-10.2); NEUT % 86.7 % (42.8-82.8); PLATELET COUNT 118 10^3/uL (134-434); RBC 4.92 M/mm3 (4.00-5.60); RDW 15.6 % (11.9-15.9); WHITE BLOOD COUNT 12.3 K/mm3 (4.0-10.0)
[2023-11-07 08:23] LABS: POTASSIUM 3.5 mmol/L (3.5-5.1)
[2023-11-07 08:28] LABS: ALBUMIN 2.3 g/dl (3.4-5.0); BLOOD UREA NITROGEN 67.4 mg/dL (7-18); CALCIUM 12.2 mg/dL (8.5-10.1)
[2023-11-07 08:29] LABS: MAGNESIUM 2.3 mg/dL (1.8-2.4)
[2023-11-07 08:31] LABS: CREATININE 3.4 mg/dL (0.55-1.3)
[2023-11-07 08:32] LABS: BILIRUBIN,TOTAL 1.1 mg/dL (0.2-1)
[2023-11-07 08:33] LABS: TOT PROT 6.3 g/dl (6.4-8.2)
[2023-11-07] MEDS ORDERED: LACTULOSE 20 GM/30 ML UDC (FOR ORAL USE ONLY) PO PRN (10:18)
[2023-11-07] MEDS: LACTULOSE 20 GM/30 ML UDC (FOR ORAL USE ONLY) PO SCH (11:33)
[2023-11-07] MEDS: oxyCODONE HCL 5 MG TABLET PO PRN (11:33)
[2023-11-07] MEDS: oxyCODONE HCL 5 MG TABLET PO ONE (15:45)
[2023-11-07] MEDS: MIRTAZAPINE 15 MG TABLET (FP) PO SCH (22:06)
[2023-11-08 08:24] LABS: BASO % 0.3 % (0-2.0); EOS % 0.1 % (0-4.5); HEMATOCRIT 42.1 % (35.4-49); HEMOGLOBIN 13.7 GM/dL (11.7-16.9); LYMPH % 2.3 % (8-40); MCH 28.1 pg (25.7-33.7); MCHC 32.7 g/dl (32.0-35.9); MEAN CELL VOLUME 85.9 fl (80-96); MEAN PLT VOLUME 9.8 fl (7.5-11.1); NEUT % 90.3 % (42.8-82.8); PLATELET COUNT 128 10^3/uL (134-434); RDW 15.5 % (11.9-15.9); WHITE BLOOD COUNT 15.3 K/mm3 (4.0-10.0)
[2023-11-08 08:31] LABS: POTASSIUM 3.2 mmol/L (3.5-5.1)
[2023-11-08 08:33] LABS: ALBUMIN 2.3 g/dl (3.4-5.0); BLOOD UREA NITROGEN 57.7 mg/dL (7-18); CALCIUM 11.8 mg/dL (8.5-10.1)
[2023-11-08 08:36] LABS: MAGNESIUM 2.2 mg/dL (1.8-2.4)
[2023-11-08 08:39] LABS: CREATININE 2.6 mg/dL (0.55-1.3)
[2023-11-08 08:41] LABS: BILIRUBIN,TOTAL 0.7 mg/dL (0.2-1); TOT PROT 6.5 g/dl (6.4-8.2)
[2023-11-08] MEDS: POTASSIUM CHLORIDE ORAL LIQUID 20 MEQ/15 ML PO ONE (10:08)
[2023-11-08] MEDS: oxyCODONE HCL 5 MG TABLET PO PRN (15:23)
[2023-11-08 23:16] LABS: EPI CELLS 8 /uL (0-25.1); HYALINE CASTS 0 /uL (0-3.1); URINE APPEARANCE CLEAR; URINE BACTERIA >9,000 /uL (0-1359); URINE BILIRUBIN NEGATIVE (NEGATIVE); URINE COLOR YELLOW; URINE GLUCOSE (UA) NEGATIVE (NEGATIVE); URINE KETONE NEGATIVE (NEGATIVE); URINE LEUK ESTERASE TRACE (NEGATIVE); URINE NITRITE NEGATIVE (NEGATIVE); URINE PROTEIN 2+ (NEGATIVE); URINE RBC 81 /uL (0-23.9); URINE UROBILINOGEN 0.2 mg/dL (0.2-1.0); URINE WBC 21 /uL (0-25.8)
[2023-11-09 08:49] LABS: BASO % 0.4 % (0-2.0); EOS % 0.7 % (0-4.5); HEMATOCRIT 40.8 % (35.4-49); HEMOGLOBIN 13.8 GM/dL (11.7-16.9); LYMPH % 3.3 % (8-40); MCH 28.9 pg (25.7-33.7); MCHC 33.8 g/dl (32.0-35.9); MEAN CELL VOLUME 85.5 fl (80-96); MEAN PLT VOLUME 10.1 fl (7.5-11.1); MONO % 6.9 % (3.8-10.2); NEUT % 88.7 % (42.8-82.8); PLATELET COUNT 151 10^3/uL (134-434); RBC 4.78 M/mm3 (4.00-5.60); RDW 16.5 % (11.9-15.9); WHITE BLOOD COUNT 14.5 K/mm3 (4.0-10.0)
[2023-11-09 08:55] LABS: INR 1.28 (0.83-1.09); PROTHROMBIN TIME (PATIENT) 14.4 SEC (9.7-13.0)
[2023-11-09 09:08] LABS: POTASSIUM 3.3 mmol/L (3.5-5.1)
[2023-11-09 09:16] LABS: ALBUMIN 2.1 g/dl (3.4-5.0); BLOOD UREA NITROGEN 46.6 mg/dL (7-18); CALCIUM 11.1 mg/dL (8.5-10.1)
[2023-11-09 09:18] LABS: CREATININE 2.2 mg/dL (0.55-1.3)
[2023-11-09 09:20] LABS: BILIRUBIN,TOTAL 0.8 mg/dL (0.2-1); TOT PROT 6.3 g/dl (6.4-8.2)
[2023-11-09] MEDS: POTASSIUM CHLORIDE ORAL LIQUID 20 MEQ/15 ML PO ONE (10:37)
[2023-11-10 09:13] LABS: BASO % 0.4 % (0-2.0); EOS % 1.2 % (0-4.5); HEMATOCRIT 39.9 % (35.4-49); HEMOGLOBIN 13.1 GM/dL (11.7-16.9); LYMPH % 3.8 % (8-40); MCHC 32.7 g/dl (32.0-35.9); MEAN CELL VOLUME 85.6 fl (80-96); MEAN PLT VOLUME 9.8 fl (7.5-11.1); MONO % 7.2 % (3.8-10.2); NEUT % 87.4 % (42.8-82.8); PLATELET COUNT 142 10^3/uL (134-434); RBC 4.67 M/mm3 (4.00-5.60); RDW 16.1 % (11.9-15.9); WHITE BLOOD COUNT 13.1 K/mm3 (4.0-10.0)
[2023-11-10 09:21] LABS: POTASSIUM 3.5 mmol/L (3.5-5.1)
[2023-11-10 09:25] LABS: CALCIUM 11.2 mg/dL (8.5-10.1)
[2023-11-10 09:26] LABS: ALBUMIN 1.9 g/dl (3.4-5.0); BLOOD UREA NITROGEN 41.9 mg/dL (7-18); MAGNESIUM 1.8 mg/dL (1.8-2.4)
[2023-11-10 09:28] LABS: CREATININE 2.2 mg/dL (0.55-1.3)
[2023-11-10 09:30] LABS: BILIRUBIN,TOTAL 0.5 mg/dL (0.2-1)
[2023-11-11 08:47] LABS: BASO % 0.5 % (0-2.0); EOS % 0.7 % (0-4.5); HEMATOCRIT 38.1 % (35.4-49); HEMOGLOBIN 12.5 GM/dL (11.7-16.9); LYMPH % 4.3 % (8-40); MCH 28.1 pg (25.7-33.7); MCHC 32.8 g/dl (32.0-35.9); MEAN CELL VOLUME 85.9 fl (80-96); MEAN PLT VOLUME 9.5 fl (7.5-11.1); MONO % 7.1 % (3.8-10.2); NEUT % 87.4 % (42.8-82.8); PLATELET COUNT 159 10^3/uL (134-434); RBC 4.44 M/mm3 (4.00-5.60); RDW 16.1 % (11.9-15.9); WHITE BLOOD COUNT 13.4 K/mm3 (4.0-10.0)
[2023-11-11 08:53] LABS: POTASSIUM 3.4 mmol/L (3.5-5.1)
[2023-11-11 09:03] LABS: BLOOD UREA NITROGEN 39.9 mg/dL (7-18); CALCIUM 11.1 mg/dL (8.5-10.1)
[2023-11-11 09:04] LABS: MAGNESIUM 1.8 mg/dL (1.8-2.4)
[2023-11-11 09:07] LABS: CREATININE 2.3 mg/dL (0.55-1.3)
[2023-11-11 09:08] LABS: BILIRUBIN,TOTAL 0.6 mg/dL (0.2-1); TOT PROT 5.9 g/dl (6.4-8.2)
[2023-11-11] MEDS: POTASSIUM CHLORIDE ORAL LIQUID 20 MEQ/15 ML PO ONE (11:22)
[2023-11-11] MEDS: AMINO ACIDS 4.25%/D5W 1,000 ML IV SCH (11:22)
[2023-11-11] MEDS: ACETAMINOPHEN 325 MG TABLET (FP) PO PRN (20:20)
[2023-11-12 08:01] LABS: POTASSIUM 3.5 mmol/L (3.5-5.1)
[2023-11-12 08:05] LABS: BASO % 0.5 % (0-2.0); EOS % 1.1 % (0-4.5); HEMATOCRIT 38.1 % (35.4-49); HEMOGLOBIN 12.7 GM/dL (11.7-16.9); LYMPH % 4.7 % (8-40); MCH 28.3 pg (25.7-33.7); MCHC 33.3 g/dl (32.0-35.9); MEAN PLT VOLUME 9.5 fl (7.5-11.1); MONO % 6.6 % (3.8-10.2); NEUT % 87.1 % (42.8-82.8); PLATELET COUNT 146 10^3/uL (134-434); RBC 4.49 M/mm3 (4.00-5.60); RDW 16.7 % (11.9-15.9); WHITE BLOOD COUNT 12.4 K/mm3 (4.0-10.0)
[2023-11-12 08:08] LABS: ALBUMIN 1.9 g/dl (3.4-5.0); CALCIUM 10.8 mg/dL (8.5-10.1)
[2023-11-12 08:09] LABS: BLOOD UREA NITROGEN 43.3 mg/dL (7-18); MAGNESIUM 1.5 mg/dL (1.8-2.4)
[2023-11-12 08:11] LABS: CREATININE 1.9 mg/dL (0.55-1.3)
[2023-11-12 08:15] LABS: BILIRUBIN,TOTAL 0.6 mg/dL (0.2-1)
[2023-11-12] MEDS: LACTULOSE 20 GM/30 ML UDC (FOR ORAL USE ONLY) PO SCH (09:26)
[2023-11-12] MEDS: MAGNESIUM SULF 50% (8.12 MEQ/2 ML-1 GM VIAL) IVPB ONE (09:59)
[2023-11-13 09:56] LABS: BASO % 0.7 % (0-2.0); EOS % 0.6 % (0-4.5); HEMATOCRIT 37.6 % (35.4-49); HEMOGLOBIN 12.7 GM/dL (11.7-16.9); LYMPH % 2.6 % (8-40); MCH 28.9 pg (25.7-33.7); MCHC 33.8 g/dl (32.0-35.9); MEAN CELL VOLUME 85.4 fl (80-96); MEAN PLT VOLUME 10.2 fl (7.5-11.1); MONO % 6.7 % (3.8-10.2); NEUT % 89.4 % (42.8-82.8); PLATELET COUNT 157 10^3/uL (134-434); RDW 16.2 % (11.9-15.9); WHITE BLOOD COUNT 17.1 K/mm3 (4.0-10.0)
[2023-11-13 10:18] LABS: ALBUMIN 1.8 g/dl (3.4-5.0); CALCIUM 11.1 mg/dL (8.5-10.1); CREATININE 2.3 mg/dL (0.55-1.3); MAGNESIUM 2.2 mg/dL (1.8-2.4)
[2023-11-13 10:20] LABS: BILIRUBIN,TOTAL 0.7 mg/dL (0.2-1); TOT PROT 6.3 g/dl (6.4-8.2)
[2023-11-13] MEDS: SODIUM CHLORIDE 0.45% 1,000 ML IV SCH (14:09)
[2023-11-13] MEDS: traMADol HCL 50 MG TABLET PO PRN (17:49)
[2023-11-14 10:19] LABS: BASO % 0.5 % (0-2.0); EOS % 1.2 % (0-4.5); HEMATOCRIT 37.6 % (35.4-49); HEMOGLOBIN 12.2 GM/dL (11.7-16.9); LYMPH % 2.4 % (8-40); MCH 27.8 pg (25.7-33.7); MCHC 32.6 g/dl (32.0-35.9); MEAN CELL VOLUME 85.3 fl (80-96); MEAN PLT VOLUME 9.9 fl (7.5-11.1); MONO % 6.2 % (3.8-10.2); NEUT % 89.7 % (42.8-82.8); PLATELET COUNT 142 10^3/uL (134-434); RDW 16.4 % (11.9-15.9); WHITE BLOOD COUNT 15.5 K/mm3 (4.0-10.0)
[2023-11-14 10:36] LABS: POTASSIUM 3.8 mmol/L (3.5-5.1)
[2023-11-14 10:40] LABS: ALBUMIN 1.9 g/dl (3.4-5.0); BLOOD UREA NITROGEN 58.8 mg/dL (7-18); CALCIUM 11.4 mg/dL (8.5-10.1)
[2023-11-14 10:42] LABS: MAGNESIUM 2.1 mg/dL (1.8-2.4)
[2023-11-14 10:45] LABS: PHOSPHOROUS 3.2 mg/dL (2.5-4.9); TOT PROT 6.3 g/dl (6.4-8.2)
[2023-11-14 10:46] LABS: CREATININE 2.3 mg/dL (0.55-1.3)
[2023-11-14 10:47] LABS: BILIRUBIN,TOTAL 0.7 mg/dL (0.2-1)
[2023-11-14 23:02] LABS: PHOSPHOROUS 1.4 mg/dL (2.5-4.9)
[2023-11-15 08:21] LABS: POTASSIUM 3.7 mmol/L (3.5-5.1)
[2023-11-15 08:29] LABS: CALCIUM 11.9 mg/dL (8.5-10.1)
[2023-11-15 08:30] LABS: ALBUMIN 1.8 g/dl (3.4-5.0); BLOOD UREA NITROGEN 56.3 mg/dL (7-18); MAGNESIUM 2.2 mg/dL (1.8-2.4)
[2023-11-15 08:33] LABS: BASO % 0.4 % (0-2.0); CREATININE 2.4 mg/dL (0.55-1.3); HEMOGLOBIN 11.8 GM/dL (11.7-16.9); MCH 28.4 pg (25.7-33.7); MCHC 33.8 g/dl (32.0-35.9); MEAN PLT VOLUME 9.7 fl (7.5-11.1); MONO % 5.4 % (3.8-10.2); NEUT % 90.2 % (42.8-82.8); PLATELET COUNT 145 10^3/uL (134-434); RBC 4.17 M/mm3 (4.00-5.60); RDW 16.5 % (11.9-15.9); WHITE BLOOD COUNT 12.5 K/mm3 (4.0-10.0)
[2023-11-15] MEDS: SODIUM CHLORIDE 0.45% 1,000 ML IV SCH (14:40)
[2023-11-16 07:55] LABS: HEMATOCRIT 33.7 % (35.4-49); HEMOGLOBIN 11.4 GM/dL (11.7-16.9); MCH 28.2 pg (25.7-33.7); MEAN CELL VOLUME 82.9 fl (80-96); MEAN PLT VOLUME 9.4 fl (7.5-11.1); PLATELET COUNT 141 10^3/uL (134-434); RBC 4.06 M/mm3 (4.00-5.60); RDW 16.3 % (11.9-15.9)
[2023-11-16 08:37] LABS: POTASSIUM 3.7 mmol/L (3.5-5.1)
[2023-11-16 08:40] LABS: ALBUMIN 1.7 g/dl (3.4-5.0); CALCIUM 12.5 mg/dL (8.5-10.1)
[2023-11-16 08:41] LABS: BLOOD UREA NITROGEN 47.7 mg/dL (7-18); MAGNESIUM 1.8 mg/dL (1.8-2.4)
[2023-11-16 08:43] LABS: CREATININE 2.2 mg/dL (0.55-1.3)
[2023-11-16 08:45] LABS: BILIRUBIN,TOTAL 0.8 mg/dL (0.2-1)
[2023-11-16 09:45] LABS: PLATELET ESTIMATE ADEQUATE
[2023-11-17] MEDS: SODIUM CHLORIDE 0.45% 1,000 ML IV SCH (18:22)
[2023-11-17] MEDS: POTASSIUM CHLORIDE 10 MEQ in AMINO ACIDS 4.25%/D5W 1,000 ML IV SCH (18:22)
[2023-11-18 08:48] LABS: HEMATOCRIT 37.2 % (35.4-49); HEMOGLOBIN 12.5 GM/dL (11.7-16.9); MCH 28.6 pg (25.7-33.7); MCHC 33.6 g/dl (32.0-35.9); MEAN CELL VOLUME 85.2 fl (80-96); MEAN PLT VOLUME 9.8 fl (7.5-11.1); PLATELET COUNT 135 10^3/uL (134-434); RBC 4.37 M/mm3 (4.00-5.60); RDW 16.7 % (11.9-15.9); WHITE BLOOD COUNT 16.1 K/mm3 (4.0-10.0)
[2023-11-18 09:09] LABS: CHLORIDE 112 mmol/L (98-107); POTASSIUM 3.8 mmol/L (3.5-5.1); SODIUM 140 mmol/L (136-145)
[2023-11-18 09:19] LABS: ALBUMIN 1.9 g/dl (3.4-5.0); ANION GAP 7 mmol/L (4-13); BLOOD UREA NITROGEN 51.6 mg/dL (7-18); CO2 22 mmol/L (21-32); GLUCOSE,RANDOM 97 mg/dL (74-106); MAGNESIUM 1.7 mg/dL (1.8-2.4)
[2023-11-18 09:22] LABS: CREATININE 2.2 mg/dL (0.55-1.3); SGOT/AST 501 U/L (15-37); SGPT/ALT 148 U/L (13-61)
[2023-11-18 09:23] LABS: ALK PHOS 385 U/L (45-117); BILIRUBIN,TOTAL 0.6 mg/dL (0.2-1); TOT PROT 6.5 g/dl (6.4-8.2)
[2023-11-18 10:20] LABS: CALCIUM 15.4 mg/dL (8.5-10.1)
[2023-11-18 10:36] LABS: PLATELET ESTIMATE ADEQUATE
[2023-11-18] MEDS: MAGNESIUM SULF 50% (8.12 MEQ/2 ML-1 GM VIAL) IVPB ONE (14:05)
[2023-11-18] MEDS: SODIUM CHLORIDE 1,000 ML IV SCH (14:05)
[2023-11-18] MEDS ORDERED: FENTANYL PATCH WASTE TD PRN (14:35)
[2023-11-18] MEDS: fentaNYL 12mcg/hr PATCH.TD72 TD SCH (14:43)
[2023-11-18] MEDS: DENOSUMAB 120 MG/1.7 ML VIAL SQ ONE (15:45)
[2023-11-20] MEDS: ACETAMINOPHEN 650 MG SUPP.RECT RC ONE (13:52)
[2023-11-20] MEDS: LORazepam 2 MG/ML SDV VIAL IVPUSH ONE (13:53)
[2023-11-20] MEDS ORDERED: FENTANYL PATCH WASTE TD PRN (14:25)
[2023-11-20] MEDS: fentaNYL 25mcg/hr PATCH.TD72 TD SCH (15:37)
[2023-11-21] MEDS: LORazepam 2 MG/ML SDV VIAL IVPUSH ONE (07:23)
[2023-11-21] MEDS: MORPHINE SULFATE/0.9% NACL/PF 100 MG/100 ML BAG IVPB SCH (10:01)
[2023-11-21] MEDS: LORazepam 2 MG/ML SDV VIAL IVPUSH PRN (11:34)
[2023-11-21] MEDS: ACETAMINOPHEN 1000 MG/100 ML BAG IVPB ONE (12:23)
[2023-11-22 10:16] VITALS: BP 151/53; PULSE 106; RESP 36; TEMP 101.3
[2023-11-22] MEDS: ACETAMINOPHEN 1000 MG/100 ML BAG IVPB ONE (11:01)
== END 2023-11-22 18:40 | disposition expired | DRG 436 ==
LOC: JER 12:48 → JERBED 19:07 → J8W 11-04 02:49
PROVIDERS: ADMIT Internal Medicine; ATTEND Nurse Practitioner Family
DX: C22.0 Liver cell carcinoma (principal); C79.51 Secondary malignant neoplasm of bone; N17.9 Acute kidney failure, unspecified; I24.89 Other forms of acute ischemic heart disease; M62.82 Rhabdomyolysis; F11.23 Opioid dependence with withdrawal; E44.0 Moderate protein-calorie malnutrition; M54.6 Pain in thoracic spine; R11.2 Nausea with vomiting, unspecified; E83.52 Hypercalcemia; M54.9 Dorsalgia, unspecified; E83.42 Hypomagnesemia; K21.9 Gastro-esophageal reflux disease without esophagitis; G89.3 Neoplasm related pain (acute) (chronic); K74.60 Unspecified cirrhosis of liver; R79.89 Other specified abnormal findings of blood chemistry; K80.20 Calculus of gallbladder without cholecystitis without obstruction; Z21 Asymptomatic human immunodeficiency virus [HIV] infection status; I12.9 Hypertensive chronic kidney disease with stage 1 through stage 4 chronic kidney disease, or unspecified chronic kidney disease; N18.30 Chronic kidney disease, stage 3 unspecified; N40.0 Benign prostatic hyperplasia without lower urinary tract symptoms; R62.7 Adult failure to thrive; Z68.26 Body mass index [BMI] 26.0-26.9, adult
CPT/HCPCS: 36415; 71045-TC-FY; 71250-TC; 74176-TC; 74181-TC; 76775-TC; 80048; 80053; 80307; 81003; 82140; 82550; 82553; 83036; 83605; 83690; 83735; 84100; 84155; 84165; 84484; 85025; 85027; 85610; 86140; 86301; 86704; 87340; 87517; 87522; 93005; 93010; 93306-TC; 97116-GP; 97161-GP; 99285-25; J0131; J0897; J1644; J3489